=== PATIENT | female | born 1940 | race Caucasian/White ===

== ENCOUNTER 2019-06-06 09:33 | Outpatient (RCR) | payer MEDICARE, OTHER, SELFPAY | END 2019-06-24 23:59 | disposition home or self-care (01) | LOC: SPT 09:33 | PROVIDERS: Family Provider Electrodiagnostic Medicine; PCP Electrodiagnostic Medicine; Referring Provider Electrodiagnostic Medicine; Visit Provider Electrodiagnostic Medicine | DX: M62.830 Muscle spasm of back (principal); G89.29 Other chronic pain; M54.2 Cervicalgia; M43.6 Torticollis | CPT/HCPCS: 97161 ==

== ENCOUNTER 2019-06-13 10:14 | Emergency (ER) | payer MEDICARE, OTHER, SELFPAY ==
[2019-06-13 10:20] VITALS: BP 174/72; PULSE 60; RESP 17; TEMP 36.4; O2SAT 93; BMI 28.6
--- NOTE | 2019-06-13 10:20 | PC.NURSE ---
Swelling along the lateral malleolus. Pain with ROM
--- NOTE | 2019-06-13 10:24 | ED_ITS ---
Documented by User: [email or web address] Frederick 06/15/19 01:11 HPI - Extremity Problem General: Chief complaint: Extremity Injury, Lower Stated complaint: fall/right ankle pain Time Seen by Provider: 06/13/19 10:19 History of Present Illness: HPI Narrative: Patient is a 70-year-old female comes to the ED with right ankle pain. Patient was using a step ladder at home and when she was climbing down and stepped back the ladder slid a little caused her to twist her right foot and ankle. She denies any head trauma or loss of consciousness. Her only complaint was right ankle pain. She is able to bear weight, but it does cause her some right ankle pain. Pain with range of motion of ankle. She has not taken anything medication for pain. Denies fever, chills, chest pain, shortness of breath, bowel pain, nausea, vomiting, bowel symptoms, urine symptoms. Denies any numbness or tingling, loss of sensation or weakness to the extremities. Review of Systems General: Reports: 10 or more systems reviewed and unremarkable except in HPI and below PFSH ED PFSH: Statuses (acute, chronic, etc) shown below reflect problem list status as previously entered and may not be historically accurate Social History Smoking and tobacco status: former smoker Physical Exam Const: COMMON NORMALS: oriented x3 HENMT: COMMON NORMALS: normocephalic HEAD & SCALP: normocephalic MOUTH: oral and palatal mucosa normal THROAT: posterior oropharynx normal and uvula midline Neck/C-Spine: COMMON NORMALS: supple GENERAL: Yes normal visual inspection Resp: COMMON NORMALS: normal respiratory effort, no retractions, no use of accessory muscles and clear to auscultation bilaterally AUSCULTATION: clear to auscultation bilaterally Cardio: COMMON NORMALS: regular rate, regular rhythm, S1 normal heart sound, S2 normal heart sound, no gallops, no clicks, no murmurs and peripheral pulses 2+ throughout RATE: regular rate RHYTHM: regular rhythm HEART SOUNDS: S1 normal and S2 normal PERIPHERAL PULSES: pulses 2+ throughout GI: COMMON NORMALS: normal to inspection, nondistended, normoactive bowel sounds, soft to palpation, non-tender and no masses PALPATION: Yes soft : COMMON NORMALS: Yes no CVA tenderness BLADDER/KIDNEY EXAM: Yes no CVA tenderness Back/Pelvis: COMMON NORMALS: no CVA tenderness Extremity: COMMON NORMALS: normal to inspection RIGHT LOWER EXTREMITY: Yes lower leg (Mild tenderness on distal lateral side of lower leg) Right lower leg: Yes palpation and Yes neurovascular exam (intact) and Yes ankle joint (no swelling or ecchymosis seen on exam) Right ankle: Yes inspection, Yes palpation (pain on lateral malleolus- ant talofib lig and ant tibfib lig), Yes ROM (normal but with pain) and Yes neurovascular exam (intact) Neuro: COMMON NORMALS: oriented x3 and moves all extremities Course ED course: I talked with patient about pain management options and she did not want any hydrocodone. She said her pain is manageable and would prefer to take [id number] ibuprofen or Tylenol. Vital Signs: Vital signs: Vital Signs Temperature 97.5 F L 06/13/19 10:20 Pulse Rate 70 06/13/19 14:37 Respiratory Rate 15 06/13/19 14:37 Blood Pressure 137/75 06/13/19 14:37 Pulse Oximetry 97 06/13/19 14:37 MDM - Extremity (Nontraumatic) Imaging Data^: Xray Ortho: Radiologist's impression: [place] [address] XRay Report Signed Patient: Silvia Garcia Unit #: [id number] : [id number] Age/Sex: 78 / F ADM Date: 06/13/19 Loc: ER Room/Bed: Attending Dr: Ordering Provider/Ordering MD: Titi Rincon Date of Service: 06/13/19 Procedure(s): XR ankle RT 2V 62516 Accession Number(s): [id number] Report Number: [id number] WS: [id number] RIGHT ANKLE: 2 VIEW(S) TECHNIQUE: AP and lateral. HISTORY: Right ankle pain and injury COMPARISON: None available. Normal alignment at the ankle. Lucency through the distal fibula indeterminate for fracture. No displacement. No joint effusion or widening of the ankle mortise. Mild narrowing of the joint space. Small calcaneal spur. XR/XR ankle RT 2V 26319 IMPRESSION: 1. Suspicious for nondisplaced distal fibular fracture with adjacent soft tissue edema. 2. Recommend three-view imaging of the RIGHT ankle. Dictated By: Christy Flowers DO Signed By: Christy Flowers DO Signed Date/Time: 06/13/19 1205 DD/ 1154 Discharge Plan Discharge Patient Disposition: Home, Self-Care Clinical Impression: Fracture of fibula, distal, closed Qualifiers: Encounter type: initial encounter Fracture morphology: unspecified fracture morphology Laterality: right Qualified Code(s): S82.831A - Other fracture of upper and lower end of right fibula, initial encounter for closed fracture Condition: Stable Prescriptions: No Action metoprolol succinate 100 mg tablet extended release 24 hr 100 mg PO DAILY RF: 0 potassium chloride 10 mEq tablet extended release 10 meq PO DAILY RF: 0 omeprazole 40 mg capsule,delayed release(DR/EC) 40 mg PO DAILY RF: 0 simvastatin 20 mg tablet 20 mg PO DAILY RF: 0 valsartan 160 mg tablet 160 mg PO QAM RF: 0 Discharge Orders: Discharge Order (Routine); Ordered 06/13/19 Ordered By: Titi Rincon Referrals: [facility] [Provider Group] Roc Sage DO [Primary Care Provider] - Discharge Diet: Regular Discharge Activity: Limit activity as instructed Activity Restrictions/Additional Instructions: See orthopedics will be calling you in the next couple days to set up an appointment. Continue nonweightbearing until you see orthopedic doctor for evaluation. Take ibuprofen or Tylenol for pain. Drink plenty of fluids. Use crutches or walker to help with ambulating. Discharge Date/Time: 06/13/19 14:40 Coding Level of Care Code ED Lactation Nurse for Chg Fwd Documented by User: Pa Ball DO 06/15/19 06:44 HPI - Extremity Problem General: Chief complaint: Extremity Injury, Lower Stated complaint: fall/right ankle pain Time Seen by Provider: 06/13/19 10:19 PFSH ED PFSH: Statuses (acute, chronic, etc) shown below reflect problem list status as previously entered and may not be historically accurate Social History Smoking and tobacco status: former smoker Course Vital Signs: Vital signs: Vital Signs Temperature 97.5 F L 06/13/19 10:20 Pulse Rate 70 06/13/19 14:37 Respiratory Rate 15 06/13/19 14:37 Blood Pressure 137/75 06/13/19 14:37 Pulse Oximetry 97 06/13/19 14:37 Discharge Plan Discharge Patient Disposition: Home, Self-Care Clinical Impression: Fracture of fibula, distal, closed Qualifiers: Encounter type: initial encounter Fracture morphology: unspecified fracture morphology Laterality: right Qualified Code(s): S82.831A - Other fracture of upper and lower end of right fibula, initial encounter for closed fracture Condition: Stable Prescriptions: No Action metoprolol succinate 100 mg tablet extended release 24 hr 100 mg PO DAILY RF: 0 potassium chloride 10 mEq tablet extended release 10 meq PO DAILY RF: 0 omeprazole 40 mg capsule,delayed release(DR/EC) 40 mg PO DAILY RF: 0 simvastatin 20 mg tablet 20 mg PO DAILY RF: 0 valsartan 160 mg tablet 160 mg PO QAM RF: 0 Discharge Orders: Discharge Order (Routine); Ordered 06/13/19 Ordered By: Titi Rincon Referrals: [facility] [Provider Group] Roc Sage DO [Primary Care Provider] - Discharge Diet: Regular Discharge Activity: Limit activity as instructed Activity Restrictions/Additional Instructions: See orthopedics will be calling you in the next couple days to set up an appointment. Continue nonweightbearing until you see orthopedic doctor for evaluation. Take ibuprofen or Tylenol for pain. Drink plenty of fluids. Use crutches or walker to help with ambulating. Discharge Date/Time: 06/13/19 14:40 Coding Level of Care Code ED Lactation Nurse for Beka Brown
--- NOTE | 2019-06-13 10:30 | XR_ITS ---
WS: [id number] RIGHT ANKLE: 2 VIEW(S) TECHNIQUE: AP and lateral. HISTORY: Right ankle pain and injury COMPARISON: None available. Normal alignment at the ankle. Lucency through the distal fibula indeterminate for fracture. No displ acement. No joint effusion or widening of the ankle mortise. Mild narrowing of the joint space. Small calcaneal spur. XR/XR ankle RT 2V [id number] IMPRESSION: 1. Suspicious for nondisplaced distal fibular fracture with adjacent soft tiss ue edema. 2. Recommend three-view imaging of the RIGHT ankle.
[2019-06-13] MEDS: ibuprofen 600 mg Tablet PO (10:34)
--- NOTE | 2019-06-13 10:35 | PC.NURSE ---
X-ray at bedside
--- NOTE | 2019-06-13 12:18 | XRR_ITS ---
PROCEDURE INFORMATION: Exam: XR Right Ankle Exam date and time: 06/13/2019 12:35 PM Age: 78 years old Clinical indication: Pain; Ankle; Right; Additional info: Ankle pain and injury TECHNIQUE: Imaging protocol: XR Right ankle. Views: 1 or 2 views. COMPARISON: CR XR ankle RT 2V [id number] 06/13/2019 10:31 AM FINDINGS: Bones/joints: Mild periosteal reaction over the distal fibular shaft with heterogeneous densities involving the cortex and medullary bone suggesting possible healing hairline fracture versus stress/insufficiency fracture. Soft tissues: Normal. XR/XR ankle RT 1V [id number] IMPRESSION: Mild periosteal reaction over the distal fibular shaft with heterogeneous densities involving the cortex and medullary bone suggesting possible healing hairline fracture versus stress/insufficiency fracture. Osteomyelitis would be less likely.
--- NOTE | 2019-06-13 14:27 | PC.NURSE ---
Crutches ordered. Patient refused.
[2019-06-13 14:37] VITALS: BP 137/75; PULSE 70; RESP 15; O2SAT 97
--- NOTE | 2019-06-13 15:31 | DCPLANNER ---
body care manager was asked to schedule a follow up appointment for patient with ortho. body care manager called the ortho clinic, spoke with Yessenia, gave clinic patients information. body care manager was told that patients information would be printed and reviewed. Clinic will call case management social worker and patient with appointment information.
--- NOTE | 2019-06-14 11:57 | DCPLANNER ---
Patient had a follow up appointment scheduled for 06.14.[address] Beckman with ortho. Patient attended the appointment.
== END 2019-06-13 14:40 | disposition home or self-care (01) ==
PROVIDERS: Emergency Provider Physician Assistant; Family Provider Electrodiagnostic Medicine; PCP Electrodiagnostic Medicine
DX: S82.831A Other fracture of upper and lower end of right fibula, initial encounter for closed fracture (principal); X50.1XXA Overexertion from prolonged static or awkward postures, initial encounter; Z87.891 Personal history of nicotine dependence
CPT/HCPCS: 73600; 99281

== ENCOUNTER 2019-07-14 11:46 | Outpatient (CLI) | payer MEDICARE, OTHER, SELFPAY ==
--- NOTE | 2019-07-14 11:53 | XR_ITS ---
WS: [id number] RIGHT ANKLE: 3 VIEW(S) TECHNIQUE: AP, oblique(s) and lateral. HISTORY: ANKLE SPRAIN, RIGHT, PAIN IN JOINT INVOLVING ANKLE AND FOOT COMPARISON: 06/13/2019 Oblique fracture in the distal fibula is again identified. There is mild callus formation and healing . Slight separation as compared to the prior study but not significant. Fracture line is by 2 mm. Mild narrowing of the tibiotalar joint. Moderate amount of soft tissue edema surrounding the ankle, greatest laterally. Small calcaneal spur. XR/XR ankle RT min 3V* [id number] IMPRESSION: Oblique, nondisplaced healing fracture distal fibula. Soft tissue edema.
== END 2019-07-14 11:47 | disposition home or self-care (01) ==
LOC: RADWPI 11:50
PROVIDERS: Family Provider Electrodiagnostic Medicine; PCP Electrodiagnostic Medicine; Visit Provider Electrodiagnostic Medicine
DX: S93.401A Sprain of unspecified ligament of right ankle, initial encounter (principal); M25.571 Pain in right ankle and joints of right foot; S82.831A Other fracture of upper and lower end of right fibula, initial encounter for closed fracture; X58.XXXA Exposure to other specified factors, initial encounter; R60.9 Edema, unspecified
CPT/HCPCS: 73610

== ENCOUNTER → 2019-07-28 14:39 | Outpatient (BNVA) | payer MEDICARE, OTHER, SELFPAY | PROVIDERS: Family Provider Electrodiagnostic Medicine; PCP Electrodiagnostic Medicine; Visit Provider Podiatrist Foot & Ankle Surgery | DX: S82.841A Displaced bimalleolar fracture of right lower leg, initial encounter for closed fracture (principal); X58.XXXA Exposure to other specified factors, initial encounter | CPT/HCPCS: 73610 ==

== ENCOUNTER 2019-07-28 16:36 | Outpatient (CLI) | payer MEDICARE, OTHER, SELFPAY | END 2019-07-28 16:37 | disposition home or self-care (01) | LOC: SPT 16:36 | PROVIDERS: Family Provider Electrodiagnostic Medicine; PCP Electrodiagnostic Medicine; Visit Provider Podiatrist Foot & Ankle Surgery | DX: M62.830 Muscle spasm of back (principal); M54.2 Cervicalgia; M43.6 Torticollis | CPT/HCPCS: L4361 ==

== ENCOUNTER → 2019-08-22 08:30 | Outpatient (BNVA) | payer MEDICARE, OTHER, SELFPAY | PROVIDERS: Family Provider Electrodiagnostic Medicine; PCP Electrodiagnostic Medicine; Visit Provider Podiatrist Foot & Ankle Surgery | DX: S82.831A Other fracture of upper and lower end of right fibula, initial encounter for closed fracture (principal); X58.XXXA Exposure to other specified factors, initial encounter; Z46.89 Encounter for fitting and adjustment of other specified devices; S82.391D Other fracture of lower end of right tibia, subsequent encounter for closed fracture with routine healing; X58.XXXD Exposure to other specified factors, subsequent encounter | CPT/HCPCS: 73610; L1902 ==

== ENCOUNTER 2019-08-22 10:20 | Outpatient (CLI) | payer MEDICARE, OTHER, SELFPAY | END 2019-08-22 10:21 | disposition home or self-care (01) | LOC: SPT 10:21 | PROVIDERS: Family Provider Electrodiagnostic Medicine; PCP Electrodiagnostic Medicine; Visit Provider Podiatrist Foot & Ankle Surgery | DX: Z46.89 Encounter for fitting and adjustment of other specified devices (principal); S82.391D Other fracture of lower end of right tibia, subsequent encounter for closed fracture with routine healing; X58.XXXD Exposure to other specified factors, subsequent encounter | CPT/HCPCS: L1902 ==

== ENCOUNTER → 2019-10-19 09:03 | Outpatient (BNVA) | payer MEDICARE, OTHER, SELFPAY | PROVIDERS: Family Provider Electrodiagnostic Medicine; PCP Electrodiagnostic Medicine; Visit Provider Nurse Practitioner Family | DX: N30.00 Acute cystitis without hematuria (principal); R39.11 Hesitancy of micturition | CPT/HCPCS: 81001 ==

== ENCOUNTER 2019-12-02 08:59 | Outpatient (CLI) | payer MEDICARE, OTHER, SELFPAY ==
--- NOTE | 2019-12-02 09:10 | MM_ITS ---
WS: [id number] BILATERAL DIGITAL SCREENING MAMMOGRAPHY WITH CAD CLINICAL INFORMATION: SCREENING HISTORY: Screening mammogram. No current complaints. COMPARISON: TECHNIQUE: Bilateral CC and MLO views. FINDINGS: Scattered fibroglandular densities bilaterally. Stable asymmetric dense breast parenchyma subareolar left breast with nipple retraction is unchanged. No suspicious focal mass, asymmetry, calcifications, or architectural distortion. No evidence of malignancy. Punctate calcifications. Vascular calcificat ions. MM/[place] [id number] IMPRESSION: BI-RADS: 2-Benign FOLLOW UP: 1 Year Follow-up Recommend return to annual screening mammography.
== END 2019-12-02 09:00 | disposition home or self-care (01) ==
LOC: RADSHAW 09:04
PROVIDERS: PCP Electrodiagnostic Medicine; Visit Provider Electrodiagnostic Medicine
DX: Z12.31 Encounter for screening mammogram for malignant neoplasm of breast (principal)
CPT/HCPCS: 77067

== ENCOUNTER 2020-01-18 10:20 | Outpatient (CLI) | payer MEDICARE, OTHER, SELFPAY ==
--- NOTE | 2020-01-18 10:28 | XRR_ITS ---
PROCEDURE INFORMATION: Exam: XR Left Shoulder Exam date and time: 01/18/2020 10:47 AM Age: 79 years old Clinical indication: Pain and injury or trauma; Fall; Initial encounter; Blunt trauma (contusions or hematomas; Shoulder; Left; Injury details: Fell a couple of weeks ago, pain started last night; Additional info: L shoulder pain/l rotator cuff syndrome TECHNIQUE: Imaging protocol: XR Left shoulder. Views: AP internal, neutral and external rotation images of the left shoulder. COMPARISON: No relevant prior studies available. FINDINGS: Bones/joints: Normal. Soft tissues: Normal. XR/XR shoulder LT min 2V* [id number] IMPRESSION: No acute findings.
== END 2020-01-18 10:21 | disposition home or self-care (01) ==
LOC: RAD 10:24
PROVIDERS: PCP Electrodiagnostic Medicine; Visit Provider Electrodiagnostic Medicine
DX: M25.512 Pain in left shoulder (principal)
CPT/HCPCS: 73030

== ENCOUNTER → 2020-01-20 09:50 | Outpatient (BNVA) | payer MEDICARE, OTHER, SELFPAY | PROVIDERS: PCP Electrodiagnostic Medicine; Visit Provider Urology | DX: N39.0 Urinary tract infection, site not specified (principal); R33.9 Retention of urine, unspecified | CPT/HCPCS: 81001 ==

== ENCOUNTER 2020-04-23 10:41 | Outpatient (CLI) | payer MEDICARE, SELFPAY ==
--- NOTE | 2020-04-23 11:11 | CT_ITS ---
WS: [id number] CT CHEST WITH INTRAVENOUS CONTRAST HISTORY: LUNG NODULE, NECK MASS, COPD TECHNIQUE: Contiguous 5 mm axial imaging performed on the thorax. Coronal and sagittal reformats are submitted. All CT scans at [facility] use at least one of these dose optimization techniq ues: automated exposure control; mA and/or kV adjustment per patient size (includes targeted exams wh ere dose is matched to clinical indication); or iterative reconstruction. CONTRAST: Omnipaque 300; 95 mL IV. DLP: 563.13 mGycm COMPARISON: 06/22/2018 Lungs and central airway: Mild pulmonary hyperexpansion from emphysema. There is very mild diffuse in terstitial thickening bilaterally. There are several subcentimeter nodules in the RIGHT middle and RI GHT lower lobe. These nodules were present on 06/22/2018 but very minimally increased in size. Some th fidencio nodules have increased by 1 to 2 mm and are slightly more consolidated. Pleura: Normal. No pleural effusion. Heart and pericardium: Moderately enlarged heart. Heavy calcification along the mitral annular valve plane. Diffuse small pericardial effusion similar to the prior study. Mediastinum and tonny: No mediastinum or hilar adenopathy. Vessels: Mild atherosclerosis aorta. Pulmonary artery size is slightly enlarged. Chest wall and lower neck: No soft tissue masses. Upper abdomen: Scattered nonspecific hypodensities in the liver are too small to characterize. No adr enal mass. Osseous structures: Mild thoracic spondylosis. No osteoblastic or osteolytic bone disease. CT/CT chest w con* [id number] IMPRESSION: 1. Several small, subcentimeter nodules which are noncalcified in the RIGHT mi ddle and RIGHT lower lobes. Very minimal increase in size since 06/22/2018. Low- grade neoplasm versus benign etiology. As there has been very minimal interval change recommend follow-up chest CT in 6 months. 2. Chronic emphysema. 3. Moderately enlarged heart with a small pericardial effusion.
--- NOTE | 2020-04-23 11:43 | CT_ITS ---
WS: [id number] CT NECK WITH CONTRAST HISTORY: NECK MASS TECHNIQUE: Contiguous 5 mm axial images are performed through the neck with intravenous contrast. Sag ittal and coronal reformats are also submitted. All CT scans at [facility] use at least o ne of these dose optimization techniques: automated exposure control; mA and/or kV adjustment per pat ient size (includes targeted exams where dose is matched to clinical indication); or iterative recons truction. CONTRAST: CONTRAST: Omnipaque 300; 95 mL IV. DLP: 2511.43 mGy-cm. COMPARISON: None available. Marker is placed over the LEFT neck at the palpable site. The sternocleidomastoid muscle and a promin ent superficial vein either present or dislocation. There is no suspicious mass. Nasopharynx, oropharynx, hypopharynx and larynx are unremarkable. No soft tissue masses or abnormal e nhancement. Torus tubarius and fossa of Rosenmuller and parapharyngeal fat are normal. No significant lymphadenopathy is identified. Small caliber thyroid. No nodules. Degenerative disc disease at C5-6 and C6-7. No fractures. Moderate foraminal stenosis at C5-6 and C6- 7. Moderate amount of calcification at the carotid bifurcations. Stenosis less than 50%. Visualized portions of the skull base demonstrate no abnormalities. Orbits and globes are within norm al limits. No soft tissue masses. Visualized paranasal sinuses and mastoid air cells are normal. Lung apices are clear. CT/CT neck w con* [id number] IMPRESSION: 1. No neck mass identified. Palpable area corresponds to a normal sternocleido mastoid muscle and superficial vein. 2. No neck mass.
[2020-04-23] MEDS: iohexol 300 mg/mL 100 mL Btl IV ×2 (11:56→12:06)
== END 2020-04-23 10:42 | disposition home or self-care (01) ==
LOC: RADWPI 10:48
PROVIDERS: PCP Electrodiagnostic Medicine; Visit Provider Electrodiagnostic Medicine
DX: R22.1 Localized swelling, mass and lump, neck (principal); J44.9 Chronic obstructive pulmonary disease, unspecified; I51.7 Cardiomegaly; I31.3 Pericardial effusion (noninflammatory)
CPT/HCPCS: 70491; 71260; Q9967

== ENCOUNTER 2020-06-21 12:33 | Emergency (ER) | payer MEDICARE, SELFPAY ==
[2020-06-21 12:41] VITALS: BP 184/80; PULSE 60; RESP 16; TEMP 36.6; O2SAT 93; BMI 29.2
--- NOTE | 2020-06-21 12:57 | ED_ITS ---
HPI - Dizziness General: Chief Complaint: Dizziness Stated Complaint: Dizzy/N Time Seen by Provider: 06/21/20 12:46 History of Present Illness: HPI Narrative: The patient is a 79-year-old female who comes to the ER complaining of nausea and dizziness when she stands up. She says occasionally she gets diarrhea which really empties her out. She denies vomiting and diarrhea today. MD elicited complaint: dizziness Onset (ago): hour(s) (1) Timing: sudden onset Severity: mild Description: lightheadedness Exacerbating factors: nothing Associated symptoms: Reports nausea; Denies chest pain, headache(s), nasal congestion, palpitations or vomiting Associated neuro symptoms: Deny confusion or numbness in extremities Review of Systems General: Reports: 10 or more systems reviewed and unremarkable except in HPI and below Const: Denies: fatigue Eyes: Denies: change in vision, blurry vision or eye redness ENMT: Denies: throat pain, swelling of lips/tongue, ear or mastoid pain or nasal congestion Card: Denies: chest pain, palpitations, irregular heart rhythm, edema, dyspnea on exertion or orthopnea Resp: Denies: dyspnea, productive cough or non-productive cough GI: Reports: nausea and GI cramping; Denies: abdominal pain, vomiting or diarrhea : Denies: flank pain, difficulty voiding, urinary frequency or urinary urgency Musc: Denies: neck pain, back pain, extremity pain, joint pain, joint redness, limited range of motion or muscle weakness Skin/Breast: Denies: rash, pruritus, erythema, skin pain or skin tenderness Neuro: Denies: headache(s), numbness in extremities, weakness in extremities, sensory changes, difficulty walking, dizziness, confusion or Slurred speech present Psych: Denies: anxiety or depression Endo: Denies: polyuria All/Imm: Denies: urticaria, throat swelling or tongue swelling PFSH ED PFSH: Medical History (Updated 06/21/20 @ 13:59 by Jordan Almaraz MD) Recurrent UTI Urinary hesitancy Surgical History H/O tubal ligation H/O: hysterectomy Family History Mother , IN HER 80'S Diabetes Father , IN HIS 80'S Hypertension Social History Smoking and tobacco status: former smoker Alcohol intake: never Marital status: / Current occupational status: retired Current occupation: Retired History of recent travel: No Physical Exam Const: COMMON NORMALS: no acute distress, average body habitus, patient oriented x3, no limitations, healthy appearing, alert and well nourished GENERAL APPEARANCE: cooperative, comfortable, well kempt and well developed ORIENTATION/CONSCIOUSNESS: Yes awake, Yes oriented to person, Yes oriented to place and Yes oriented to time HENMT: COMMON NORMALS: normocephalic, external ears normal and Normal external nose present HEAD & SCALP: normal to inspection and normocephalic NOSE: Normal external nose present EXTERNAL EAR: Yes external ears normal MOUTH: Normal oral and palatal mucosa present THROAT: posterior oropharynx normal Eye: COMMON NORMALS: Equal, round and reactive pupils present and EOMs intact bilaterally GENERAL EYE: appearance normal, both eyes and all related structures PUPIL: Yes Equal, round and reactive pupils present Neck/C-Spine: COMMON NORMALS: full ROM, no lymphadenopathy, no meningeal signs and no JVD GENERAL: Yes normal visual inspection Lymph: LYMPHATIC: no lymphadenopathy noted Chest: COMMONS NORMALS: normal inspection of the chest and normal palpation of entire chest wall Resp: COMMON NORMALS: normal respiratory effort, No retractions, No use of accessory muscles, clear to auscultation bilaterally and percussion normal EFFORT & INSPECTION: Yes able to speak in complete sentences AUSCULTATION: clear to auscultation bilaterally PERCUSSION: percussion normal Cardio: COMMON NORMALS: no JVD, regular rate, regular rhythm, S1 normal heart sound present, S2 normal heart sound present and Peripheral pulses 2+ throughout RATE: regular rate RHYTHM: regular rhythm HEART SOUNDS: S1 normal heart sound present and S2 normal heart sound present PERIPHERAL PULSES: Peripheral pulses 2+ throughout GI: COMMON NORMALS: Normal to inspection, nondistended, normoactive bowel sounds present, Soft to palpation, non-tender and no masses INSPECTION: Yes normal to inspection AUSCULTATION: Yes Hyperactive bowel sounds present PALPATION: Yes Soft to palpation : COMMON NORMALS: Yes no CVA tenderness BLADDER/KIDNEY EXAM: Yes no CVA tenderness Back/Pelvis: COMMON NORMALS: no CVA tenderness, thoracic and lumbar spine normal to inspection, no thoracic nor lumbar tenderness and thoraco-lumbar ROM normal Extremity: COMMON NORMALS: normal to inspection, full ROM, capillary refill normal, no joint enlargement and no pedal edema GENERAL: Yes normal exam except as noted Neuro: COMMON NORMALS: patient oriented x3, CN's II-XII intact bilaterally, moves all extremities, no focal motor deficits, no sensory deficits noted and gait normal SENSORIUM/ORIENTATION: Yes alert, Yes oriented to person, Yes oriented to place and Yes oriented to time MENINGEAL SIGNS: Yes no meningeal signs Psych: COMMON NORMALS: mental status grossly normal, Normal thought process present, cooperative, normal affect and speech normal APPEARANCE: Yes well kempt ATTITUDE: Yes calm SPEECH: Yes normal speech THOUGHT PROCESS: Normal thought process present Skin: COMMON NORMALS: no rashes or lesions noted GENERAL SKIN EXAM: no rashes or lesions noted Course Vital Signs: Vital signs: Vital Signs Temperature 97.8 F 06/21/20 12:41 Pulse Rate 53 L 06/21/20 14:11 Respiratory Rate 16 06/21/20 14:11 Blood Pressure 164/63 06/21/20 14:11 Pulse Oximetry 92 06/21/20 14:11 MDM - Dizziness MDM Narrative: Medical decision making narrative: The patient came in complaining of nausea and dizziness. She was given IV fluids, Zofran, and Toradol and her symptoms resolved quickly. She was discharged in stable condition. Follow-up with primary in a few days to monitor improvement of symptoms. Take the Zofran to help with nausea. Lab Data: Labs: Lab Results 06/21/20 06/21/20 Range/Units 13:14 13:14 WBC 8.1 (4.0-10.0) 10^3/ uL RBC 5.01 (4.1-5.3) 10^6/u L Hgb 12.8 (11.5-15.3) g/dL Hct 41.8 (37.0-47.0) % MCV 83.4 (81-99) fL MCH 25.5 L (28.0-34.0) pg MCHC 30.6 (30.0-36.0) g/dL RDW 14.5 (12.1-15.1) % Plt Count 214 (130-400) 10^3/c mm MPV 12.6 H (7.4-10.4) fL Neut % (Auto) 71.3 % Lymph % (Auto) 17.4 % [place] % (Auto) 8.0 % Eos % (Auto) 2.5 % Baso % (Auto) 0.6 % Neut # (Auto) 5.76 (1.8-7.7) 10^3/u L Lymph # (Auto) 1.4 (0.8-4.8) 10^3/u L [place] # (Auto) 0.7 (0.2-0.9) 10^3/u L Eos # (Auto) 0.2 (0.0-0.8) 10^3/u L Baso # (Auto) 0.1 (0.0-0.1) 10^3/u L Nucleated RBC % (a uto) 0 % Nucleated RBCs # 0.0 /100WBC Sodium 141 (136-145) mmol/L Potassium 3.6 (3.5-5.1) mmol/L Chloride 104 (98-107) mmol/L Carbon Dioxide 27 (22-29) mmol/L Anion Gap 13.6 (5-19) BUN 12 (8-23) mg/dL Creatinine 0.8 (0.5-0.9) mg/dL GFR Calculation Not Reportable Glucose 147 H (65-115) mg/dL Calculated Osmolal ity 294 (285-295) mOsm/k g Calcium 9.7 (8.5-10.5) mg/dL Total Bilirubin 0.2 (0.15-1.2) mg/dL AST 17 (0-32) U/L ALT 12 (0-33) U/L Alkaline Phosphata se 79 (35-105) IU/L Total Protein 6.7 (6.6-8.7) g/dL Albumin 4.1 (3.5-5.2) g/dL Globulin 2.6 (1.3-4.6) g/dL Lipase 52 (13-60) U/L Discharge Plan Discharge Patient Disposition: Home Clinical Impression: Nausea Condition: Stable Prescriptions: New ondansetron 4 mg tablet,disintegrating 4 mg PO Q8H 4 Days Qty: 12 RF: 0 No Action amlodipine 5 mg tablet 5 mg PO DAILY@0500 RF: 0 metoprolol succinate 100 mg tablet extended release 24 hr 100 mg PO DAILY@0500 RF: 0 potassium chloride 10 mEq tablet extended release 10 meq PO DAILY@0500 RF: 0 simvastatin 20 mg tablet 20 mg PO DAILY@0500 RF: 0 valsartan 160 mg tablet 160 mg PO DAILY@0500 RF: 0 Aspir-81 81 mg Tablet,Delayed Release (Dr/Ec) 81 mg PO DAILY@0500 RF: 0 Euthyrox 88 mcg tablet 88 mcg PO DAILY@0500 RF: 0 pantoprazole 40 mg tablet,delayed release (DR/EC) 40 mg PO DAILY@0500 RF: 0 cefuroxime axetil 500 mg tablet 500 mg PO DAILY PRN (Reason: uti) RF: 0 Pyridium 1 tab PO PRN PRN (Reason: uti) RF: 0 cyanocobalamin (vitamin B-12) 1,000 mcg/mL solution See Rx Instructions .ROUTE .COMPLEX RF: 0 Discharge Orders: Discharge ED (Routine); Ordered 06/21/20 Ordered By: Jordan Almaraz Referrals: Roc Sage, [Primary Care Provider] - Discharge Diet: Advance as tolerated Discharge Activity: Resume usual activity Patient Instructions: Acute Nausea and Vomiting (ED) Activity Restrictions/Additional Instructions: Please follow-up with your primary care physician in a few days to monitor impro vement of your symptoms and return to the ER with worsening symptoms. You may use Zofran tablets which dissolve in your mouth to help with nausea. Coding Level of Care Code ED Salon Assistant for Beka Fwpily Exam Comprehensive
[2020-06-21] MEDS: sodium chloride 0.9% 1,000 ML 999 ML IV (13:15)
[2020-06-21] MEDS: ondansetron 2 mg/ML SDV 2 mL 4 MG IVP (13:15)
[2020-06-21] MEDS: ketorolac 30 mg/mL INJ 15 MG IVP (13:15)
[2020-06-21 13:29] LABS: Basophils # 0.1 10^3/uL (0.0-0.1); Basophils % 0.6 %; Eosinophils # 0.2 10^3/uL (0.0-0.8); Eosinophils % 2.5 %; Hematocrit 41.8 % (37.0-47.0); Hemoglobin 12.8 g/dL (11.5-15.3); Lymphocytes # 1.4 10^3/uL (0.8-4.8); Lymphocytes % 17.4 %; Mean Corpuscular HGB Conc 30.6 g/dL (30.0-36.0); Mean Corpuscular Hemoglobin 25.5 pg (28.0-34.0); Mean Corpuscular Volume 83.4 fL (81-99); Mean Platelet Volume 12.6 fL (7.4-10.4); Monocytes # 0.7 10^3/uL (0.2-0.9); Neutrophils # 5.76 10^3/uL (1.8-7.7); Neutrophils % 71.3 %; Nucleated Red Blood Cells % 0 %; Platelet Count 214 10^3/cmm (130-400); Red Blood Count 5.01 10^6/uL (4.1-5.3); Red Cell Distribution Width 14.5 % (12.1-15.1); White Blood Count 8.1 10^3/uL (4.0-10.0)
[2020-06-21 14:11] VITALS: BP 164/63; PULSE 53; RESP 16; O2SAT 92
[2020-06-21 14:46] LABS: Alanine Aminotransferase 12 U/L (0-33); Albumin Level 4.1 g/dL (3.5-5.2); Alkaline Phosphatase 79 IU/L (35-105); Anion Gap 13.6 (5-19); Aspartate Amino Transferase 17 U/L (0-32); Blood Urea Nitrogen 12 mg/dL (8-23); Calcium 9.7 mg/dL (8.5-10.5); Carbon Dioxide 27 mmol/L (22-29); Chloride 104 mmol/L (98-107); Globulin 2.6 g/dL (1.3-4.6); Glucose 147 mg/dL (65-115); Lipase 52 U/L (13-60); Osmolality Calculated 294 mOsm/kg (285-295); Potassium 3.6 mmol/L (3.5-5.1); Sodium 141 mmol/L (136-145); Total Bilirubin 0.2 mg/dL (0.15-1.2); Total Protein 6.7 g/dL (6.6-8.7)
== END 2020-06-21 14:11 | disposition home or self-care (01) ==
PROVIDERS: Emergency Provider Family Medicine; PCP Electrodiagnostic Medicine
DX: R11.0 Nausea (principal); Z79.82 Long term (current) use of aspirin; Z87.891 Personal history of nicotine dependence
CPT/HCPCS: 12345; 80053; 83690; 85025; 96361; 96374; 96375; 99282; 99283; J1885; J2405; J7030

== ENCOUNTER 2020-06-27 09:23 | Outpatient (CLI) | payer MEDICARE, SELFPAY ==
--- NOTE | 2020-06-27 09:38 | XR_ITS ---
WS: [id number] KUB, AP view, 06/27/2020 Clinical Data: ABDOMINAL BLOATING ABD PAIN/EARLY SATIETY Comparison: KUB, 02/02/2015. Findings: No abnormal intraabdominal masses or calcifications are seen. There is no dilatated small bowel or ev idence of obstruction. There is gas and fecal material throughout the colon. XR/XR KUB [id number] Impression: Negative KUB.
--- NOTE | 2020-06-27 09:38 | XR_ITS ---
WS: [id number] PA and lateral chest, 06/27/2020 Clinical Data: EARLY SATIETY/LUNG NODULE/ABD BLOATING PAIN Comparison: Portable chest, 06/22/2018. Findings: No nodules, masses or effusions are seen. The heart is enlarged. The pulmonary vascularity is not increased. No pneumonia or pneumothorax is seen. The aortic arch and descending aorta are tort uous. XR/XR chest 2V* [id number] Impression: Atherosclerosis and cardiomegaly.
== END 2020-06-27 09:24 | disposition home or self-care (01) ==
LOC: RAD 09:33
PROVIDERS: PCP Electrodiagnostic Medicine; Visit Provider Electrodiagnostic Medicine
DX: R14.0 Abdominal distension (gaseous) (principal); R10.9 Unspecified abdominal pain; R68.81 Early satiety; I70.90 Unspecified atherosclerosis; I51.7 Cardiomegaly
CPT/HCPCS: 71046; 74018

== ENCOUNTER 2020-07-04 08:23 | Outpatient (CLI) | payer MEDICARE, SELFPAY ==
--- NOTE | 2020-07-04 08:27 | CT_ITS ---
WS: [id number] CT ABDOMEN AND PELVIS WITH CONTRAST HISTORY: ABDOMINAL BLOATING AND PAIN, EARLY SATIETY TECHNIQUE: Imaging performed of the abdomen and pelvis with IV contrast. Single phase imaging of the abdomen. Coronal and sagittal reformats are submitted. All CT scans at [facility] use at least one of these dose optimization techniques: automated exposure control; mA and/or kV adjustment per patient size (includes targeted exams where dose is matched to clinical indication); or iterativ e reconstruction. IV CONTRAST: Omnipaque 300; 95 mL IV. Oral contrast: Yes. DLP: 1146.67 mGycm COMPARISON: 08/11/2014 Lower thorax: 8mm nodule in the medial RIGHT middle lobe unchanged since 04/23/2020. Mildly enlarged heart. There is a small pericardial effusion which was also present on the prior study. Small hiatal hernia. Liver/biliary system: Normal size liver. There are a few scattered hypodensities which are too small to characterize. No bile duct dilatation. Gallbladder: Normal. No gallstones or wall thickening. No pericholecystic fluid. Pancreas: Normal. Spleen: Normal. Adrenal glands: Normal. Right kidney: Normal. Left kidney: Normal. Aorta: Mild atherosclerosis of the aorta. No aneurysm. Lymphadenopathy: None. Free fluid: None. GI tract: Normal appendix. Mild diffuse constipation and a few diverticula in the descending and sigm oid colon. No acute inflammation. Abdominal wall: Unremarkable abdominal wall. No hernia. Pelvis: Well-distended urinary bladder. There is a tiny focus of air in the urinary bladder. No free fluid in the pelvis. Bones: Degenerative disc disease and facet arthritis. No osteoblastic or osteolytic disease. CT/CT abdomen pelvis w con* [id number] IMPRESSION: 1. Tiny focus of air in the urinary bladder. Nonspecific amount of air. Correl ate for possible urinary tract infection. Enterovesical fistula is a possibilit y although there is no evidence for a fistula on this examination otherwise. 2. Mild cardiomegaly and stable small pericardial effusion. 3. Diverticulosis without acute diverticulitis.
[2020-07-04] MEDS: iohexol 300 mg/mL 50 mL Btl PO (09:02)
[2020-07-04] MEDS: iohexol 300 mg/mL 100 mL Btl IV (10:09)
== END 2020-07-04 08:24 | disposition home or self-care (01) ==
LOC: RADWPI 08:26
PROVIDERS: PCP Electrodiagnostic Medicine; Visit Provider Electrodiagnostic Medicine
DX: R10.9 Unspecified abdominal pain (principal); R14.0 Abdominal distension (gaseous); R68.81 Early satiety; K57.90 Diverticulosis of intestine, part unspecified, without perforation or abscess without bleeding; I51.7 Cardiomegaly; I31.3 Pericardial effusion (noninflammatory)
CPT/HCPCS: 74177; Q9967

== ENCOUNTER → 2020-08-15 09:00 | Outpatient (BNVA) | payer MEDICARE, SELFPAY | PROVIDERS: PCP Electrodiagnostic Medicine; Visit Provider Surgery | DX: R10.9 Unspecified abdominal pain (principal); Z86.010 Personal history of colon polyps; Z01.812 Encounter for preprocedural laboratory examination | CPT/HCPCS: 87635 ==

== ENCOUNTER 2020-08-20 05:52 | Day surgery (SDC) | payer MEDICARE, SELFPAY ==
[2020-08-16 10:44] VITALS: BMI 29.5
[2020-08-20 06:14] VITALS: BP 154/61; PULSE 60; RESP 18; TEMP 36.8; O2SAT 95
[2020-08-20] MEDS: sodium chloride 0.9% 1,000 ML 30 ML IV (06:34)
--- NOTE | 2020-08-20 06:37 | ANES.PREANE2 ---
Documented by User: Monisha Case CRNA 08/20/20 06:51 Pre-Anesthetic Assessment Pre-Anesthetic Assessment: Height/Weight: Height 1.63 m Weight 78.018 kg Temp Pulse Resp BP Pulse Ox 98.3 F 60 18 154/61 95 08/20/20 06:14 08/20/20 06:14 08/20/20 06:14 08/20/20 06:14 08/20/20 06:14 Preop Diagnosis: panendoscopy Proposed Procedure: Operation Date: 08/20/20 07:00 Proposed Procedures p EGD/colon 16112 79706 R10.9 Z86.010(Not Applicable) - Ponce Vega MD s Colonoscopy(Not Applicable) - Ponce Vega MD Was Beta Mayda taken within 24 hours: Yes Was Clonidine taken within 24 hours: N/A Last intake: Intake Last Liquid Date 08/19/20 Last Liquid Time 18:00 Last Solid Date 08/18/20 Last Solid Time 17:00 Social: Social History: No alcohol and No tobacco Exam: Pre-Anes Outpt Exam: alert, oriented x 3, clear to auscultation bilaterally and regular rate & rhythm Airway: Submandibular: WNL Cervical ROM: WNL MP: 2 Dentition: False History/ROS: No significant history except as noted Pulmonary: Pulmonary: Cough and SOB (with activity.) Comments: Frequent cough. (3 years) CV/HEM: CV/HEM: Angina (Unstable), HTN and Palp (intermittently) Comments: stress test 2013, patient states chest pain x1 per month no aggravating or precipitating factors. No actions alleviate the chest pain it just goes away on its own . Patient also reports intermittent palpitations. : : UTI Hepatic: Hepatic: None reported GI: GI: GERD Metabolic: Metabolic: Thyroid Musc/skel: Musc/skel: None reported Neuropsych: Neuropsych: None reported Anesthetic Plan: ASA status: 3 Anesthesia: MAC Risk of > 500 ml blood loss (7ml/kg in children): No Other Pertinent Information: Dr. Jarvis notified of angina and palpatations reported, will assess patient. Meds/Allergies Current Medications: Current Medications Generic Name Dose Route Start Last Admin Trade Name Freq PRN Reason Stop Dose Admin Sodium Chloride 1,000 mls @ 30 ml s/hr 08/20/20 06:15 08/20/20 06:34 Sodium Chloride 0.9% IV 08/21/20 06:14 30 mls/hr .Q24H MARIAA Administration PFSH Anesthesia PFSH: Medical History (Updated 07/17/20 @ 15:05 by Ponce Vega MD) Recurrent UTI Urinary hesitancy Uterine cancer Surgical History (Updated 07/17/20 @ 15:05 by Ponce Vega MD) H/O tubal ligation H/O: hysterectomy History of colonoscopy with polypectomy (~2012) Family History Mother , IN HER 80'S Diabetes Father , IN HIS 80'S Hypertension Social History Smoking and tobacco status: former smoker Alcohol intake: never Marital status: / Current occupational status: retired Current occupation: Retired History of recent travel: No Data Anesthesia Cardiac Studies: No Data to Display Documented by User: Kandy Jarvis 08/20/20 07:38 Pre-Anesthetic Assessment Pre-Anesthetic Assessment: Proposed Procedure: EGD/Colonoscopy Familial anesthetic complications: None Was Beta Mayda taken within 24 hours: Yes Was Clonidine taken within 24 hours: N/A Last intake: NPO > 8 hrs Social: Social History: No alcohol and No tobacco Exam: Pre-Anes Outpt Exam: alert, oriented x 3, clear to auscultation bilaterally and regular rate & rhythm CV/HEM: Comments: CONCLUSIONS 2019 echo Normal left ventricular size, systolic function and wall thickness, with no regional wall motion abnormalities. Grade I/IV diastolic dysfunction (abnormal relaxation filling pattern), normal to mildly elevated filling pressures. Left ventricular ejection fraction is estimated at 60 %. Mildly increased left atrial size. Structurally normal mitral valve. Mild mitral annular calcification. Trace mitral valve regurgitation. Tiny circumferential pericardial effusion without hemodynamic compromise. GI: GI: GERD Metabolic: Metabolic: Hyperlipidemia and Thyroid Anesthetic Plan: ASA status: 2 Anesthesia: MAC Risk of > 500 ml blood loss (7ml/kg in children): No Other Pertinent Information: Patient states she's been getting intermittent chest pains for several months now associated with activity (while gardening/lifting). It is substernal and she describes it as pressure that Just hits me. the pain is relieved by rest. Seems to last only briefly (seconds). SHe does have SOB with 2 flights of stairs. She has had several visits to ER for HTN, chest pain, and palpitations, each time sent home in stable condition, with no abnormalities found, but has not been worked up by cardiology. She follows up with her PCP. She used to see Dr. Galarza. EKG in GI shows sinus bradycardia. Offered patient opportunity to reschedule and follow up with cardiology. States she would like to proceed. Procedure is low risk procedure. PFSH Anesthesia PFSH: Medical History (Updated 07/17/20 @ 15:05 by Ponce Vega MD) Recurrent UTI Urinary hesitancy Uterine cancer Surgical History (Updated 07/17/20 @ 15:05 by Ponce Vega MD) H/O tubal ligation H/O: hysterectomy History of colonoscopy with polypectomy (~2012) Family History Mother , IN HER 80'S Diabetes Father , IN HIS 80'S Hypertension Social History Smoking and tobacco status: former smoker Alcohol intake: never Marital status: / Current occupational status: retired Current occupation: Retired History of recent travel: No Data Anesthesia Cardiac Studies: No Data to Display
--- NOTE | 2020-08-20 07:09 | ECG_ITS ---
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 Measurements Intervals [place] Rate: 57 P: 51 GA: 184 QRS: 4 QRSD: 101 T: 57 QT: 429 QTc: 418 Interpretive Statements SINUS BRADYCARDIA Compared to ECG 03/19/2019 20:05:53 No significant changes Electronically Signed On 08-20-2020 19:15:24 CDT by Ron Davila M.D. [email or web address]ewalth[facility] hospitalSolstice Biologicsmer[id number]
--- NOTE | 2020-08-20 07:37 | P.HP_ITS ---
Same Day Surgery H&P Indication for Procedure/HPI DATE OF PROCEDURE: August 20, 2020 CHIEF COMPLAINT/INDICATIONFOR SURGICAL PROCEDURE: egd and colon PREOP DIAGNOSIS: panendoscopy PLANNED PROCEDRUE: Operation Date: 08/20/20 07:00 Proposed Procedures p EGD/colon 06865 49214 R10.9 Z86.010(Not Applicable) - Ponce Vega MD s Colonoscopy(Not Applicable) - Ponce Vega MD Medications/Allergies* Home Medications Medication Instructions Recorded Confirmed Type metoprolol succinate 100 mg PO DAILY@1800 06/13/19 08/20/20 History potassium chloride 10 meq PO DAILY@0500 06/13/19 08/16/20 History simvastatin 20 mg PO DAILY@1800 06/13/19 08/20/20 History valsartan 160 mg PO DAILY@0500 06/13/19 08/16/20 History amlodipine 5 mg tablet 5 mg PO DAILY@0500 07/15/19 08/16/20 History Pyridium 1 tab PO PRN PRN 06/21/20 08/16/20 History aspirin [Aspir-81] 81 mg PO DAILY@0500 06/21/20 08/16/20 History cyanocobalamin (vitamin B-12) See Rx Instructions .ROUTE .COMPLEX 06/21/20 08/16/20 History levothyroxine [Euthyrox] 88 mcg PO DAILY@0500 06/21/20 08/16/20 History pantoprazole 40 mg PO DAILY@0500 06/21/20 08/16/20 History Allergies/Adverse Reactions Allergy/AdvReac Type Severity Reaction Status Date / Time No Known Allergies Allergy Verified 08/20/20 06:22 Current Medications: Generic Name Dose Route Start Last Admin Trade Name Freq PRN Reason Stop Dose Admin Sodium Chloride 1,000 mls @ 30 mls/hr 08/20/20 06:15 08/20/20 06:34 Sodium Chloride 0.9% IV 08/21/20 06:14 30 mls/hr .Q24H MARIAA Administration Pertinent History/Comorbid Conditions* Medical History (Updated 07/17/20 @ 15:05 by Ponce Vega MD) Recurrent UTI Urinary hesitancy Uterine cancer Surgical History (Updated 07/17/20 @ 15:05 by Ponce Vega MD) H/O tubal ligation H/O: hysterectomy History of colonoscopy with polypectomy (~2012) Family History (Updated 10/19/19 @ 09:01 by Ragean Armas LPN) Father, IN HIS 80'S Mother, IN HER 80'S Diabetes Mother Hypertension Father Social History Smoking and tobacco status: former smoker Alcohol intake: never Marital status: / Current occupational status: retired Current occupation: Retired History of recent travel: No Pertinent Exam Findings alert, oriented x 3 and regular rate & rhythm Recommendations Surgery/Procedure today Coding Level of Care Code Acute Gyroscopic Engineering Technician for Beka Brown
[2020-08-20 08:14] VITALS: BP 127/64; PULSE 67; RESP 24; TEMP 36.8; O2SAT 92
[2020-08-20 08:29] VITALS: BP 125/73; PULSE 69; RESP 18; TEMP 36.7; O2SAT 95
--- NOTE | 2020-08-20 08:56 | ANE.PACU2 ---
Inpatient post-anesthesia follow up: Airway intact: Yes Vital signs: Temperature 98.1 F Pulse Rate 69 Respiratory Rate 18 Blood Pressure 125/73 Pulse Oximetry 95 Oxygen Delivery Me thod Room Air Oxygen Flow Rate 3 Fraction of Inspir ed Oxygen Hydration adequate: Yes Nausea and vomiting: No Mental status: Baseline
== END 2020-08-20 08:50 | disposition home or self-care (01) ==
PROVIDERS: PCP Electrodiagnostic Medicine; Visit Provider Surgery
PROC: 0DJ08ZZ Inspection of Upper Intestinal Tract, Via Natural or Artificial Opening Endoscopic (ICD-10-PCS; CPT 43235; principal; 2020-08-20 07:00)
PROC: 0DJD8ZZ Inspection of Lower Intestinal Tract, Via Natural or Artificial Opening Endoscopic (ICD-10-PCS; CPT 45378; 2020-08-20 07:00)
DX: Z86.010 Personal history of colon polyps (principal); K22.2 Esophageal obstruction; K29.70 Gastritis, unspecified, without bleeding; K44.9 Diaphragmatic hernia without obstruction or gangrene; K57.30 Diverticulosis of large intestine without perforation or abscess without bleeding; Z85.42 Personal history of malignant neoplasm of other parts of uterus; Z87.891 Personal history of nicotine dependence; I10 Essential (primary) hypertension
CPT/HCPCS: 43239; 45378; 88305; 93005; 96360; 96361; J2704; J3490; J7030

== ENCOUNTER 2020-10-13 07:12 | Emergency (ER) | payer MEDICARE, SELFPAY ==
[2020-10-13 07:22] VITALS: BP 199/79; PULSE 69; RESP 18; TEMP 36.9; O2SAT 95; BMI 29.2
--- NOTE | 2020-10-13 07:32 | W.ED.GENADLT ---
HPI - General Adult General: Chief complaint: General Medical Stated complaint: vision issues Time Seen by Provider: 10/13/20 07:14 Source: patient, family and RN notes reviewed Limitations: no limitations History of Present Illness: HPI narrative: This patient is an 80-year-old female who presents to the emergency department for intermittent feeling of warmness to her forehead and then will get chills mild headache states this been happening every evening. But then will resolve. Patient denies any cough or congestion and states she has had the mcgee virus vaccine patient denies any fatigue. Patient states just at times she feels hot like a hot flash and then she will get a chill. Patient does have high blood pressure and just took her blood pressure medicine prior to arrival. Patient denies chest pain or shortness of breath. Will do medical evaluation treat as needed. Patient denies any recent tick exposure. Onset (ago): day(s) (5) Pain Consistency: intermittent Associated symptoms: Deny chest pain, dyspnea, headache(s), nausea, rash, palpitations or vomiting Review of Systems General: Reports: 10 or more systems reviewed and unremarkable except in HPI and below Const: Reports: chills; Denies: fever(s), body aches or fatigue Eyes: Denies: change in vision or blurry vision ENMT: Denies: throat pain, hoarseness or mouth pain Card: Denies: chest pain or palpitations Resp: Denies: dyspnea GI: Denies: nausea or vomiting : Denies: flank pain, difficulty voiding, dysuria, urinary frequency, urinary urgency or urinary hesitancy Musc: Denies: neck pain, back pain, extremity pain, extremity swelling, joint pain, joint swelling, joint redness, joint warmth or limited range of motion Skin/Breast: Denies: rash Neuro: Denies: headache(s) Psych: Denies: anxiety or depression PFSH ED PFSH: Medical History Recurrent UTI Urinary hesitancy Uterine cancer Surgical History H/O esophagogastroduodenoscopy (08/20/20) Gastritis H/O tubal ligation H/O: hysterectomy History of colonoscopy with polypectomy (08/20/20) Diverticulosis Family History Mother , IN HER 80'S Diabetes Father , IN HIS 80'S Hypertension Social History Smoking and tobacco status: former smoker Alcohol intake: never Marital status: / Current occupational status: retired Current occupation: Retired History of recent travel: No Physical Exam Const: COMMON NORMALS: no acute distress, average body habitus, patient oriented x3, no limitations, healthy appearing, alert and well nourished HENMT: COMMON NORMALS: normocephalic, atraumatic, external ears normal, EAC's normal, TM's normal bilaterally, Normal external nose present and Normal nasal mucous membranes and turbinates present HEAD & SCALP: normocephalic and atraumatic NOSE: Normal external nose present and Normal nasal mucous membranes and turbinates present EXTERNAL EAR: Yes external ears normal EXTERNAL AUDITORY CANAL: EAC's normal TYMPANIC MEMBRANE: TM's normal bilaterally Neck/C-Spine: COMMON NORMALS: full ROM, no lymphadenopathy, supple, no meningeal signs, no JVD, Thyroid normal and No carotid bruits THYROID: Thyroid normal Chest: COMMONS NORMALS: normal inspection of the chest, normal palpation of entire chest wall, normal inspection of the breasts and normal palpation of the breasts Breast/axilla inspection: Yes normal inspection of the breasts BREAST/AXILLA PALPATION: Yes normal palpation of the breasts Resp: COMMON NORMALS: normal respiratory effort, No retractions, No use of accessory muscles, clear to auscultation bilaterally and percussion normal AUSCULTATION: clear to auscultation bilaterally PERCUSSION: percussion normal Cardio: COMMON NORMALS: no JVD, regular rate, regular rhythm, S1 normal heart sound present, S2 normal heart sound present, No gallops present (Cardio), No clicks present (Cardio), No murmurs present (Cardio), No rub (Cardio) and Peripheral pulses 2+ throughout RATE: regular rate RHYTHM: regular rhythm HEART SOUNDS: S1 normal heart sound present and S2 normal heart sound present PERIPHERAL PULSES: Peripheral pulses 2+ throughout GI: COMMON NORMALS: Normal to inspection, nondistended, normoactive bowel sounds present, Soft to palpation, non-tender, No hepatosplenomegaly present, no masses and no bruits PALPATION: Yes Soft to palpation and Yes No hepatosplenomegaly present : COMMON NORMALS: Yes no CVA tenderness, Yes normal external appearance, Yes normal appearance of the vagina, Yes normal appearance of the cervix, Yes normal bimanual exam, Yes No adnexal tenderness and Yes no masses BLADDER/KIDNEY EXAM: Yes no CVA tenderness BIMANUAL EXAM - VAGINA & UTERUS: Yes normal bimanual exam Back/Pelvis: COMMON NORMALS: no CVA tenderness, thoracic and lumbar spine normal to inspection, no thoracic nor lumbar tenderness, thoraco-lumbar ROM normal and straight leg raise negative bilaterally Extremity: COMMON NORMALS: normal to inspection, full ROM, capillary refill normal, no joint enlargement, no clubbing, cyanosis or edema, no calf tenderness and no pedal edema Neuro: COMMON NORMALS: patient oriented x3 SENSORIUM/ORIENTATION: Yes alert MENINGEAL SIGNS: Yes no meningeal signs Course Reevaluation(s): Reevaluation #1: This patient is an 80-year-old female who presents to the emergency department for intermittent feeling of warmness to her forehead and then will get chills mild headache states this been happening every evening. But then will resolve. Patient denies any cough or congestion and states she has had the mcgee virus vaccine patient denies any fatigue. Patient states just at times she feels hot like a hot flash and then she will get a chill. Patient does have high blood pressure and just took her blood pressure medicine prior to arrival. Patient denies chest pain or shortness of breath. Patient again has no complaints at discharge. States she feels completely fine. Patient does have a scheduled appointment with her PCP in 2 days. Patient will be discharged home. Continue all home medications. Normally healthy diet. Blood pressure log as instructed. Time: 08:24 Vital Signs: Vital signs: Vital Signs Temperature 98.5 F 10/13/20 07:22 Pulse Rate 69 10/13/20 07:22 Respiratory Rate 18 10/13/20 07:22 Blood Pressure 168/88 10/13/20 07:48 Pulse Oximetry 95 10/13/20 07:22 MDM - General Adult MDM Narrative: Medical decision making narrative: This patient is an 80-year-old female who presents to the emergency department for intermittent feeling of warmness to her forehead and then will get chills mild headache states this been happening every evening. But then will resolve. Patient denies any cough or congestion and states she has had the mcgee virus vaccine patient denies any fatigue. Patient states just at times she feels hot like a hot flash and then she will get a chill. Patient does have high blood pressure and just took her blood pressure medicine prior to arrival. Patient denies chest pain or shortness of breath. Patient again has no complaints at discharge. States she feels completely fine. Patient does have a scheduled appointment with her PCP in 2 days. Patient will be discharged home. Continue all home medications. Normally healthy diet. Blood pressure log as instructed. Medical Records: Attestation: I reviewed the patient's medical records. Lab Data: Attestation: I reviewed the patient's lab results. Labs: Lab Results 10/13/20 10/13/20 10/13/20 Range/Units 07:35 07:35 07:35 WBC 8.0 (4.0-10.0) 10^3/ uL RBC 4.92 (4.1-5.3) 10^6/u L Hgb 12.7 (11.5-15.3) g/dL Hct 41.6 (37.0-47.0) % MCV 84.6 (81-99) fL MCH 25.8 L (28.0-34.0) pg MCHC 30.5 (30.0-36.0) g/dL RDW 14.1 (12.1-15.1) % Plt Count 246 (130-400) 10^3/c mm MPV 12.7 H (7.4-10.4) fL Neut % (Auto) 68.7 % Lymph % (Auto) 15.3 % Pershing % (Auto) 12.8 % Eos % (Auto) 2.3 % Baso % (Auto) 0.6 % Neut # (Auto) 5.46 (1.8-7.7) 10^3/u L Lymph # (Auto) 1.2 (0.8-4.8) 10^3/u L Pershing # (Auto) 1.0 H (0.2-0.9) 10^3/u L Eos # (Auto) 0.2 (0.0-0.8) 10^3/u L Baso # (Auto) 0.1 (0.0-0.1) 10^3/u L Nucleated RBC % (a uto) 0 % Nucleated RBCs # 0.0 /100WBC Sodium 140 (136-145) mmol/L Potassium 3.8 (3.5-5.1) mmol/L Chloride 102 (98-107) mmol/L Carbon Dioxide 28 (22-29) mmol/L Anion Gap 13.8 (5-19) BUN 10 (8-23) mg/dL Creatinine 0.9 (0.5-0.9) mg/dL GFR Calculation Not Reportable Glucose 101 (65-115) mg/dL Calculated Osmolal ity 289 (285-295) mOsm/k g Calcium 9.0 (8.5-10.5) mg/dL Total Bilirubin 0.5 (0.15-1.2) mg/dL AST 17 (0-32) U/L ALT 10 (0-33) U/L Alkaline Phosphata se 81 (35-105) IU/L Total Protein 7.7 (6.6-8.7) g/dL Albumin 4.0 (3.5-5.2) g/dL Globulin 3.7 (1.3-4.6) g/dL Urine Color Yellow (Yellow) Urine Appearance Clear (CLEAR) Urine pH 5 (5-7) Ur Specific Gravit y 1.015 (1.005-1.030) Urine Protein 1+ H (Negative) Urine Glucose (UA) Norm (Normal) Urine Ketones Negative (Negative) Urine Blood 3+ H (Negative) Urine Nitrate Negative (Negative) Urine Bilirubin Neg (Negative) Urine Urobilinogen Norm (Negative) mg/dL Ur Leukocyte Darleen ase Negative (Negative) Urine RBC 10-15 H (0-2) /hpf Urine WBC None (0-5) /hpf Ur Squamous Epith Cells 5-10 H (0-5) /hpf Ur Transition Epit h Cell 0-4 /hpf Amorphous Sediment Not Reportable Urine Bacteria Trace (NONE) /hpf Hyaline Casts 5-10 H /lpf Discharge Plan Discharge Patient Disposition: Home Clinical Impression: Encounter for medical screening examination, Hypertension Condition: Stable Prescriptions: No Action amlodipine 5 mg tablet 5 mg PO DAILY@0500 RF: 0 metoprolol succinate 100 mg tablet extended release 24 hr 100 mg PO DAILY@1800 RF: 0 potassium chloride 10 mEq tablet extended release 10 meq PO DAILY@0500 RF: 0 simvastatin 20 mg tablet 20 mg PO DAILY@1800 RF: 0 valsartan 160 mg tablet 160 mg PO DAILY@0500 RF: 0 aspirin 81 mg Tablet,Delayed Release (Dr/Ec) 81 mg PO DAILY@0500 RF: 0 levothyroxine [Euthyrox] 88 mcg tablet 88 mcg PO DAILY@0500 RF: 0 pantoprazole 40 mg tablet,delayed release (DR/EC) 40 mg PO DAILY@0500 RF: 0 Pyridium 1 tab PO PRN PRN (Reason: uti) RF: 0 cyanocobalamin (vitamin B-12) 1,000 mcg/mL solution See Rx Instructions .ROUTE .COMPLEX RF: 0 Discharge Orders: Discharge ED (Routine); Ordered 10/13/20 Ordered By: Po Rooney Referrals: Roc Sage DO [Primary Care Provider] - Discharge Diet: Usual diet Discharge Activity: Resume usual activity Patient Instructions: Opioid Safety Activity Restrictions/Additional Instructions: Continue home blood pressure medications. Follow-up with PCP as scheduled in 2 days. Keep and maintain blood pressure log as instructed. Return to the emergency department symptoms fail to improve or worsen. Coding Level of Care Code ED Early Childhood Director for Beka Fwd Exam Comprehensive
[2020-10-13 07:48] VITALS: BP 168/88
[2020-10-13 08:02] LABS: Basophils # 0.1 10^3/uL (0.0-0.1); Basophils % 0.6 %; Eosinophils # 0.2 10^3/uL (0.0-0.8); Eosinophils % 2.3 %; Hematocrit 41.6 % (37.0-47.0); Hemoglobin 12.7 g/dL (11.5-15.3); Lymphocytes # 1.2 10^3/uL (0.8-4.8); Lymphocytes % 15.3 %; Mean Corpuscular HGB Conc 30.5 g/dL (30.0-36.0); Mean Corpuscular Hemoglobin 25.8 pg (28.0-34.0); Mean Corpuscular Volume 84.6 fL (81-99); Mean Platelet Volume 12.7 fL (7.4-10.4); Monocytes % 12.8 %; Neutrophils # 5.46 10^3/uL (1.8-7.7); Neutrophils % 68.7 %; Nucleated Red Blood Cells % 0 %; Platelet Count 246 10^3/cmm (130-400); Red Blood Count 4.92 10^6/uL (4.1-5.3); Red Cell Distribution Width 14.1 % (12.1-15.1)
[2020-10-13 08:11] LABS: Bilirubin Urine Neg (Negative); Glucose Urine UA Norm (Normal); Ketones Urine Negative (Negative); Nitrate Urine Negative (Negative); Protein Urine 1+ (Negative); Specific Gravity, Urine 1.015 (1.005-1.030); Urine Appearance Clear (CLEAR); Urine Color Yellow (Yellow); pH Urine 5 (5-7)
[2020-10-13 08:12] LABS: Add Urine Microscopic? YES; Blood Urine 3+ (Negative); Leukocyte Esterase Urine Negative (Negative); Urobilinogen Urine Norm (Negative)
[2020-10-13 08:21] LABS: Alanine Aminotransferase 10 U/L (0-33); Alkaline Phosphatase 81 IU/L (35-105); Anion Gap 13.8 (5-19); Aspartate Amino Transferase 17 U/L (0-32); Blood Urea Nitrogen 10 mg/dL (8-23); Carbon Dioxide 28 mmol/L (22-29); Chloride 102 mmol/L (98-107); Globulin 3.7 g/dL (1.3-4.6); Glucose 101 mg/dL (65-115); Osmolality Calculated 289 mOsm/kg (285-295); Potassium 3.8 mmol/L (3.5-5.1); Sodium 140 mmol/L (136-145); Total Bilirubin 0.5 mg/dL (0.15-1.2); Total Protein 7.7 g/dL (6.6-8.7)
[2020-10-13 08:22] LABS: Add Urine Culture? No; Bacteria Urine TRACE /hpf; Transitional Epi Cells Urine 0-4 /hpf
[2020-10-13 08:37] VITALS: BP 168/88
== END 2020-10-13 08:38 | disposition home or self-care (01) ==
PROVIDERS: Emergency Provider Emergency Medicine; PCP Electrodiagnostic Medicine
DX: I10 Essential (primary) hypertension (principal); Z79.82 Long term (current) use of aspirin; Z85.42 Personal history of malignant neoplasm of other parts of uterus; Z87.891 Personal history of nicotine dependence
CPT/HCPCS: 80053; 81001; 85025; 99283

== ENCOUNTER 2020-10-18 07:57 | Outpatient (CLI) | payer MEDICARE, SELFPAY ==
--- NOTE | 2020-10-18 08:04 | CT_ITS ---
WS: [id number] CT CHEST TECHNIQUE: Contrast enhanced CT of the chest with coronal and sagittal reformatted images. CLINICAL INFORMATION: LUNG NODULE, COPD COMPARISON: None. DLP: 768.[address] scans at [facility] use at least one of these dose optimization techniques: automat ed exposure control; mA and/or kV adjustment per patient size (includes targeted exams where dose is matched to clinical indication); or iterative reconstruction. FINDINGS: Moderate chronic emphysematous changes. Small pericardial effusion. Subsegmental atelectasis in the r ight middle lobe and left lower lobe. No acute pulmonary infiltrates. Normal caliber thoracic aorta. Proximal main pulmonary arteries are normal. Multiple noncalcified pulmonary nodules in the right upper lobe, right middle lobe, and right lower l obe. Largest measures 8 mm unchanged from previous. No mediastinal or hilar lymphadenopathy. No axillary lymphadenopathy. Adrenal glands are normal. Norm al GE junction. Normal thoracic spine. CT/CT chest w con* [id number] IMPRESSION: 1. Multiple subcentimeter noncalcified nodules more prominent in the right mid dle and right lower lobes are unchanged since April 23, 2020. Recommend 12 m [facility] follow-up. 2. Moderate chronic emphysematous changes. 3. Small pericardial effusion. 4. No mediastinal or hilar lymphadenopathy.
[2020-10-18] MEDS: iodixanol 320 mg/mL 100mL Btl IV (08:55)
== END 2020-10-18 07:58 | disposition home or self-care (01) ==
PROVIDERS: PCP Electrodiagnostic Medicine; Visit Provider Electrodiagnostic Medicine
DX: R91.1 Solitary pulmonary nodule (principal); J44.9 Chronic obstructive pulmonary disease, unspecified; I31.3 Pericardial effusion (noninflammatory); R91.8 Other nonspecific abnormal finding of lung field
CPT/HCPCS: 71260; Q9967

== ENCOUNTER 2021-01-02 08:40 | Outpatient (CLI) | payer MEDICARE, SELFPAY ==
--- NOTE | 2021-01-02 08:53 | MM_ITS ---
WS: [id number] BILATERAL SCREENING DIGITAL MAMMOGRAM WITH CAD HISTORY: SCREENING COMPARISON: 12/02/2019 and 10/26/2018 Bilateral CC and MLO views submitted. Computer aided detection analyzed. Breast composition: There are scattered areas of fibroglandular density. No suspicious masses, microc alcifications or architectural distortion. Benign calcifications within each breast. Chronic retracti on of the nipples. MM/[place] [id number] IMPRESSION: BI-RADS: 2-Benign FOLLOW UP: 1 Year Follow-up
== END 2021-01-02 08:41 | disposition home or self-care (01) ==
LOC: RADSHAW 08:46
PROVIDERS: PCP Electrodiagnostic Medicine; Visit Provider Electrodiagnostic Medicine
DX: Z12.31 Encounter for screening mammogram for malignant neoplasm of breast (principal)
CPT/HCPCS: 77067

== ENCOUNTER → 2021-01-12 14:47 | Outpatient (BNVA) | payer MEDICARE, SELFPAY | PROVIDERS: PCP Electrodiagnostic Medicine; Visit Provider Registered Nurse Neonatal Intensive Care | DX: Z20.822 Contact with and (suspected) exposure to COVID-19 (principal) | CPT/HCPCS: 87635 ==

== ENCOUNTER 2021-02-01 13:18 | Outpatient (CLI) | payer MEDICARE, SELFPAY ==
--- NOTE | 2021-02-01 13:37 | MR_ITS ---
WS: [id number] MRI CERVICAL SPINE NONCONTRAST HISTORY: NECK PAIN/TINGLING COMPARISON: 09/03/2010 Technique: Multiplanar, multisequence noncontrast imaging of the cervical spine. Mild increase in the cervical lordosis. C5 retrolisthesis by 2 mm is similar to the prior study. Mild degenerative disc disease throughout the cervical spine, moderate at C5-6. There is a small amount o f marrow edema involving the facets on the LEFT at C4 and C5. Signal within the cervical cord is normal. Visualized posterior fossa is unremarkable. Craniocervical junction, C1 and C2 relationship, odontoid process and soft tissues are normal. C2-C3: Normal. C3-C4: Mild osteophytic ridging with a central disc protrusion. No stenosis. C4-C5: Mild osteophytic ridging with a central disc protrusion and mild facet arthritis. Greater infl ammatory changes involving the LEFT facet joint. Increased T2 signal in the soft tissues and facet. M oderate to severe bilateral foraminal stenosis. Mild central stenosis. C5-C6: Diffuse annular disc bulging disc and osteophyte formation contributing to moderate central an d moderate to severe bilateral foraminal stenosis. Mild facet joint synovitis on the LEFT. C6-C7: Diffuse osteophytic ridging and disc bulging. Mild central with moderate bilateral foraminal s tenosis. C7-T1: Normal. Paraspinal soft tissue are normal. MR/MR cervical spin wo con* [id number] IMPRESSION: 1. Moderate central with moderate to severe bilateral foraminal stenosis at C5 -6 due to osteophyte and disc disease. 2. Mild central with moderate to severe bilateral foraminal stenosis at C4-5. 3. Mild central with moderate bilateral foraminal stenosis at C6-7 4. Synovitis at the facet joint on the LEFT at C4-5. 5. As compared to the prior examination there has been a very mild progression of osteophytosis and disc disease from C4 to C7.
== END 2021-02-01 13:19 | disposition home or self-care (01) ==
LOC: RADWPI 13:26
PROVIDERS: PCP Electrodiagnostic Medicine; Visit Provider Electrodiagnostic Medicine
DX: R20.2 Paresthesia of skin (principal); M48.02 Spinal stenosis, cervical region; M25.78 Osteophyte, vertebrae; M50.322 Other cervical disc degeneration at C5-C6 level; M65.88 Other synovitis and tenosynovitis, other site
CPT/HCPCS: 72141

== ENCOUNTER 2021-08-23 08:05 | Emergency (ER) | payer MEDICARE, SELFPAY ==
[2021-08-23 08:12] VITALS: BP 177/82; PULSE 94; TEMP 36.8; O2SAT 94; BMI 29.5
--- NOTE | 2021-08-23 08:29 | XR_ITS ---
WS: [id number] Exam: XR chest 1V portable [id number] Date/Time of Exam: 08/23/2021 8:41 AM Reason For Exam: tachycardia Comparison 06/27/2020. The lungs are fully expanded and clear. Heart size is top limits normal. The mediastinum and osseous thorax are unremarkable. No pleural effusions. XR/XR chest 1V portable [id number] IMPRESSION: 1. No acute cardiopulmonary finding.
--- NOTE | 2021-08-23 08:29 | ECG_ITS ---
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 Measurements Intervals [place] Rate: 91 P: 62 IL: 160 QRS: 33 QRSD: 93 T: 44 QT: 360 QTc: 445 Interpretive Statements SINUS RHYTHM Compared to ECG 08/20/2020 07:17:55 Sinus bradycardia no longer present Electronically Signed On 08-23-2021 13:39:10 CDT by Luis Hinojosa M.D. [id number]
--- NOTE | 2021-08-23 08:30 | W.ED.ARRPALP ---
Documented by User: JACOB Pradhan 08/23/21 12:10 HPI - Arrhythmia/Palpitations General: Chief Complaint: Arrhythmia/Palpitations Stated Complaint: pt states she has Irregular heart beat Time Seen by Provider: 08/23/21 08:22 Source: patient and EMS Mode of arrival: EMS Limitations: no limitations History of Present Illness: Patient is an 80-year-old female who presents to ED today via EMS for concerns of an episode of racing heart rate . Patient states she is an early riser and awoke around 2 AM this morning. She states she ate coffee and breakfast as normal and laid down in her recliner around 3 AM to watch television. She states she fell back asleep and woke up to the sensation like her heart was racing. She states she checked her blood pressure and pulse and states her BP was 170s systolic and pulse was 115ish. Patient did not have any chest pain. She did feel a little short of breath and nervous. Patient has chronic hypertension. She states she did take her morning medications as directed. Patient states she called an ambulance. Reports states by the time they arrived heart rate was down to 104. Upon arrival to the ED and during my examination heart rate is anywhere in the 70s-90s. She no longer has the sensation that her heart is racing. She does not feel short of breath or nervous currently. Again she never had chest pain. She never described palpitation-like sensations. Patient states she has no history of this however looking at very old ED records 2017/2018 looks like she was here multiple times for similar episodes. Patient states she used to see Dr. Galarza for cardiology but states they kept doing the same ole' thing so she discontinued follow-up. complaint: rapid heart beat and heart racing Onset (ago): hour(s) Duration: now resolved Context: occurred during rest Associated symptoms: Deny nausea, pre-syncope, syncope or vomiting Review of Systems Const: Denies: fever(s), chills, body aches, fatigue or malaise Card: Reports: irregular heart rhythm ( racing ); Denies: chest pain, palpitations, edema, swelling of feet/ankles, lightheadedness, syncope, pre-syncope, dyspnea on exertion, orthopnea, leg pain with exertion or acrocyanosis Resp: Reports: dyspnea (resolved now); Denies: wheezing, pain on inspiration or chest congestion GI: Denies: abdominal pain, nausea, vomiting or diarrhea : Denies: flank pain, dysuria or hematuria Musc: Denies: neck pain, back pain, extremity pain or joint pain Skin/Breast: Denies: rash Neuro: Denies: headache(s) or dizziness PFSH ED PFSH: Medical History Recurrent UTI Urinary hesitancy Uterine cancer Surgical History H/O esophagogastroduodenoscopy (08/20/20) Gastritis H/O tubal ligation H/O: hysterectomy History of colonoscopy with polypectomy (08/20/20) Diverticulosis Family History Mother , IN HER 80'S Diabetes Father , IN HIS 80'S Hypertension Social History Alcohol intake: never Marital status: / Current occupational status: retired Current occupation: Retired History of recent travel: No Physical Exam Const: COMMON NORMALS: no acute distress, patient oriented x3, no limitations, alert and well nourished ORIENTATION/CONSCIOUSNESS: Yes awake, Yes oriented to person, Yes oriented to place and Yes oriented to time HENMT: COMMON NORMALS: normocephalic and atraumatic HEAD & SCALP: normal to inspection, normocephalic and atraumatic Eye: GENERAL EYE: appearance normal, both eyes and all related structures Neck/C-Spine: COMMON NORMALS: full ROM, no lymphadenopathy, supple, no meningeal signs and Thyroid normal THYROID: Thyroid normal Chest: COMMONS NORMALS: normal inspection of the chest Resp: COMMON NORMALS: normal respiratory effort and clear to auscultation bilaterally AUSCULTATION: clear to auscultation bilaterally Cardio: COMMON NORMALS: regular rate and regular rhythm RATE: regular rate RHYTHM: regular rhythm GI: COMMON NORMALS: Normal to inspection, nondistended, normoactive bowel sounds present, Soft to palpation, non-tender, No hepatosplenomegaly present and no masses PALPATION: Yes Soft to palpation and Yes No hepatosplenomegaly present Extremity: COMMON NORMALS: normal to inspection, capillary refill normal, no clubbing, cyanosis or edema, no calf tenderness and no pedal edema Neuro: LUIS DANIEL COMA SCALE: document GCS findings [place] coma scale eye opening: Spontaneous [place] coma scale verbal response: Orientated Luis Daniel coma scale motor response: Obey commands [place] coma scale total score: 15 COMMON NORMALS: patient oriented x3, moves all extremities, no focal motor deficits and no sensory deficits noted SENSORIUM/ORIENTATION: Yes alert, Yes oriented to person, Yes oriented to place and Yes oriented to time MENINGEAL SIGNS: Yes no meningeal signs Skin: COMMON NORMALS: no rashes or lesions noted GENERAL SKIN EXAM: no rashes or lesions noted Course Vital Signs: Vital signs: Vital Signs Temperature 98.2 F 08/23/21 08:12 Pulse Rate 99 08/23/21 12:05 Respiratory Rate 22 H 08/23/21 12:05 Blood Pressure 154/89 08/23/21 12:05 Pulse Oximetry 93 08/23/21 12:05 MDM - Arrhythmia/Palpitations Medical Decision Making Patient has remained completely asymptomatic during her stay in the ED. She initially arrived hypertensive however this has resolved without intervention. Last blood pressure upon my re-examination/discharge was 140s/70s. Patient has not had any further episodes of tachycardia or arrhythmias while on the monitor here. Patient never had any chest pain nor did she have any chest pain during her ED stay. Her initial EKG and repeat EKG showed no arrhythmia or ischemic changes. Blood work overall is fairly unremarkable. Her baseline troponin is 22 with a nonsignificant delta of 9.8. Discussed with Dr. Rene who feels comfortable releasing patient at this time. She was given the option to stay for a 6-hour troponin however she wants to go home. I did recommend she follow-up with cardiology and she does agree to this but states she would like to see her PCP Dr. Sage first get the referral from him. I think this is acceptable. Strict return to ED precautions given regarding onset of chest pain, shortness of breath, difficulty breathing, any further episodes of racing heart rate or palpitations, dizziness/lightheadedness, or any other concerns she may have. Patient voiced/verbalized understanding of these instructions. Lab Data : 08/23/21 08:40 08/23/21 08:40 Radiology Impressions Chest X-Ray 08/23/21 08:29 IMPRESSION: 1. No acute cardiopulmonary finding. Laboratory Results WBC 6.8 10^3/uL (4.0-10.0) 08/23/21 08:40 RBC 4.96 10^6/uL (4.1-5.3) 08/23/21 08:40 Hgb 12.6 g/dL (11.5-15.3) 08/23/21 08:40 Hct 40.6 % (37.0-47.0) 08/23/21 08:40 MCV 81.9 fl (81-99) 08/23/21 08:40 MCH 25.4 pg (28.0-34.0) L 08/23/21 08:40 MCHC 31.0 g/dL (30.0-36.0) 08/23/21 08:40 RDW 14.7 % (12.1-15.1) 08/23/21 08:40 Plt Count 226 10^3/cmm (130-400) 08/23/21 08:40 MPV 12.4 fL (7.4-10.4) H 08/23/21 08:40 Neut % (Auto) 68.9 % 08/23/21 08:40 Lymph % (Auto) 15.8 % 08/23/21 08:40 [place] % (Auto) 9.9 % 08/23/21 08:40 Eos % (Auto) 4.4 % 08/23/21 08:40 Baso % (Auto) 0.9 % 08/23/21 08:40 Neut # (Auto) 4.66 10^3/uL (1.8-7.7) 08/23/21 08:40 Lymph # (Auto) 1.1 10^3/uL (0.8-4.8) 08/23/21 08:40 [place] # (Auto) 0.7 10^3/uL (0.2-0.9) 08/23/21 08:40 Eos # (Auto) 0.3 10^3/uL (0.0-0.8) 08/23/21 08:40 Baso # (Auto) 0.1 10^3/uL (0.0-0.1) 08/23/21 08:40 Nucleated RBC % (auto) 0 % 08/23/21 08:40 Nucleated RBCs # 0.0 /100WBC 08/23/21 08:40 Sodium 138 mmol/L (136-145) 08/23/21 08:40 Potassium 5.1 mmol/L (3.5-5.1) 08/23/21 08:40 Chloride 103 mmol/L (98-107) 08/23/21 08:40 Carbon Dioxide 23 mmol/L (22-29) 08/23/21 08:40 Anion Gap 17.1 (5-19) 08/23/21 08:40 BUN 15 mg/dL (8-23) 08/23/21 08:40 Creatinine 0.9 mg/dL (0.5-0.9) 08/23/21 08:40 GFR Calculation Not Reportable 08/23/21 08:40 Glucose 121 mg/dL (65-115) H 08/23/21 08:40 Calculated Osmolality 288 mOsm/kg (285-295) 08/23/21 08:40 Calcium 10.0 mg/dL (8.5-10.5) 08/23/21 08:40 Total Bilirubin 0.3 mg/dL (0.15-1.2) 08/23/21 08:40 AST 22 U/L (0-32) 08/23/21 08:40 ALT 11 U/L (0-33) 08/23/21 08:40 Alkaline Phosphatase 76 IU/L (35-105) 08/23/21 08:40 Troponin T Baseline 22 ng/L (0-10) H 08/23/21 08:40 Troponin T 120 Minute 31.85 ng/L (0-10) H 08/23/21 11:07 Delta Troponin T 9.85 ABS# (0-10) 08/23/21 11:07 Total Protein 7.0 g/dL (6.6-8.7) 08/23/21 08:40 Albumin 4.2 g/dL (3.5-5.2) 08/23/21 08:40 Globulin 2.8 g/dL (1.3-4.6) 08/23/21 08:40 TSH 2.28 uIU/mL (0.27-4.20) 08/23/21 08:40 Discharge Plan Discharge Patient Disposition: Home Clinical Impression: Paroxysmal tachycardia Condition: Stable Prescriptions: No Action amlodipine 5 mg tablet 5 mg PO DAILY@0500 0RF metoprolol succinate 100 mg tablet extended release 24 hr 100 mg PO DAILY@1800 0RF potassium chloride 10 mEq tablet extended release 10 meq PO DAILY@0500 0RF simvastatin 20 mg tablet 20 mg PO DAILY@1800 0RF valsartan 160 mg tablet 160 mg PO DAILY@0500 0RF aspirin 81 mg Tablet,Delayed Release (Dr/Ec) 81 mg PO QPM 0RF levothyroxine [Euthyrox] 88 mcg tablet 88 mcg PO DAILY@0500 0RF pantoprazole 40 mg tablet,delayed release (DR/EC) 40 mg PO DAILY@0500 0RF Pyridium 1 tab PO PRN PRN (Reason: uti) 0RF cyanocobalamin (vitamin B-12) 1,000 mcg/mL solution 1,000 mcg IM Q30D 0RF meloxicam 15 mg tablet 15 mg PO QPM 0RF Vision Formula (with lutein) 1,000 unit-200 mg-60 unit-2 mg Tablet 1 tab PO QAM 0RF Rx Instructions: administer after a meal cholecalciferol (vitamin D3) 1,250 mcg (50,000 unit) capsule 50,000 unit PO .TWICE A WEEK 0RF Rx Instructions: on mon and Probiotic 1 cap PO QAM 0RF Discharge Orders: Discharge ED (Routine); Ordered 08/23/21 Ordered By: Sharifa Bustamante Referrals: Roc Sage DO [Primary Care Provider] - Coding Level of Care Code ED Bridge Painter Helper for Chg Fwd Exam Comprehensive Documented by User: Aly Rene MD 08/27/21 22:39 HPI - Arrhythmia/Palpitations General: Chief Complaint: Arrhythmia/Palpitations Stated Complaint: pt states she has Irregular heart beat Time Seen by Provider: 08/23/21 08:22 [facility] ED PFSH: Medical History Recurrent UTI Urinary hesitancy Uterine cancer Surgical History H/O esophagogastroduodenoscopy (08/20/20) Gastritis H/O tubal ligation H/O: hysterectomy History of colonoscopy with polypectomy (08/20/20) Diverticulosis Family History Mother , IN HER 80'S Diabetes Father , IN HIS 80'S Hypertension Social History Alcohol intake: never Marital status: / Current occupational status: retired Current occupation: Retired History of recent travel: No Physical Exam Neuro: LUIS DANIEL COMA SCALE: document GCS findings [place] coma scale total score: 15 Course Vital Signs: Vital signs: Vital Signs Temperature 98.2 F 08/23/21 08:12 Pulse Rate 99 08/23/21 12:05 Respiratory Rate 22 H 08/23/21 12:05 Blood Pressure 154/89 08/23/21 12:05 Pulse Oximetry 93 08/23/21 12:05 MDM - Arrhythmia/Palpitations Medical Decision Making Patient has remained completely asymptomatic during her stay in the ED. She initially arrived hypertensive however this has resolved without intervention. Last blood pressure upon my re-examination/discharge was 140s/70s. Patient has not had any further episodes of tachycardia or arrhythmias while on the monitor here. Patient never had any chest pain nor did she have any chest pain during her ED stay. Her initial EKG and repeat EKG showed no arrhythmia or ischemic changes. Blood work overall is fairly unremarkable. Her baseline troponin is 22 with a nonsignificant delta of 9.8. Discussed with Dr. Rene who feels comfortable releasing patient at this time. She was given the option to stay for a 6-hour troponin however she wants to go home. I did recommend she follow-up with cardiology and she does agree to this but states she would like to see her PCP Dr. Sage first get the referral from him. I think this is acceptable. Strict return to ED precautions given regarding onset of chest pain, shortness of breath, difficulty breathing, any further episodes of racing heart rate or palpitations, dizziness/lightheadedness, or any other concerns she may have. Patient voiced/verbalized understanding of these instructions. I have reviewed documentation by JACOB Pradhan. I discussed this case with her. I have reviewed labs, EKG, imaging. >6 hrs of symptoms. Patient comfortable with further outpatient eval. Aly Rene MD Emergency Medicine Lab Data : 08/23/21 08:40 08/23/21 08:40 Radiology Impressions Chest X-Ray 08/23/21 08:29 IMPRESSION: 1. No acute cardiopulmonary finding. Laboratory Results WBC 6.8 10^3/uL (4.0-10.0) 08/23/21 08:40 RBC 4.96 10^6/uL (4.1-5.3) 08/23/21 08:40 Hgb 12.6 g/dL (11.5-15.3) 08/23/21 08:40 Hct 40.6 % (37.0-47.0) 08/23/21 08:40 MCV 81.9 fl (81-99) 08/23/21 08:40 MCH 25.4 pg (28.0-34.0) L 08/23/21 08:40 MCHC 31.0 g/dL (30.0-36.0) 08/23/21 08:40 RDW 14.7 % (12.1-15.1) 08/23/21 08:40 Plt Count 226 10^3/cmm (130-400) 08/23/21 08:40 MPV 12.4 fL (7.4-10.4) H 08/23/21 08:40 Neut % (Auto) 68.9 % 08/23/21 08:40 Lymph % (Auto) 15.8 % 08/23/21 08:40 [place] % (Auto) 9.9 % 08/23/21 08:40 Eos % (Auto) 4.4 % 08/23/21 08:40 Baso % (Auto) 0.9 % 08/23/21 08:40 Neut # (Auto) 4.66 10^3/uL (1.8-7.7) 08/23/21 08:40 Lymph # (Auto) 1.1 10^3/uL (0.8-4.8) 08/23/21 08:40 [place] # (Auto) 0.7 10^3/uL (0.2-0.9) 08/23/21 08:40 Eos # (Auto) 0.3 10^3/uL (0.0-0.8) 08/23/21 08:40 Baso # (Auto) 0.1 10^3/uL (0.0-0.1) 08/23/21 08:40 Nucleated RBC % (auto) 0 % 08/23/21 08:40 Nucleated RBCs # 0.0 /100WBC 08/23/21 08:40 Sodium 138 mmol/L (136-145) 08/23/21 08:40 Potassium 5.1 mmol/L (3.5-5.1) 08/23/21 08:40 Chloride 103 mmol/L (98-107) 08/23/21 08:40 Carbon Dioxide 23 mmol/L (22-29) 08/23/21 08:40 Anion Gap 17.1 (5-19) 08/23/21 08:40 BUN 15 mg/dL (8-23) 08/23/21 08:40 Creatinine 0.9 mg/dL (0.5-0.9) 08/23/21 08:40 GFR Calculation Not Reportable 08/23/21 08:40 Glucose 121 mg/dL (65-115) H 08/23/21 08:40 Calculated Osmolality 288 mOsm/kg (285-295) 08/23/21 08:40 Calcium 10.0 mg/dL (8.5-10.5) 08/23/21 08:40 Total Bilirubin 0.3 mg/dL (0.15-1.2) 08/23/21 08:40 AST 22 U/L (0-32) 08/23/21 08:40 ALT 11 U/L (0-33) 08/23/21 08:40 Alkaline Phosphatase 76 IU/L (35-105) 08/23/21 08:40 Troponin T Baseline 22 ng/L (0-10) H 08/23/21 08:40 Troponin T 120 Minute 31.85 ng/L (0-10) H 08/23/21 11:07 Delta Troponin T 9.85 ABS# (0-10) 08/23/21 11:07 Total Protein 7.0 g/dL (6.6-8.7) 08/23/21 08:40 Albumin 4.2 g/dL (3.5-5.2) 08/23/21 08:40 Globulin 2.8 g/dL (1.3-4.6) 08/23/21 08:40 TSH 2.28 uIU/mL (0.27-4.20) 08/23/21 08:40 Discharge Plan Discharge Patient Disposition: Home Clinical Impression: Paroxysmal tachycardia Condition: Stable Prescriptions: No Action amlodipine 5 mg tablet 5 mg PO DAILY@0500 0RF metoprolol succinate 100 mg tablet extended release 24 hr 100 mg PO DAILY@1800 0RF potassium chloride 10 mEq tablet extended release 10 meq PO DAILY@0500 0RF simvastatin 20 mg tablet 20 mg PO DAILY@1800 0RF valsartan 160 mg tablet 160 mg PO DAILY@0500 0RF aspirin 81 mg Tablet,Delayed Release (Dr/Ec) 81 mg PO QPM 0RF levothyroxine [Euthyrox] 88 mcg tablet 88 mcg PO DAILY@0500 0RF pantoprazole 40 mg tablet,delayed release (DR/EC) 40 mg PO DAILY@0500 0RF Pyridium 1 tab PO PRN PRN (Reason: uti) 0RF cyanocobalamin (vitamin B-12) 1,000 mcg/mL solution 1,000 mcg IM Q30D 0RF meloxicam 15 mg tablet 15 mg PO QPM 0RF Vision Formula (with lutein) 1,000 unit-200 mg-60 unit-2 mg Tablet 1 tab PO QAM 0RF Rx Instructions: administer after a meal cholecalciferol (vitamin D3) 1,250 mcg (50,000 unit) capsule 50,000 unit PO .TWICE A WEEK 0RF Rx Instructions: on mon and thurs Probiotic 1 cap PO QAM 0RF Discharge Orders: Discharge ED (Routine); Ordered 08/23/21 Ordered By: Sharifa Bustamante Referrals: Roc Sage DO [Primary Care Provider] - Coding Level of Care Code ED Bridge Painter Helper for Chg Fwd Exam Comprehensive
[2021-08-23 08:49] LABS: Basophils # 0.1 10^3/uL (0.0-0.1); Basophils % 0.9 %; Eosinophils # 0.3 10^3/uL (0.0-0.8); Eosinophils % 4.4 %; Hematocrit 40.6 % (37.0-47.0); Hemoglobin 12.6 g/dL (11.5-15.3); Lymphocytes # 1.1 10^3/uL (0.8-4.8); Lymphocytes % 15.8 %; Mean Corpuscular Hemoglobin 25.4 pg (28.0-34.0); Mean Corpuscular Volume 81.9 fl (81-99); Mean Platelet Volume 12.4 fL (7.4-10.4); Monocytes # 0.7 10^3/uL (0.2-0.9); Monocytes % 9.9 %; Neutrophils # 4.66 10^3/uL (1.8-7.7); Neutrophils % 68.9 %; Nucleated Red Blood Cells % 0 %; Platelet Count 226 10^3/cmm (130-400); Red Blood Count 4.96 10^6/uL (4.1-5.3); Red Cell Distribution Width 14.7 % (12.1-15.1); White Blood Count 6.8 10^3/uL (4.0-10.0)
--- NOTE | 2021-08-23 09:02 | PC.PHAR ---
pt states she takes care of her own medications-pt states she took some meds this am but is unsure which 4 tabs she took this am
[2021-08-23 09:19] LABS: Troponin(5th) Baseline 22 ng/L (0-10)
[2021-08-23 09:26] LABS: Albumin Level 4.2 g/dL (3.5-5.2); Alkaline Phosphatase 76 IU/L (35-105); Blood Urea Nitrogen 15 mg/dL (8-23); Carbon Dioxide 23 mmol/L (22-29); Chloride 103 mmol/L (98-107); Globulin 2.8 g/dL (1.3-4.6); Glucose 121 mg/dL (65-115); Osmolality Calculated 288 mOsm/kg (285-295); Sodium 138 mmol/L (136-145); Thyroid Stimulating Hormone 2.28 uIU/mL (0.27-4.20); Total Bilirubin 0.3 mg/dL (0.15-1.2)
[2021-08-23 09:27] LABS: Alanine Aminotransferase 11 U/L (0-33); Anion Gap 17.1 (5-19); Aspartate Amino Transferase 22 U/L (0-32); Potassium 5.1 mmol/L (3.5-5.1)
[2021-08-23 09:37] VITALS: PULSE 82; RESP 18; O2SAT 93
[2021-08-23 09:42] VITALS: BP 168/89
--- NOTE | 2021-08-23 10:29 | ECG_ITS ---
[facility] Test Date: 2021-08-23 Pat Name: Silvia Garcia Department: Room: Gender: Female Shoemaker Custom: : 1940 Requested By: Sharifa Bustamante Order Number: [id number] Shyanne MD: Luis Hinojosa M.D. Measurements Intervals [place] Rate: 83 P: 57 [place]: 158 QRS: 21 QRSD: 97 T: 45 QT: 380 QTc: 448 Interpretive Statements SINUS RHYTHM Compared to ECG 08/23/2021 08:39:57 No significant changes Electronically Signed On 08-23-2021 13:59:22 CDT by Luis Hinojosa M.D. [id number]
[2021-08-23 11:32] LABS: Troponin 5 2HR 31.85 ng/L (0-10)
[2021-08-23 11:39] LABS: Troponin 5 2HR Delta 9.85 ABS# (0-10)
[2021-08-23 11:41] VITALS: BP 146/76; PULSE 82; RESP 18; O2SAT 93
[2021-08-23 12:05] VITALS: BP 154/89; PULSE 99; RESP 22; O2SAT 93
== END 2021-08-23 12:06 | disposition home or self-care (01) ==
PROVIDERS: Emergency Provider Physician Assistant; PCP Electrodiagnostic Medicine
DX: I47.9 Paroxysmal tachycardia, unspecified (principal); Z79.82 Long term (current) use of aspirin; I10 Essential (primary) hypertension
CPT/HCPCS: 71045; 80053; 84443; 84484; 85025; 93005; 99283

== ENCOUNTER → 2021-09-23 10:36 | Outpatient (BNVA) | payer MEDICARE, SELFPAY | PROVIDERS: PCP Electrodiagnostic Medicine; Visit Provider Internal Medicine | DX: R00.1 Bradycardia, unspecified (principal) | CPT/HCPCS: 93246 ==

== ENCOUNTER → 2021-10-29 13:19 | Outpatient (BNVA) | payer MEDICARE, SELFPAY | PROVIDERS: PCP Electrodiagnostic Medicine; Visit Provider Internal Medicine Cardiovascular Disease | DX: I48.91 Unspecified atrial fibrillation (principal); I10 Essential (primary) hypertension; E78.5 Hyperlipidemia, unspecified; K21.9 Gastro-esophageal reflux disease without esophagitis; Z87.891 Personal history of nicotine dependence | CPT/HCPCS: 99204 ==

== ENCOUNTER 2021-11-21 12:32 | Outpatient (CLI) | payer MEDICARE, SELFPAY ==
--- NOTE | 2021-11-21 13:00 | USCV_ITS ---
Silvia Garcia Age: 81 Gender: F : 1940 Exam Date: 11/21/2021 13:13 Ordering Phys: Maria M Mak MD ([email or web address]) Technologist: ERIC [place] [facility] [place]: BRADY[place]ARDIA BP: 128 / 80 HR: 45 Rhythm: Sinus Technical Quality: Adequate MEASUREMENTS (Male / Female) Normal Values 2D ECHO LV Diastolic Diameter PLAX 4.6 cm 4.2 - 5.9 / 3.9 - 5.3 cm LV Systolic Diameter PLAX 2.5 cm IVS Diastolic Thickness 1.2 cm 0.6 - 1.0 / 0.6 - 0.9 cm IVS Systolic Thickness 1.9 cm LVPW Diastolic Thickness 1.2 cm 0.6 - 1.0 / 0.6 - 0.9 cm LVPW Systolic Thickness 1.8 cm LVOT Diameter 2.0 cm LV Ejection Fraction 2D Teich 76.2 % LV Ejection Fraction MOD 2C 73.0 % LV Ejection Fraction 2C AL 72.9 % LA Diameter 4.0 cm LA Width 2.5 cm LA Height 4.6 cm RA Width 3.1 cm RA Height 5.0 cm Aorta at Sinotubular Diameter 2.5 cm IVC Diameter 1.7 cm M-MODE Aortic Annulus Diameter 2.4 cm LA Ao Ratio MM 1.6 MV E Point Septal Separation 0.3 cm DOPPLER AV Peak Velocity 182.7 cm/s LVOT Peak Velocity 132.0 cm/s AV Area Cont Eq vti 2.0 cm squared AV Area Cont Eq pk 2.3 cm squared MV Peak Velocity 132.0 cm/s MV Area PHT 2.2 cm squared Mitral E to A Ratio 1.1 MV E' Velocity 70.5 cm/s Mitral E to MV E' Ratio 16.1 Mitral E to LV E' Lateral Ratio 16.6 Mitral E to LV E' Septal Ratio 15.7 TR Peak Velocity 164.9 cm/s TR Peak Gradient 10.9 mmHg TR Mean Velocity 124.4 cm/s TR Mean Gradient 6.6 mmHg TR Velocity Time Integral 47.2 cm TV Peak E Velocity 43.0 cm/s Right Atrial Pressure 3.0 mmHg Pulmonary Artery Systolic Pressu 13.9 mmHg PV Peak Velocity 105.0 cm/s RV Acceleration Time 0.1 s RV Ejection Time 0.3 s RV AcT/ET 0.3 FINDINGS Left Ventricle Normal left ventricular size, systolic function and wall thickness, with no regional wall motion abnormalities. Grade II diastolic dysfunction, moderately elevated filling pressures. Right Ventricle Normal right ventricular size and systolic function. Normal right ventricular systolic pressure. Right Atrium Normal right atrial size. Left Atrium Mildly increased left atrial size. Mitral Valve Moderate mitral annular calcification. No mitral valve stenosis. Mild-moderate mitral valve regurgitation. Aortic Valve Mildly thickened trileaflet aortic valve. No aortic valve stenosis. No aortic valve regurgitation. Tricuspid Valve Structurally normal tricuspid valve. No tricuspid valve stenosis. Trace tricuspid valve regurgitation. Pulmonic Valve Structurally normal pulmonic valve. No pulmonary valve stenosis. Trace pulmonary valve regurgitation. Pericardium No pericardial effusion. Aorta Normal size aortic root and proximal ascending aorta. IVC Normal IVC dimension with >50% respiratory change of the inferior vena cava. CONCLUSIONS 1. Normal left ventricular size, systolic function and wall thickness, with no regional wall motion abnormalities. Grade II diastolic dysfunction, moderately elevated filling pressures. 2. Mild-moderate mitral valve regurgitation. 3. When compared to previous study dated 06/22/2018, mitral regurgitation seems to have worsened. Maria M Mak MD (Electronically Signed) Final Date: 26 November 2021 09:00 S
== END 2021-11-21 12:33 | disposition home or self-care (01) ==
LOC: RAD 12:35
PROVIDERS: PCP Electrodiagnostic Medicine; Visit Provider Internal Medicine Cardiovascular Disease
DX: I34.0 Nonrheumatic mitral (valve) insufficiency (principal); R00.1 Bradycardia, unspecified
CPT/HCPCS: 93306

== ENCOUNTER → 2022-02-25 14:05 | Outpatient (BNVA) | payer MEDICARE, SELFPAY | PROVIDERS: PCP Electrodiagnostic Medicine; Visit Provider Internal Medicine Cardiovascular Disease | DX: R00.1 Bradycardia, unspecified (principal); I48.91 Unspecified atrial fibrillation; I10 Essential (primary) hypertension; E78.5 Hyperlipidemia, unspecified; K21.9 Gastro-esophageal reflux disease without esophagitis; Z87.891 Personal history of nicotine dependence | CPT/HCPCS: 99214 ==

== ENCOUNTER 2022-03-03 17:41 | Emergency (ER) | payer MEDICARE, SELFPAY ==
[2022-03-03] VITALS (8 sets, daily range): BP systolic 154–231; BP diastolic 60–98; PULSE 53–66; RESP 16–18; TEMP 36.6; O2SAT 93–95; BMI 29.2
--- NOTE | 2022-03-03 18:29 | ECG_ITS ---
[facility] Test Date: 2022-03-03 Pat Name: Silvia Garcia Department: Room: Gender: Female Social Service Technician: : 1940 Requested By: Aly Rene Order Number: [id number] Shyanne MD: Luis Hinojosa M.D. Measurements Intervals [place] Rate: 49 P: 73 [place]: 173 QRS: -4 QRSD: 97 T: 74 QT: 463 QTc: 420 Interpretive Statements SINUS BRADYCARDIA Compared to ECG 08/23/2021 10:27:31 Sinus rhythm no longer present Electronically Signed On 03-03-2022 21:27:58 CDT by Luis Hinojosa M.D. [id number]
--- NOTE | 2022-03-03 18:29 | XRR_ITS ---
PROCEDURE INFORMATION: Exam: XR Chest Exam date and time: 03/03/2022 8:18 PM Age: 81 years old Clinical indication: Shortness of breath; Additional info: SOB TECHNIQUE: Imaging protocol: Radiologic exam of the chest. Views: 1 view. COMPARISON: CR XR chest 1V portable [id number] 08/23/2021 8:47 AM FINDINGS: Lungs: Unremarkable. No consolidation. Pleural spaces: Unremarkable. No pleural effusion. No pneumothorax. Heart/Mediastinum: Cardiomegaly. Bones/joints: Unremarkable. XR/XR chest 1V portable [id number] IMPRESSION: 1. Negative for infiltrate. 2. Cardiomegaly.
[2022-03-03 19:44] LABS: Basophils % 0.4 %; Eosinophils # 0.5 10^3/uL (0.0-0.8); Eosinophils % 5.3 %; Hematocrit 40.3 % (37.0-47.0); Hemoglobin 12.2 g/dL (11.5-15.3); Lymphocytes # 1.5 10^3/uL (0.8-4.8); Lymphocytes % 16.2 %; Mean Corpuscular HGB Conc 30.3 g/dL (30.0-36.0); Mean Corpuscular Volume 85.7 fl (81-99); Mean Platelet Volume 12.8 fL (7.4-10.4); Monocytes # 0.7 10^3/uL (0.2-0.9); Monocytes % 8.1 %; Neutrophils # 6.32 10^3/uL (1.8-7.7); Neutrophils % 69.8 %; Nucleated Red Blood Cells % 0 %; Platelet Count 209 10^3/cmm (130-400); Red Cell Distribution Width 14.9 % (12.1-15.1); White Blood Count 9.1 10^3/uL (4.0-10.0)
[2022-03-03 20:03] LABS: Alanine Aminotransferase 9 U/L (0-33); Albumin Level 4.1 g/dL (3.5-5.2); Alkaline Phosphatase 68 U/L (35-105); Anion Gap 13.8 (5-19); Aspartate Amino Transferase 14 U/L (0-32); Blood Urea Nitrogen 14 mg/dL (8-23); Calcium 9.3 mg/dL (8.5-10.5); Carbon Dioxide 27 mmol/L (22-29); Chloride 106 mmol/L (98-107); Globulin 2.4 g/dL (1.3-4.6); Glucose 118 mg/dL (65-115); Osmolality Calculated 298 mOsm/kg (285-295); Potassium 3.8 mmol/L (3.5-5.1); Sodium 143 mmol/L (136-145); Total Bilirubin 0.3 mg/dL (0.15-1.2); Total Protein 6.5 g/dL (6.6-8.7)
--- NOTE | 2022-03-03 20:09 | ED_ITS ---
HPI - General Adult General: Chief complaint: General Medical Stated complaint: BP problems Time Seen by Provider: 03/03/22 20:09 History of Present Illness: Ms. Garcia is an 81-year-old lady with history of hypertension, hyperlipidemia, intermittent atrial fibrillation, bradycardia pr esents to the emergency department due to concern for hypertension. She reports seeing cardiology on 02/25 and at that time was noted to be bradycardic and had medication change which involved discussed continuing diltiazem, increasing metoprolol succinate to 150 mg daily and increasing valsartan to 160 mg twice daily. Since that time she has noticed increased systolic blood pressure at home. No significant associated typical cardiac features or neurologic symptoms. She does endorse few episodes of diarrhea yesterday however this is improved and denies abdominal pain. Intensity symptoms is minimal. Course has persisted/worsened. No other specific changes in health, exacerbating, or all eviating factors identified. Onset (ago): day(s) Relieving factors: none Exacerbating factors: none Associated symptoms: Reports no associated symptoms Review of Systems General: Reports: 10 or more systems reviewed and unremarkable except in HPI and below PFSH ED 2 PFSH: Medical History Dyslipidemia GERD (gastroesophageal reflux disease) HTN (hypertension) Recurrent UTI Urinary hesitancy Uterine cancer Surgical History H/O esophagogastroduodenoscopy (08/20/20) Gastritis H/O tubal ligation H/O: hysterectomy History of colonoscopy with polypectomy (08/20/20) Diverticulosis Family History Mother , IN HER 80'S Diabetes Father , IN HIS 80'S Hypertension Social History Smoking and tobacco status: former smoker Alcohol intake: never Marital status: / Current occupational status: retired Current occupation: Retired History of recent travel: No Physical Exam Const: COMMON NORMALS: alert GENERAL APPEARANCE: cooperative and well developed HENMT: COMMON NORMALS: normocephalic and atraumatic HEAD & SCALP: normocephalic and atraumatic Eye: COMMON NORMALS: conjunctivae normal CONJUNCTIVA: Yes conjunctivae normal SCLERA: sclerae normal Neck/C-Spine: COMMON NORMALS: supple GENERAL: Yes trachea midline Resp: COMMON NORMALS: clear to auscultation bilaterally EFFORT & INSPECTION: Yes able to speak in complete sentences AUSCULTATION: clear to auscultation bilaterally Cardio: COMMON NORMALS: regular rate and regular rhythm RATE: regular rate RHYTHM: regular rhythm GI: COMMON NORMALS: Soft to palpation PALPATION: Yes Soft to palpation and No Tenderness to palpation present (GI) Extremity: GENERAL: Yes normal exam except as noted and No edema Neuro: COMMON NORMALS: moves all extremities SENSORIUM/ORIENTATION: Yes alert and No Orientation impaired Psych: COMMON NORMALS: mental status grossly normal and Normal thought process present THOUGHT PROCESS: Normal thought process present Course ED course: - Patient was seen and evaluated by me at bedside - Patient placed on cardiac monitors, IV access obtained - Initial evaluation notable for exam as above. - Labs and xrays personally interpreted by me. EKG notable for sinus rhythm, nonspecific ST segment abnormalities, no STEMI. -Antihypertensive ordered - Labs notable for no evidence of acute endorgan dysfunction - Imaging notable for no lobar consolidation or pneumothorax - Upon serial reexamination after treatment the patient was improved - Based on patient history, evaluation, and testing as interpreted the most like ly cause of the patient's condition is uncontrolled hypertension improved with the treatment - The results of ED evaluation were discussed with the patient including prescriptions and/or symptomatic cares (if applicable) including appropriate and responsible use, followup plan, and return precautions. The patient verbalized understanding and felt safe for discharge. - Patient discharged in satisfactory condition. Note: Click bubbles or prepopulated ford in note writing are used for assistance with data collection and billing and are inherently more limited than narrative and other text portions of this note. Please use narrative for additional clinical history and defer to narrative/free test for any case of contradictory information. If information appears in only free text or click bubble it should be considered present or absent as reported. Please contact note web content writer for clarifications of clinical information or contradictory information. MDM is a brief summary, contradictory or erroneous seeming information should be clarified and full note should be reviewed. Vital Signs: Vital signs: Vital Signs Temperature 98.1 F 03/04/22 01:23 Pulse Rate 64 03/04/22 01:23 Respiratory Rate 16 03/04/22 01:23 Blood Pressure 149/67 03/04/22 01:23 Pulse Oximetry 93 03/04/22 01:23 Oxygen Delivery Me thod 03/04/22 00:26 MDM - General Adult Medical Decision Making 81-year-old lady presenting with elevated blood pressures in the context of medication change. No evidence of endorgan dysfunction. Satisfactory for outpatient management with close cardiology follow-up. Medical Records I reviewed the patient's medical records. Lab Data I reviewed the patient's lab results. : 03/03/22 19:33 03/03/22 19:33 Radiology Impressions Chest X-Ray 03/03/22 18:29 IMPRESSION: 1. Negative for infiltrate. 2. Cardiomegaly. Laboratory Results WBC 9.1 10^3/uL (4.0-10.0) 03/03/22 19:33 RBC 4.70 10^6/uL (4.1-5.3) 03/03/22 19:33 Hgb 12.2 g/dL (11.5-15.3) 03/03/22 19:33 Hct 40.3 % (37.0-47.0) 03/03/22 19:33 MCV 85.7 fl (81-99) 03/03/22 19:33 MCH 26.0 pg (28.0-34.0) L 03/03/22 19:33 MCHC 30.3 g/dL (30.0-36.0) 03/03/22 19:33 RDW 14.9 % (12.1-15.1) 03/03/22 19:33 Plt Count 209 10^3/cmm (130-400) 03/03/22 19:33 MPV 12.8 fL (7.4-10.4) H 03/03/22 19:33 Neut % (Auto) 69.8 % 03/03/22 19:33 Lymph % (Auto) 16.2 % 03/03/22 19:33 [place] % (Auto) 8.1 % 03/03/22 19:33 Eos % (Auto) 5.3 % 03/03/22 19:33 Baso % (Auto) 0.4 % 03/03/22 19:33 Neut # (Auto) 6.32 10^3/uL (1.8-7.7) 03/03/22 19:33 Lymph # (Auto) 1.5 10^3/uL (0.8-4.8) 03/03/22 19:33 [place] # (Auto) 0.7 10^3/uL (0.2-0.9) 03/03/22 19:33 Eos # (Auto) 0.5 10^3/uL (0.0-0.8) 03/03/22 19:33 Baso # (Auto) 0.0 10^3/uL (0.0-0.1) 03/03/22 19:33 Nucleated RBC % (auto) 0 % 03/03/22 19:33 Nucleated RBCs # 0.0 /100WBC 03/03/22 19:33 Sodium 143 mmol/L (136-145) 03/03/22 19:33 Potassium 3.8 mmol/L (3.5-5.1) 03/03/22 19:33 Chloride 106 mmol/L (98-107) 03/03/22 19:33 Carbon Dioxide 27 mmol/L (22-29) 03/03/22 19:33 Anion Gap 13.8 (5-19) 03/03/22 19:33 BUN 14 mg/dL (8-23) 03/03/22 19:33 Creatinine 0.9 mg/dL (0.5-0.9) 03/03/22 19:33 GFR Calculation Not Reportable 03/03/22 19:33 Glucose 118 mg/dL (65-115) H 03/03/22 19:33 Calculated Osmolality 298 mOsm/kg (285-295) H 03/03/22 19:33 Calcium 9.3 mg/dL (8.5-10.5) 03/03/22 19:33 Total Bilirubin 0.3 mg/dL (0.15-1.2) 03/03/22 19:33 AST 14 U/L (0-32) 03/03/22 19:33 ALT 9 U/L (0-33) 03/03/22 19:33 Alkaline Phosphatase 68 U/L (35-105) 03/03/22 19:33 Troponin T Gen 5 ng/L 16 ng/L (0-10) H 03/03/22 19:33 Troponin T 120 Minute 13.62 ng/L (0-10) H 03/03/22 21:38 Delta Troponin T -2.38 ABS# (0-10) L 03/03/22 21:38 Total Protein 6.5 g/dL (6.6-8.7) L 03/03/22 19:33 Albumin 4.1 g/dL (3.5-5.2) 03/03/22 19:33 Globulin 2.4 g/dL (1.3-4.6) 03/03/22 19:33 Discharge Plan Discharge Patient Disposition: Home Clinical Impression: HTN (hypertension) Condition: Stable Prescriptions: New amlodipine 5 mg tablet 5 mg PO DAILY Qty: 30 0RF No Action clonidine HCl 0.2 mg tablet 0.2 mg PO BID metoprolol succinate 100 mg tablet extended release 24 hr 150 mg PO DAILY@1800 Qty: 135 3RF valsartan 160 mg tablet 160 mg PO BID Qty: 180 3RF simvastatin 20 mg tablet 20 mg PO DAILY@1800 aspirin 81 mg Tablet,Delayed Release (Dr/Ec) 81 mg PO QPM pantoprazole 40 mg tablet,delayed release (DR/EC) 40 mg PO DAILY@0500 cyanocobalamin (vitamin B-12) 1,000 mcg/mL solution 1,000 mcg IM Q30D levothyroxine [Euthyrox] 88 mcg tablet 100 mcg PO DAILY@0500 meloxicam 15 mg tablet 15 mg PO QPM Vision Formula (with lutein) 1,000 unit-200 mg-60 unit-2 mg Tablet 1 tab PO QAM Rx Instructions: administer after a meal cholecalciferol (vitamin D3) 1,250 mcg (50,000 unit) capsule 50,000 unit PO .TWICE A WEEK Rx Instructions: on thu and Probiotic 1 cap PO QAM Discharge Orders: Discharge ED (Routine); Ordered 03/04/22 Ordered By: Aly Rene Referrals: Roc Sage, [Primary Care Provider] - Discharge Diet: Usual diet Discharge Activity: Increase activity as tolerated Patient Instructions: Hydralazine (By mouth), Amlodipine (By mouth), Hypertension (ED) Activity Restrictions/Additional Instructions: Thank you for visiting the emergency department. You were seen and evaluated for generalized symptoms with high blood pressure. The exact cause of your high blood pressure is unclear though likely related to medication changes. We are p leased that you had improvement in the emergency department. I will add amlodipine to her your medication regimen. Please continue all other previously prescribed medications. Additionally I will add hydralazine which you can take as needed up to once every 8 hours for blood pressure systolic gre ater than 180. Please follow-up with cardiology and your primary care provider. Return to the emergency department for uncontrolled symptoms, any new neurologic symptoms, chest pain, shortness of breath, or anything else that you are concerned about a feel needs emergency department evaluation. 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
[2022-03-03 20:47] LABS: Troponin T (5th) Once 16 ng/L (0-10)
[2022-03-03] MEDS: hyDRALAzine 20 mg/mL INJ 1 mL 10 MG IVP ×2 (20:52→21:51)
[2022-03-03] MEDS: amlodipine 5 mg Tablet PO (21:51)
[2022-03-03 22:18] LABS: Troponin 5 2HR 13.62 ng/L (0-10)
[2022-03-03 22:19] LABS: Troponin 5 2HR Delta -2.38 ABS# (0-10)
--- NOTE | 2022-03-03 22:49 | ECG_ITS ---
[facility] Test Date: 2022-03-03 Pat Name: Silvia Garcia Department: Room: Gender: Female Travel Services Professional: : 1940 Requested By: Ayl Rene Order Number: [id number] Shyanne MD: Ron Davila M.D. Measurements Intervals [place] Rate: 67 P: 84 FL: 177 QRS: 59 QRSD: 97 T: 95 QT: 337 QTc: 357 Interpretive Statements SINUS RHYTHM NONSPECIFIC T-WAVE ABNORMALITY Compared to ECG 03/03/2022 18:31:48 T-wave abnormality now present Sinus bradycardia no longer present Electronically Signed On 03-05-2022 8:18:59 CDT by Ron Davila M.D. [id number]
--- NOTE | 2022-03-03 22:54 | PC.NURSE ---
repeats ekg performed on patient and given to provider Anju.
[2022-03-03] MEDS: hyDRALAzine 25 mg Tablet PO (23:46)
[2022-03-04 00:26] VITALS: BP 159/63; PULSE 61; RESP 19; O2SAT 91
[2022-03-04 01:23] VITALS: BP 149/67; PULSE 64; RESP 16; TEMP 36.7; O2SAT 93
--- NOTE | 2022-03-04 10:59 | DCPLANNER ---
Addendum entered by Staci Cuba 05/05/22 15:40: Patient had a follow up appointment scheduled with heart care - patient did attend appointment Addendum entered by Staci Cuba 03/06/22 15:25: Patient has a follow up appointment scheduled for Friday, March 11, 2022 at 1:45 with Raegan Colmenares at [facility]. Clinic will call patient with appointment information. Original Note: stock room manager had message to schedule a follow up appointment for patient with cardiology. stock room manager sent patients information to the front office staff a heart [facility]. Patients information will be printed and reviewed. Clinic will call patient with appointment information.
== END 2022-03-04 01:24 | disposition home or self-care (01) ==
PROVIDERS: Emergency Provider Emergency Medicine; PCP Electrodiagnostic Medicine
DX: I10 Essential (primary) hypertension (principal); E78.5 Hyperlipidemia, unspecified; K21.9 Gastro-esophageal reflux disease without esophagitis; Z79.82 Long term (current) use of aspirin
CPT/HCPCS: 36415; 71045; 80053; 84484; 85025; 93005; 96374; 96376; 99285; J0360

== ENCOUNTER 2022-03-05 09:03 | Outpatient (CLI) | payer MEDICARE, SELFPAY ==
[2022-03-05 10:14] LABS: Anion Gap 12.6 (5-19); Blood Urea Nitrogen 14 mg/dL (8-23); Calcium 9.5 mg/dL (8.5-10.5); Carbon Dioxide 26 mmol/L (22-29); Chloride 101 mmol/L (98-107); Glucose 106 mg/dL (65-115); Osmolality Calculated 283 mOsm/kg (285-295); Potassium 3.6 mmol/L (3.5-5.1); Sodium 136 mmol/L (136-145)
== END 2022-03-05 09:04 | disposition home or self-care (01) ==
LOC: LAB 09:06
PROVIDERS: PCP Electrodiagnostic Medicine; Visit Provider Internal Medicine Cardiovascular Disease
DX: I10 Essential (primary) hypertension (principal); I48.91 Unspecified atrial fibrillation
CPT/HCPCS: 36415; 80048

== ENCOUNTER → 2022-03-11 13:22 | Outpatient (BNVA) | payer MEDICARE, SELFPAY | PROVIDERS: PCP Electrodiagnostic Medicine; Visit Provider Nurse Practitioner Family | DX: I10 Essential (primary) hypertension (principal) | CPT/HCPCS: 99213 ==

== ENCOUNTER 2022-08-17 09:50 | Inpatient (IN) | payer MEDICARE, MEDICAID, SELFPAY ==
[2022-08-17] VITALS (9 sets, daily range): BP systolic 135–174; BP diastolic 62–80; PULSE 58–70; RESP 18; TEMP 36.6–36.8; O2SAT 91–95; BMI 28.3
[2022-08-17 10:23] LABS: Basophils # 0.1 10^3/uL (0.0-0.1); Basophils % 0.6 %; Eosinophils # 0.2 10^3/uL (0.0-0.8); Eosinophils % 2.2 %; Hematocrit 39.9 % (37.0-47.0); Hemoglobin 12.2 g/dL (11.5-15.3); Lymphocytes # 1.7 10^3/uL (0.8-4.8); Lymphocytes % 19.3 %; Mean Corpuscular HGB Conc 30.6 g/dL (30.0-36.0); Mean Corpuscular Hemoglobin 25.4 pg (28.0-34.0); Mean Platelet Volume 12.7 fL (7.4-10.4); Monocytes # 0.9 10^3/uL (0.2-0.9); Monocytes % 9.9 %; Neutrophils # 5.81 10^3/uL (1.8-7.7); Neutrophils % 67.8 %; Nucleated Red Blood Cells % 0 %; Platelet Count 223 10^3/cmm (130-400); Red Blood Count 4.81 10^6/uL (4.1-5.3); Red Cell Distribution Width 14.5 % (12.1-15.1); White Blood Count 8.6 10^3/uL (4.0-10.0)
[2022-08-17 10:48] LABS: Alanine Aminotransferase 8 U/L (0-33); Alkaline Phosphatase 65 U/L (35-105); Anion Gap 16.4 (5-19); Aspartate Amino Transferase 14 U/L (0-32); Blood Urea Nitrogen 29 mg/dL (8-23); Calcium 9.1 mg/dL (8.5-10.5); Carbon Dioxide 27 mmol/L (22-29); Chloride 97 mmol/L (98-107); Globulin 3.1 g/dL (1.3-4.6); Glucose 125 mg/dL (65-115); Lipase 49 U/L (13-60); Osmolality Calculated 291 mOsm/kg (285-295); Potassium 3.4 mmol/L (3.5-5.1); Sodium 137 mmol/L (136-145); Total Bilirubin 0.3 mg/dL (0.15-1.2); Total Protein 7.1 g/dL (6.6-8.7)
[2022-08-17 10:49] LABS: Lactic Sepsis W/Reflex 0.7 mmol/L (0.5-2.2)
[2022-08-17 11:03] LABS: INR 1.05 (0.8-1.2)
--- NOTE | 2022-08-17 11:14 | W.ED.ABDPA2 ---
HPI - Abdominal Pain General: Chief Complaint: Abdominal Pain Stated Complaint: black stool Time Seen by Provider: 08/17/22 10:01 History of Present Illness: This patient is an 81 year old presenting with abdominal discomfort and black stools. She reports that for the past several weeks she has had excessive gas and bloating, and then two days ago started having pain that radiated up from her lower abdomen to her epigastric area. She also has had some nausea, and this morning had loose bowels and black stool. She has been seeing her PCP about the gas, and was taken off her fiber supplement. She has taken simethicone and pepto bismol OTC for symptoms. No urinary symptoms, no fever, no visible blood in the urine. No easy bruising. She is not on a blood thinner other than a baby aspirin. She has had a hysterectomy in 2011 for cancer. No other abdominal surgeries. She last had a colonoscopy about a year ago. She has had ulcers diagnosed in the remote past, but never bleeding ulcers. [facility] ED PFSH: Medical History Dyslipidemia GERD (gastroesophageal reflux disease) HTN (hypertension) Recurrent UTI Urinary hesitancy Uterine cancer Surgical History H/O esophagogastroduodenoscopy (08/20/20) Gastritis H/O tubal ligation H/O: hysterectomy History of colonoscopy with polypectomy (08/20/20) Diverticulosis Family History Mother , IN HER 80'S Diabetes Father , IN HIS 80'S Hypertension Social History Smoking and tobacco status: former smoker Alcohol intake: never Marital status: / Current occupational status: retired Current occupation: Retired Physical Exam Const: COMMON NORMALS: no acute distress, patient oriented x3, no limitations and alert GENERAL APPEARANCE: cooperative and comfortable HENMT: HEAD & SCALP: normal to inspection FACE & SINUS: normal facial exam Eye: GENERAL EYE: appearance normal, both eyes and all related structures Neck/C-Spine: COMMON NORMALS: supple, no meningeal signs and no JVD Chest: COMMONS NORMALS: normal inspection of the chest Resp: COMMON NORMALS: normal respiratory effort, No use of accessory muscles and clear to auscultation bilaterally AUSCULTATION: clear to auscultation bilaterally Cardio: COMMON NORMALS: no JVD, regular rate, regular rhythm and No murmurs present (Cardio) RATE: regular rate RHYTHM: regular rhythm GI: COMMON NORMALS: Soft to palpation AUSCULTATION: Yes normoactive bowel sounds PALPATION: Yes Soft to palpation and Yes Tenderness to palpation present (GI) (epigastric. mild) PERCUSSION: normal to percussion RECTAL EXAM: normal sphincter tone and other (hemepositive, black stool) Back/Pelvis: COMMON NORMALS: thoracic and lumbar spine normal to inspection Extremity: COMMON NORMALS: normal to inspection Neuro: COMMON NORMALS: patient oriented x3, moves all extremities, no focal motor deficits and no sensory deficits noted SENSORIUM/ORIENTATION: Yes alert MENINGEAL SIGNS: Yes no meningeal signs Psych: COMMON NORMALS: mental status grossly normal, cooperative and normal affect Skin: COMMON NORMALS: no rashes or lesions noted and turgor normal GENERAL SKIN EXAM: no rashes or lesions noted and turgor normal Course Vital Signs: Vital signs: Vital Signs Temperature 98 F 08/17/22 09:56 Pulse Rate 62 08/17/22 11:41 Blood Pressure 173/77 08/17/22 11:41 Pulse Oximetry 94 08/17/22 11:41 Oxygen Delivery Me thod 08/17/22 11:41 MDM - Abdominal Pain Medical Decision Making Patient with symptoms suggesting UGI bleed vs facitious GI bleed due to pepto bismol. Rectal exam is heme positive, hgb lower than baseline, elevated BUN, tender epigastric area. Consistent with UGI bleeding. Consulted Dr. Roach who agrees to scope her, ask for the hospitalist to admit - Dr. Molina agrees. Type and screen sent. Protonix, IV fluids, NPO. Lab Data 08/17/22 10:15 08/17/22 10:15 Labs/Radiology: Laboratory Results WBC 8.6 10^3/uL (4.0-10.0) 08/17/22 10:15 RBC 4.81 10^6/uL (4.1-5.3) 08/17/22 10:15 Hgb 12.2 g/dL (11.5-15.3) 08/17/22 10:15 Hct 39.9 % (37.0-47.0) 08/17/22 10:15 MCV 83.0 fl (81-99) 08/17/22 10:15 MCH 25.4 pg (28.0-34.0) L 08/17/22 10:15 MCHC 30.6 g/dL (30.0-36.0) 08/17/22 10:15 RDW 14.5 % (12.1-15.1) 08/17/22 10:15 Plt Count 223 10^3/cmm (130-400) 08/17/22 10:15 MPV 12.7 fL (7.4-10.4) H 08/17/22 10:15 Neut % (Auto) 67.8 % 08/17/22 10:15 Lymph % (Auto) 19.3 % 08/17/22 10:15 [place] % (Auto) 9.9 % 08/17/22 10:15 Eos % (Auto) 2.2 % 08/17/22 10:15 Baso % (Auto) 0.6 % 08/17/22 10:15 Neut # (Auto) 5.81 10^3/uL (1.8-7.7) 08/17/22 10:15 Lymph # (Auto) 1.7 10^3/uL (0.8-4.8) 08/17/22 10:15 [place] # (Auto) 0.9 10^3/uL (0.2-0.9) 08/17/22 10:15 Eos # (Auto) 0.2 10^3/uL (0.0-0.8) 08/17/22 10:15 Baso # (Auto) 0.1 10^3/uL (0.0-0.1) 08/17/22 10:15 Nucleated RBC % (auto) 0 % 08/17/22 10:15 Nucleated RBCs # 0.0 /100WBC 08/17/22 10:15 PT 14.10 SECONDS (12.1-14.9) 08/17/22 10:15 INR 1.05 (0.8-1.2) 08/17/22 10:15 Sodium 137 mmol/L (136-145) 08/17/22 10:15 Potassium 3.4 mmol/L (3.5-5.1) L 08/17/22 10:15 Chloride 97 mmol/L (98-107) L 08/17/22 10:15 Carbon Dioxide 27 mmol/L (22-29) 08/17/22 10:15 Anion Gap 16.4 (5-19) 08/17/22 10:15 BUN 29 mg/dL (8-23) H 08/17/22 10:15 Creatinine 1.2 mg/dL (0.5-0.9) H 08/17/22 10:15 GFR Calculation Not Reportable 08/17/22 10:15 Glucose 125 mg/dL (65-115) H 08/17/22 10:15 Calculated Osmolality 291 mOsm/kg (285-295) 08/17/22 10:15 Lactic Acid 0.7 mmol/L (0.5-2.2) 08/17/22 10:15 Calcium 9.1 mg/dL (8.5-10.5) 08/17/22 10:15 Total Bilirubin 0.3 mg/dL (0.15-1.2) 08/17/22 10:15 AST 14 U/L (0-32) 08/17/22 10:15 ALT 8 U/L (0-33) 08/17/22 10:15 Alkaline Phosphatase 65 U/L (35-105) 08/17/22 10:15 Total Protein 7.1 g/dL (6.6-8.7) 08/17/22 10:15 Albumin 4.0 g/dL (3.5-5.2) 08/17/22 10:15 Globulin 3.1 g/dL (1.3-4.6) 08/17/22 10:15 Lipase 49 U/L (13-60) 08/17/22 10:15 Blood Type A Positive 08/17/22 10:15 Rho(D) Type Positive 08/17/22 10:15 Antibody Screen Positive 08/17/22 10:15 Discharge Plan Discharge Patient Disposition: Placed in Observation Clinical Impression: Acute upper gastrointestinal bleeding, Abdominal pain Condition: Stable Prescriptions: No Action clonidine HCl 0.2 mg tablet 0.2 mg PO BID PRN (Reason: Blood Pressure) metoprolol succinate 100 mg tablet extended release 24 hr 150 mg PO DAILY@1800 Qty: 135 3RF simvastatin 20 mg tablet 20 mg PO DAILY@1800 aspirin 81 mg Tablet,Delayed Release (Dr/Ec) 81 mg PO QPM meloxicam 15 mg tablet 15 mg PO QPM Vision Formula (with lutein) 1,000 unit-200 mg-60 unit-2 mg Tablet 1 tab PO QAM Rx Instructions: administer after a meal chlorthalidone 50 mg Tablet 50 mg PO DAILY levothyroxine 100 mcg tablet 100 mcg PO DAILY valsartan 320 mg Tablet 320 mg PO DAILY amlodipine 5 mg tablet 10 mg PO DAILY Referrals: Roc Sage DO [Primary Care Provider] - Coding Level of Care Code ED Hr Internship for Beka Brown
[2022-08-17] MEDS: pantoprazole 40 mg SDV IVP (11:38)
[2022-08-17 13:36] LABS: Add Urine Microscopic? YES; Bilirubin Urine Neg (Negative); Blood Urine 2+ (Negative); Glucose Urine UA Norm (Normal); Ketones Urine Negative (Negative); Leukocyte Esterase Urine Trace (Negative); Nitrate Urine Negative (Negative); Protein Urine Neg (Negative); Urine Appearance SL Hazy (CLEAR); Urine Color Yellow (Yellow); Urobilinogen Urine Norm (Negative); pH Urine 6 (5-7)
[2022-08-17 13:41] LABS: Add Urine Culture? Yes; Bacteria Urine 3+ /hpf; RBC Urine 0-4 /hpf (0-2); Squamous Epithelial Cell Urine 0-4 /hpf (0-5)
--- NOTE | 2022-08-17 18:47 | P.HP_ITS ---
Providers/Chief Complaint Admitting Physician: Cici Molina MD Primary Care Provider: Roc Sage DO Chief Complaint: black stool History of Present Illness Silvia Garcia is a 81 year old female with PMH HTN, hypothyroidismpresenting with c/o pain and abdominal bloating over the last 5-7 days. She states that on thursday her abdominal pain got much worse, was located in the periumbilical area, radiating up into the epigatrsic region. She had been taking simethicone up to 4 times a day with no relief. She felt subjective fever and chiils on fri and sat. Today she had dark tarry bowel movements which made her concerned for bleeding so she presented to the ER. No past h/o GI blee. Clinically diagnosed with GERD in her 30s. Pancho has not recurred since. no hematemesis. Denies any urinary complaints. 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 Vega. No abnormalities were found on colonoscopy except diverticulosis. UGIE revealed a schatzki's ring and non erosive gastritis. H. pylori negative at that time. Review of Systems General: Reports: 10 or more systems reviewed and unremarkable except in HPI and below Const: Denies: fever(s), chills or body aches Eyes: Denies: change in vision, blurry vision or photophobia ENMT: Reports: hoarseness; Denies: throat pain, enlarged tonsils, odynophagia or nasal congestion Card: Denies: chest pain, palpitations, irregular heart rhythm, edema, swelling of feet/ankles, lightheadedness, pre-syncope, dyspnea on exertion or orthopnea Resp: Denies: dyspnea, productive cough, non-productive cough, wheezing, stridor, pain on inspiration, change in phlegm color, hemoptysis or chest congestion GI: Denies: abdominal pain, nausea, vomiting, hematemesis, coffee ground gauri sis, dysphagia, heartburn, diarrhea, constipation, GI cramping, change in stool character, hematochezia or melena : Denies: flank pain, difficulty voiding, dysuria, urinary frequency, urinary urgency, urinary hesitancy or hematuria Musc: Denies: neck pain, back pain, extremity pain, joint swelling, joint warmth or deformity Neuro: Denies: headache(s), numbness in extremities, weakness in extremities, sensory changes, difficulty walking, frequent falls, dizziness, vertigo, behavioral changes, Slurred speech present or seizure-like activity Psych: Denies: anxiety, depression, suicidal ideation or homicidal ideation Endo: Denies: polyuria, polydipsia, tired all the time, cold intolerance or hot flashes Leroy/Lymph: Denies: easy bruising or easy bleeding Medications/Allergies Home Medications Medication Instructions Recorded Confirmed Last Taken Type simvastatin 20 mg tablet 20 mg PO DAILY@1800 06/13/19 08/17/22 08/16/22 History aspirin 81 mg tablet,delayed 81 mg PO QPM 06/21/20 08/17/22 08/16/22 History release meloxicam 15 mg tablet 15 mg PO QPM 08/23/21 08/17/22 08/16/22 History vit A 300 mcg-C 200 mg-E 27 1 tab PO QAM 08/23/21 08/17/22 08/16/22 History mg-lutein 2 mg and minerals tablet (Vision Formula (with lutein)) metoprolol succinate 100 mg 150 mg PO DAILY@1800 #135 tabs 02/25/22 08/17/22 08/16/22 Rx tablet,extended release 24 hr clonidine HCl 0.2 mg tablet 0.2 mg PO BID PRN Blood Pressure 03/11/22 08/17/22 Unknown History amlodipine 5 mg tablet 10 mg PO DAILY 08/17/22 08/17/22 08/16/22 History chlorthalidone 50 mg tablet 50 mg PO DAILY 08/17/22 08/17/22 08/17/22 History levothyroxine 100 mcg tablet 100 mcg PO DAILY 08/17/22 08/17/22 08/16/22 History valsartan 320 mg tablet 320 mg PO DAILY 08/17/22 08/17/22 08/17/22 History Allergies Allergy/AdvReac Type Severity Reaction Status Date / Time hydralazine Allergy Intermediate ADV-Weaknes Verified 08/17/22 09:56 s PFSH Acute PFSH: Medical History Dyslipidemia GERD (gastroesophageal reflux disease) HTN (hypertension) Recurrent UTI Urinary hesitancy Uterine cancer Surgical History H/O esophagogastroduodenoscopy (08/20/20) Gastritis H/O tubal ligation H/O: hysterectomy History of colonoscopy with polypectomy (08/20/20) Diverticulosis Family History Mother , IN HER 80'S Diabetes Father , IN HIS 80'S Hypertension Social History Smoking and tobacco status: former smoker Alcohol intake: never Marital status: / Current occupational status: retired Current occupation: Retired Vitals/I&O/Wt Last Vital Signs Temp 98 F 08/17/22 09:56 Pulse 66 08/17/22 15:08 BP 135/71 08/17/22 15:08 Pulse Ox 95 08/17/22 15:08 O2 Del Method 08/17/22 16:56 Weight last 48 hrs Weight 74.843 kg Physical Exam Narrative: General: No acute distress, AO x2 HEENT: PERRLA, pupils bilaterally equal and reactive, pallors not present Chest: Normal vesicular breath sounds, no added sounds, equal good air entry bilaterally CVS: S1-S2 regular, no murmurs, no tachycardia, no gallops, no rubs Abdomen: Soft, nontender, no organomegaly, bowel sounds present Neuro: No focal deficits, no facial deformity, AO x3, power 5/5 in all limbs Data 08/17/22 10:15 08/17/22 10:15 A&P Assessment and plan (1) Acute upper gastrointestinal bleeding: (2) Abdominal pain: Plan 81F presenting with one week of bloating and flatulence, then abdominal pain over the past 2-3 days with development of pancho today. Suspect symptoms related to UGI bleed , she has a h/o non erosive gastritis Alternate differentials include diverticulitis (reports subjective fever, abdominal pain) will check CT abdomen NPo after midnight for possible UGIE tomorrow Gen/surg consulted from ER HB currently at 12, recheck this evening , hemodynamically stable protonix infusion @ 8mg/hr DVT ppx: SCDs only Attestations Medical Necessity Statement*: >2 midnight stay anticipated for UGI bleed, planned endoscopy Coding Level of Care Code Acute Code for Chg Fwd Diagnoses Acute upper gastrointestinal bleeding K92.2 Abdominal pain R10.9
--- NOTE | 2022-08-17 18:56 | CTR_ITS ---
PROCEDURE INFORMATION: Exam: CT Abdomen And Pelvis Without Contrast Exam date and time: 08/17/2022 10:38 PM Age: 81 years old Clinical indication: Abdominal pain; Generalized; Prior surgery; Surgery date: 6+ months; Surgery type: Hysterectomy; Additional info: Assess for diverticulitis TECHNIQUE: Imaging protocol: Computed tomography of the abdomen and pelvis without contrast. Radiation optimization: All CT scans at this facility use at least one of these dose optimization techniques: automated exposure control; mA and/or kV adjustment per patient size (includes targeted exams where dose is matched to clinical indication); or iterative reconstruction. REPORTING DATA: Count of CT and Cardiac NM exams in prior 12 months: This patient has received 0 known CTs and 0 known cardiac nuclear medicine studies in the 12 months prior to the current study. COMPARISON: CT abdomen pelvis w con* [id number] 07/04/2020 10:06 AM RADIATION DOSE METRICS: Total DLP (mGy-cm): 599.33 FINDINGS: Lungs: Mild atelectasis versus fibrosis noted at the lung bases. Heart: Small pericardial effusion. Mild cardiomegaly. Liver: The liver is unremarkable in appearance. Gallbladder and bile ducts: No calcified gallstones in the gallbladder. No gallbladder wall thickening. No pericholecystic fluid. No biliary dilatation. Pancreas: The pancreas is normal in appearance. No pancreatic duct dilatation. Spleen: No focal splenic lesion. No splenomegaly. Adrenal glands: The adrenal glands appear within normal limits. Kidneys and ureters: The kidneys are morphologically normal. No nephrolithiasis. No hydronephrosis. No ureteral calculi. No obstructive uropathy. Stomach and bowel: Diverticulosis of the rectosigmoid colon. No changes of acute diverticulitis. No acute gastric abnormality demonstrated. The small bowel is unremarkable as demonstrated. Appendix: No evidence of appendicitis. Normal appendix identified. Intraperitoneal space: No pneumoperitoneum. No significant fluid collection. Vasculature: The aorta is atherosclerotic. No aortic aneurysm. Lymph nodes: No pathologically enlarged lymph nodes. Urinary bladder: The urinary bladder is unremarkable in appearance. Reproductive: The uterus is not visualized, consistent with hysterectomy. Bones/joints: Degenerative spine changes are noted. Advanced disc degeneration at L2-L3 and L5-S1. Degenerative change of the bilateral hip joints. Soft tissues: Unremarkable. CT/CT abdomen pelvis wo con [id number] IMPRESSION: 1. The kidneys are morphologically normal. No nephrolithiasis. No hydronephrosis. No ureteral calculi. No obstructive uropathy. 2. Diverticulosis of the rectosigmoid colon. No changes of acute diverticulitis. 3. No acute abnormality demonstrated in the abdomen and pelvis. 4. There is no interval change from the prior examination.
[2022-08-17] MEDS: sodium chloride 0.9% 1,000 ML 75 ML IV (21:02)
[2022-08-17] MEDS: pantoprazole 40 MG in sodium chloride 0.9% (plus) 100 ML 20 MG IV (21:29)
[2022-08-17 23:44] LABS: Hematocrit 36.4 % (37.0-47.0); Hemoglobin 11.3 g/dL (11.5-15.3)
[2022-08-18] VITALS (12 sets, daily range): BP systolic 109–165; BP diastolic 57–78; PULSE 58–97; RESP 16–18; TEMP 36.1–37; O2SAT 91–96
--- NOTE | 2022-08-18 02:09 | PC.NURSE ---
1900: Bedside shift report obtained from JEFFERY Villegas.
[2022-08-18] MEDS: pantoprazole 40 MG in sodium chloride 0.9% (plus) 100 ML 20 MG IV ×3 (02:11→16:15)
--- NOTE | 2022-08-18 10:58 | P.ANESASSM_ITS ---
Pre-Anesthetic Assessment Height/Weight: Height 1.63 m Weight 74.843 kg Temp Pulse Resp BP Pulse Ox O2 Del Method 97.5 F L 83 17 120/68 95 08/18/22 07:37 08/18/22 07:37 08/18/22 07:37 08/18/22 07:37 08/18/22 07:37 08/18/22 07:37 Preop Diagnosis: Anemia Operation Date: 08/18/22 12:30 Proposed Procedures p EGD(Not Applicable) - Alfonzo Roach DO Familial anesthetic complications: None Was Beta Mayda taken within 24 hours: N/A (Last took metoprolol on Thursday) Was Clonidine taken within 24 hours: N/A (Last took Clonidine before Thursday) Social No alcohol and No tobacco Exam alert, oriented x 3, clear to auscultation bilaterally and regular rate & rhythm Airway Submandibular: within normal limits Cervical ROM: within normal limits Mallampati: Class II Dentition: false History/ROS No significant history except as noted and No significant complaints Pulmonary Chronic Obstructive Pulmonary Disease, Cough and Exertional Dyspnea CV/HEM Anemia, Arrythmia, Coronary Artery Disease and Hypertension None reported Hepatic None reported GI Gastroesophageal Reflux Disease Black stools Metabolic Hyperlipidemia and Thyroid Disease Musc/skel Lower Back Pain Neuropsych Neuropathy Anesthetic Plan ASA status: 2 Anesthesia: Anesthesia Evaluation and General Risk of > 500 ml blood loss (7ml/kg in children): No Medications/Allergies Home Medications Medication Instructions Recorded Confirmed Last Taken Type simvastatin 20 mg tablet 20 mg PO DAILY@1800 06/13/19 08/17/22 08/16/22 History aspirin 81 mg tablet,delayed 81 mg PO QPM 06/21/20 08/17/22 08/16/22 History release meloxicam 15 mg tablet 15 mg PO QPM 08/23/21 08/17/22 08/16/22 History vit A 300 mcg-C 200 mg-E 27 1 tab PO QAM 08/23/21 08/17/22 08/16/22 History mg-lutein 2 mg and minerals tablet (Vision Formula (with lutein)) metoprolol succinate 100 mg 150 mg PO DAILY@1800 #135 tabs 02/25/22 08/17/22 08/16/22 Rx tablet,extended release 24 hr clonidine HCl 0.2 mg tablet 0.2 mg PO BID PRN Blood Pressure 03/11/22 08/17/22 Unknown History amlodipine 5 mg tablet 10 mg PO DAILY 08/17/22 08/17/22 08/16/22 History chlorthalidone 50 mg tablet 50 mg PO DAILY 08/17/22 08/17/22 08/17/22 History levothyroxine 100 mcg tablet 100 mcg PO DAILY 08/17/22 08/17/22 08/16/22 History valsartan 320 mg tablet 320 mg PO DAILY 08/17/22 08/17/22 08/17/22 History Allergies Allergy/AdvReac Type Severity Reaction Status Date / Time hydralazine Allergy Intermediate ADV-Weaknes Verified 08/17/22 09:56 s Current Medications Generic Name Dose Route Start Last Admin Trade Name Luchoq PRN Reason Stop Dose Admin Sodium Chloride 1,000 mls @ 75 mls/hr 08/17/22 18:45 08/17/22 21:02 Sodium Chloride 0.9% IV 75 mls/hr .[id number] MARIAA Administration Pantoprazole Sodium 40 mg/ 100 mls @ 20 mls/hr 08/17/22 18:45 08/18/22 02:11 Sodium Chloride IV 8 mg/hr .Q5H MARIAA 20 mls/hr Administration 8 MG/HR PFSH Anesthesia Medical History Dyslipidemia GERD (gastroesophageal reflux disease) HTN (hypertension) Recurrent UTI Urinary hesitancy Uterine cancer Surgical History H/O esophagogastroduodenoscopy (08/20/20) Gastritis H/O tubal ligation H/O: hysterectomy History of colonoscopy with polypectomy (08/20/20) Diverticulosis Family History Mother , IN HER 80'S Diabetes Father , IN HIS 80'S Hypertension Social History Smoking and tobacco status: former smoker Alcohol intake: never Marital status: / Current occupational status: retired Current occupation: Retired Data Anesthesia 08/17/22 23:27 08/17/22 10:15 Short CBC 08/17/22 08/17/22 Range/Units 10:15 23:27 WBC 8.6 (4.0-10.0) 10^3/uL Hgb 12.2 11.3 L (11.5-15.3) g/dL Hct 39.9 36.4 L (37.0-47.0) % MCV 83.0 (81-99) fl Plt Count 223 (130-400) 10^3/cmm Neut % (Auto) 67.8 % Neut # (Auto) 5.81 (1.8-7.7) 10^3/uL BMP 08/17/22 10:15 Sodium 137 Potassium 3.4 L Chloride 97 L Carbon Dioxide 27 BUN 29 H Creatinine 1.2 H Glucose 125 H Calcium 9.1 Liver Function 08/17/22 Range/Units 10:15 Total Bilirubin 0.3 (0.15-1.2) mg/dL AST 14 (0-32) U/L ALT 8 (0-33) U/L Alkaline Phosphatase 65 (35-105) U/L Albumin 4.0 (3.5-5.2) g/dL Urine 08/17/22 Range/Units 12:34 Urine Color Yellow (Yellow) Urine Appearance Sl hazy A (CLEAR) Urine pH 6 (5-7) Ur Specific [place] 1.010 (1.005-1.030) Urine Protein Neg (Negative) Urine Glucose (UA) Norm (Normal) Urine Ketones Negative (Negative) Urine Nitrate Negative (Negative) Urine Bilirubin Neg (Negative) Ur Leukocyte Esterase Trace H (Negative) Urine RBC 0-4 H (0-2) /hpf Urine WBC 5-10 H (0-5) /hpf Blood Bank 08/17/22 10:15 Blood Type A Positive Rho(D) Type Positive Antibody Screen Positive Coags 08/17/22 10:15 PT 14.10 INR 1.05 Cardiac Studies: Echocardiogram 11/21/21 Cardiac Event Monitor 09/23/21
[2022-08-18] MEDS: sodium chloride 0.9% 1,000 ML 30 ML IV (12:06)
--- NOTE | 2022-08-18 12:10 | PM.CONSULT ---
Providers/Reason For Consult Consulting Physician/Specialty*: Dr. Alfonzo Roach DO/General surgery Reason for Consult*: Melena Attending Physician: Sarwat Collins MD Primary Care Provider: Roc Sage DO History of Present Illness History of Present Illness Silvia Garcia is a 81 year old female who presented to the hospital with a 1 day history of black tarry stools. She reports that she was randomly getting left lower quadrant abdominal pain that radiated up to her epigastrium. The pain did not go to her back. The pain was dull and intermittent. Nothing seems to make the pain better or worse. She denies any nausea or vomiting. Denies any fever or chills. Denies any heartburn. She does have a history of erosive gastritis. She was slightly anemic in the ER. Review of Systems General: Reports: 10 or more systems reviewed and unremarkable except in HPI and below Medications/Allergies Home Medications Medication Instructions Recorded Confirmed Last Taken Type simvastatin 20 mg tablet 20 mg PO DAILY@1800 06/13/19 08/17/22 08/16/22 History aspirin 81 mg tablet,delayed 81 mg PO QPM 06/21/20 08/17/22 08/16/22 History release meloxicam 15 mg tablet 15 mg PO QPM 08/23/21 08/17/22 08/16/22 History vit A 300 mcg-C 200 mg-E 27 1 tab PO QAM 08/23/21 08/17/22 08/16/22 History mg-lutein 2 mg and minerals tablet (Vision Formula (with lutein)) metoprolol succinate 100 mg 150 mg PO DAILY@1800 #135 tabs 02/25/22 08/17/22 08/16/22 Rx tablet,extended release 24 hr clonidine HCl 0.2 mg tablet 0.2 mg PO BID PRN Blood Pressure 03/11/22 08/17/22 Unknown History amlodipine 5 mg tablet 10 mg PO DAILY 08/17/22 08/17/22 08/16/22 History chlorthalidone 50 mg tablet 50 mg PO DAILY 08/17/22 08/17/22 08/17/22 History levothyroxine 100 mcg tablet 100 mcg PO DAILY 08/17/22 08/17/22 08/16/22 History valsartan 320 mg tablet 320 mg PO DAILY 08/17/22 08/17/22 08/17/22 History Allergies Allergy/AdvReac Type Severity Reaction Status Date / Time hydralazine Allergy Intermediate ADV-Weaknes Verified 08/17/22 09:56 s Current Medications Generic Name Dose Route Start Last Admin Trade Name Rosa PRN Reason Stop Dose Admin Sodium Chloride 1,000 mls @ 75 mls/hr 08/17/22 18:45 08/17/22 21:02 Sodium Chloride 0.9% IV 75 mls/hr .[id number] MARIAA Administration Pantoprazole Sodium 40 mg/ 100 mls @ 20 mls/hr 08/17/22 18:45 08/18/22 02:11 Sodium Chloride IV 8 mg/hr .Q5H MARIAA 20 mls/hr Administration 8 MG/HR Sodium Chloride 1,000 mls @ 30 mls/hr 08/18/22 11:00 08/18/22 12:06 Sodium Chloride 0.9% IV 08/19/22 10:59 30 mls/hr .Q24H MARIAA Administration PFSH Acute PFSH: Medical History Dyslipidemia GERD (gastroesophageal reflux disease) HTN (hypertension) Recurrent UTI Urinary hesitancy Uterine cancer Surgical History H/O esophagogastroduodenoscopy (08/20/20) Gastritis H/O tubal ligation H/O: hysterectomy History of colonoscopy with polypectomy (08/20/20) Diverticulosis Family History Mother , IN HER 80'S Diabetes Father , IN HIS 80'S Hypertension Social History Smoking and tobacco status: former smoker Alcohol intake: never Marital status: / Current occupational status: retired Current occupation: Retired Vitals/I&O/Wt Last Vital Signs Temp 97.2 F L 08/18/22 11:00 Pulse 84 08/18/22 11:00 Resp 18 08/18/22 11:00 BP 139/57 08/18/22 11:00 Pulse Ox 94 08/18/22 11:00 O2 Del Method 08/18/22 11:00 08/17/22 08/18/2208/18/23 22:59 06:59 14:59 Intake Total 94 / 94 Output Total 200 / 200 200 / 400 Balance -200 / -200 -106 / -306 Weight last 48 hrs Weight 165 lb Physical Exam Narrative: General : Patient is well developed , no acute distress, oriented x3 Head : Normal cephalic, a-traumatic. Ears : Pinnae and external canal are normal. Hearing is normal. Eyes : PERRLA, Sclera and injection are normal. No conjunctival discharge. Nose : Mucous membranes are without erythema. Throat : buccal mucosa is normal, gums are without significant recession or hypertrophy. Lungs : Equal chest rise bilaterally, no use of accessory muscles, trachea is midline. Cor : Rate and rhythm are normal. Abdomen : Soft, ND, NT, no g/r/m Extremities : No edema, no cyanosis or clubbing, dorsalis pedis pulses are present bilaterally, non-tender to palpation of calves. Upper extremities are normal bilaterally. Back : non-tender to palpation, no CVA tenderness. Neuro : CN II - XII intact, Upper and lower extremities have equal and full strength Data 08/17/22 23:27 08/17/22 10:15 Micro: Microbiology 08/17/22 12:34 Urine Culture - Preliminary Urine,Clean Catch Gram Negative Rods A&P Assessment and plan (1) Melena: (2) Acute blood loss anemia: Plan EGD The risks and benefits of the procedure, including bleeding, infection, intestinal perforation requiring surgery, missed lesion were explained to the patient. The patient is understanding of the risks and wishes to proceed. Coding Level of Care Code Acute Code for [facility] Fwd Diagnoses Melena K92.1 Acute blood loss anemia D62
[2022-08-18] MEDS: EPINEPHrine 1 mg/mL INJ 0.3 MG XX (12:20)
--- NOTE | 2022-08-18 12:20 | PM.PN ---
Subjective Subjective: Patient was seen and examined this morning, underwent EGD today which showed: Gastritis as well as nonbleeding single superficial ulcer in duodenal bulb. Epi was injected, biopsies were taken. H&H so far has remained stable. Medications: Medication Review Details: Generic Name Dose Route Start Last Admin Trade Name Rosa PRN Reason Stop Dose Admin Sodium Chloride 1,000 mls @ 75 ml s/hr 08/17/22 18:45 08/17/22 21:02 Sodium Chloride 0.9% IV 75 mls/hr .[id number] MARIAA Administration Pantoprazole [place]od[place] m 40 mg/ 100 mls @ 20 mls/ hr 08/17/22 18:45 08/18/22 02:11 Sodium Chloride IV 8 mg/hr .Q5H MARIAA 20 mls/hr Administration 8 MG/HR Sodium Chloride 1,000 mls @ 30 ml s/hr 08/18/22 11:00 08/18/22 12:06 Sodium Chloride 0.9% IV 08/19/22 10:59 30 mls/hr .Q24H MARIAA Administration Vitals/I&O/Wt Last Vital Signs Temp 97.2 F L 08/18/22 11:00 Pulse 84 08/18/22 11:00 Resp 18 08/18/22 11:00 BP 139/57 08/18/22 11:00 Pulse Ox 94 08/18/22 11:00 O2 Del Method 08/18/22 11:00 08/17/22 08/18/22 08/18/22 22:59 06:59 14:59 Intake Total 94 / 94 Output Total 200 / 200 200 / 400 Balance -200 / -200 -106 / -306 Weight last 48 hrs Weight 74.843 kg Physical Exam Const: COMMON NORMALS: patient oriented x3 HENMT: COMMON NORMALS: normocephalic and atraumatic HEAD & SCALP: normocephalic and atraumatic Resp: COMMON NORMALS: clear to auscultation bilaterally AUSCULTATION: clear to auscultation bilaterally Cardio: COMMON NORMALS: regular rate, regular rhythm, S1 normal heart sound present, S2 normal heart sound present, No gallops present (Cardio), No murmurs present (Cardio), No rub (Cardio) and Peripheral pulses 2+ throughout RATE: regular rate RHYTHM: regular rhythm HEART SOUNDS: S1 normal heart sound present and S2 normal heart sound present PERIPHERAL PULSES: Peripheral pulses 2+ throughout GI: COMMON NORMALS: Normal to inspection, nondistended, normoactive bowel sounds present, Soft to palpation, non-tender, No hepatosplenomegaly present and no masses AUSCULTATION: Yes normoactive bowel sounds PALPATION: Yes Soft to palpation and Yes No hepatosplenomegaly present RECTAL EXAM: deferred Extremity: COMMON NORMALS: no clubbing, cyanosis or edema and no pedal edema Neuro: COMMON NORMALS: patient oriented x3 Data 08/17/22 23:27 08/17/22 10:15 Micro: Microbiology 08/17/22 12:34 Urine Culture - Preliminary Urine,Clean Catch Gram Negative Rods A&P Assessment and plan (1) Acute upper gastrointestinal bleeding: (2) Abdominal pain: Plan 81F presenting with one week of bloating and flatulence, then abdominal pain over the past 2-3 days with development of pancho today. Suspect symptoms related to UGI bleed , she has a h/o non erosive gastritis Alternate differentials include diverticulitis (reports subjective fever, abdominal pain) will check CT abdomen NPo after midnight for possible UGIE tomorrow Gen/surg consulted from ER HB currently at 12, recheck this evening , hemodynamically stable protonix infusion @ 8mg/hr DVT ppx: SCDs only Attestations Medical Necessity Statement*: Needs to be in hospital for management of GI bleed. Coding Level of Care Code Acute Code for [facility] Fwd Diagnoses Acute upper gastrointestinal bleeding K92.2 Abdominal pain R10.9
--- NOTE | 2022-08-18 15:46 | ANE.PACU2 ---
Inpatient post-anesthesia follow up: Airway intact: Yes Vital signs: Temperature 97.4 F Pulse Rate 78 Respiratory Rate 18 Blood Pressure 164/71 Pulse Oximetry 91 Oxygen Delivery Me thod Room Air Oxygen Flow Rate Fraction of Inspir ed Oxygen Hydration adequate: Yes Nausea and vomiting: No Pain level: 2 Mental status: Baseline
[2022-08-18] MEDS: metoprolol succinate ER (24 HR) 100 mg Tablet 150 MG PO (16:15)
[2022-08-18] MEDS: atorvastatin 40 mg Tablet 20 MG PO (16:16)
[2022-08-18] MEDS: sucralfate 1 gm/10 mL Oral Liq UDC PO ×2 (16:17→19:56)
[2022-08-18] MEDS: pantoprazole 40 mg SDV IVP (19:56)
[2022-08-19 03:07] VITALS: PULSE 60
[2022-08-19 04:00] VITALS: BP 168/67; PULSE 61; RESP 17; TEMP 36.2; O2SAT 92
[2022-08-19] MEDS: pantoprazole 40 mg SDV IVP (06:00)
[2022-08-19] MEDS: sucralfate 1 gm/10 mL Oral Liq UDC PO ×2 (06:00→12:09)
[2022-08-19 08:00] VITALS: BP 138/74; PULSE 61; RESP 17; TEMP 36.6; O2SAT 96
[2022-08-19 09:43] LABS: Basophils % 0.6 %; Eosinophils # 0.3 10^3/uL (0.0-0.8); Hematocrit 38.7 % (37.0-47.0); Hemoglobin 11.9 g/dL (11.5-15.3); Lymphocytes # 1.4 10^3/uL (0.8-4.8); Lymphocytes % 19.7 %; Mean Corpuscular HGB Conc 30.7 g/dL (30.0-36.0); Mean Corpuscular Hemoglobin 25.6 pg (28.0-34.0); Mean Corpuscular Volume 83.2 fl (81-99); Mean Platelet Volume 12.5 fL (7.4-10.4); Monocytes # 0.7 10^3/uL (0.2-0.9); Monocytes % 10.5 %; Neutrophils % 65.1 %; Nucleated Red Blood Cells % 0 %; Platelet Count 218 10^3/cmm (130-400); Red Blood Count 4.65 10^6/uL (4.1-5.3); Red Cell Distribution Width 14.6 % (12.1-15.1); White Blood Count 6.9 10^3/uL (4.0-10.0)
[2022-08-19] MEDS: levothyroxine 100 mcg Tablet PO (10:30)
[2022-08-19] MEDS: amlodipine 10 mg Tablet PO (10:30)
--- NOTE | 2022-08-19 11:55 | P.DS_ITS ---
Discharge Providers Date of Admission: 08/17/22 11:24 Date of Discharge: August 19, 2022 Attending Provider at Admission: Cici Molina MD Attending Provider at Discharge: Sarwat Collins MD Primary Care Provider: Roc Sage DO Diagnoses at Discharge Discharge Diagnosis (1) Acute upper gastrointestinal bleeding: Status: Acute (2) Abdominal pain: Status: Acute Reason for Visit Reason for Visit: black stool Hospital Course Hospital Course HPI : Cici Molina MD 81 year old female with PMH HTN, hypothyroidismpresenting with c/o pain and abdominal bloating over the last 5-7 days. She states that on thursday her ab dominal pain got much worse, was located in the periumbilical area, radiating up into the epigatrsic region. She had been taking simethicone up to 4 times a day with no relief. She felt subjective fever and chiils on thu and sat. Today she had dark tarry bowel movements which made her concerned for bleeding so she presented to the ER. No past h/o GI blee. Clinically diagnosed with GERD in her 30s. Cherry has not recurred since. no hematemesis. Denies any urinary complaints. 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 Vega. No abnormalities were found on colonoscopy except diverticulosis. UGIE revealed a schatzki's ring and non erosive gastritis. H. pylori negative at that time. Hospital course: Patient was admitted for the management of ?Acute upper gastrointestinal bleeding: She was initially kept on Protonix drip, n.p.o. H&H was monitored,CT abdomen pelvis wo con: Showed ?Diverticulosis of the rectosigmoid colon. No changes of acute diverticulitis.?No acute abnormality demonstrated in the abdomen and pelvis. Patient underwent EGD which showed: Gastritis as well as nonbleeding single superficial ulcer in duodenal bulb.? Epi was injected, biopsies were taken. Throughout the hospital stay H&H remained stable, there was no need for PRBC transfusion,she was discharged on p.o. Protonix as well as sucralfate, and was educated on symptoms of bleeding.Overall patient responded well to above medical management and was discharged in stable condition to home, she will continue to follow-up with her PCP as outpatient. Physical Exam Const: COMMON NORMALS: patient oriented x3 HENMT: COMMON NORMALS: normocephalic and atraumatic HEAD & SCALP: normocephalic and atraumatic Resp: COMMON NORMALS: clear to auscultation bilaterally AUSCULTATION: clear to auscultation bilaterally Cardio: COMMON NORMALS: regular rate, regular rhythm, S1 normal heart sound present, S2 normal heart sound present, No gallops present (Cardio), No murmurs present (Cardio), No rub (Cardio) and Peripheral pulses 2+ throughout RATE: regular rate RHYTHM: regular rhythm HEART SOUNDS: S1 normal heart sound present and S2 normal heart sound present PERIPHERAL PULSES: Peripheral pulses 2+ throughout GI: COMMON NORMALS: Normal to inspection, nondistended, normoactive bowel sounds present, Soft to palpation, non-tender, No hepatosplenomegaly present and no masses AUSCULTATION: Yes normoactive bowel sounds PALPATION: Yes Soft to palpation and Yes No hepatosplenomegaly present RECTAL EXAM: deferred Extremity: COMMON NORMALS: no clubbing, cyanosis or edema and no pedal edema Neuro: COMMON NORMALS: patient oriented x3 Discharge Data Studies Completed and Pending Completed Studies During Hospitalization Category Date Time Status CT abdomen pelvis wo con [id number] Routine Cat Scan 08/17/22 18:56 Completed Pathology: Surgical [PTH] Routine Pth 08/18/22 12:42 Completed Pending at discharge Category Date Time Status Urine Culture Stat Lab 08/17/22 12:34 Results Radiology Impressions Abdomen/Pelvis CT 08/17/22 18:56 IMPRESSION: 1. The kidneys are morphologically normal. No nephrolithiasis. No hydronephrosis. No ureteral calculi. No obstructive uropathy. 2. Diverticulosis of the rectosigmoid colon. No changes of acute diverticulitis. 3. No acute abnormality demonstrated in the abdomen and pelvis. 4. There is no interval change from the prior examination. Laboratory Results WBC 6.9 10^3/uL (4.0-10.0) 08/19/22 09:18 RBC 4.65 10^6/uL (4.1-5.3) 08/19/22 09:18 Hgb 11.9 g/dL (11.5-15.3) 08/19/22 09:18 Hct 38.7 % (37.0-47.0) 08/19/22 09:18 MCV 83.2 fl (81-99) 08/19/22 09:18 MCH 25.6 pg (28.0-34.0) L 08/19/22 09:18 MCHC 30.7 g/dL (30.0-36.0) 08/19/22 09:18 RDW 14.6 % (12.1-15.1) 08/19/22 09:18 Plt Count 218 10^3/cmm (130-400) 08/19/22 09:18 MPV 12.5 fL (7.4-10.4) H 08/19/22 09:18 Neut % (Auto) 65.1 % 08/19/22 09:18 Lymph % (Auto) 19.7 % 08/19/22 09:18 [place] % (Auto) 10.5 % 08/19/22 09:18 Eos % (Auto) 4.0 % 08/19/22 09:18 Baso % (Auto) 0.6 % 08/19/22 09:18 Neut # (Auto) 4.50 10^3/uL (1.8-7.7) 08/19/22 09:18 Lymph # (Auto) 1.4 10^3/uL (0.8-4.8) 08/19/22 09:18 [place] # (Auto) 0.7 10^3/uL (0.2-0.9) 08/19/22 09:18 Eos # (Auto) 0.3 10^3/uL (0.0-0.8) 08/19/22 09:18 Baso # (Auto) 0.0 10^3/uL (0.0-0.1) 08/19/22 09:18 Nucleated RBC % (auto) 0 % 08/19/22 09:18 Nucleated RBCs # 0.0 /100WBC 08/19/22 09:18 PT 14.10 SECONDS (12.1-14.9) 08/17/22 10:15 INR 1.05 (0.8-1.2) 08/17/22 10:15 Sodium 137 mmol/L (136-145) 08/17/22 10:15 Potassium 3.4 mmol/L (3.5-5.1) L 08/17/22 10:15 Chloride 97 mmol/L (98-107) L 08/17/22 10:15 Carbon Dioxide 27 mmol/L (22-29) 08/17/22 10:15 Anion Gap 16.4 (5-19) 08/17/22 10:15 BUN 29 mg/dL (8-23) H 08/17/22 10:15 Creatinine 1.2 mg/dL (0.5-0.9) H 08/17/22 10:15 GFR Calculation Not Reportable 08/17/22 10:15 Glucose 125 mg/dL (65-115) H 08/17/22 10:15 Calculated Osmolality 291 mOsm/kg (285-295) 08/17/22 10:15 Lactic Acid 0.7 mmol/L (0.5-2.2) 08/17/22 10:15 Calcium 9.1 mg/dL (8.5-10.5) 08/17/22 10:15 Total Bilirubin 0.3 mg/dL (0.15-1.2) 08/17/22 10:15 AST 14 U/L (0-32) 08/17/22 10:15 ALT 8 U/L (0-33) 08/17/22 10:15 Alkaline Phosphatase 65 U/L (35-105) 08/17/22 10:15 Total Protein 7.1 g/dL (6.6-8.7) 08/17/22 10:15 Albumin 4.0 g/dL (3.5-5.2) 08/17/22 10:15 Globulin 3.1 g/dL (1.3-4.6) 08/17/22 10:15 Lipase 49 U/L (13-60) 08/17/22 10:15 Urine Color Yellow (Yellow) 08/17/22 12:34 Urine Appearance Sl hazy (CLEAR) A 08/17/22 12:34 Urine pH 6 (5-7) 08/17/22 12:34 Ur Specific [place] 1.010 (1.005-1.030) 08/17/22 12:34 Urine Protein Neg (Negative) 08/17/22 12:34 Urine Glucose (UA) Norm (Normal) 08/17/22 12:34 Urine Ketones Negative (Negative) 08/17/22 12:34 Urine Blood 2+ (Negative) H 08/17/22 12:34 Urine Nitrate Negative (Negative) 08/17/22 12:34 Urine Bilirubin Neg (Negative) 08/17/22 12:34 Urine Urobilinogen Norm mg/dL (Negative) 08/17/22 12:34 Ur Leukocyte Esterase Trace (Negative) H 08/17/22 12:34 Urine RBC 0-4 /hpf (0-2) H 08/17/22 12:34 Urine WBC 5-10 /hpf (0-5) H 08/17/22 12:34 Ur Squamous Epith Cells 0-4 /hpf (0-5) H 08/17/22 12:34 Amorphous Sediment Not Reportable 08/17/22 12:34 Urine Bacteria 3+ /hpf (NONE) H 08/17/22 12:34 Blood Type A Positive 08/17/22 10:15 Rho(D) Type Positive 08/17/22 10:15 Antibody Screen Positive 08/17/22 10:15 PEG Antibody Screen Negative 08/17/22 10:15 Antibody Identification Non-Specific Cold Antibody 08/17/22 10:15 Cold Antibody Screen Positive 08/17/22 10:15 Vitals Last Vital Signs Temp 98 F 08/19/22 08:00 Pulse 61 08/19/22 08:00 Resp 17 08/19/22 08:00 BP 138/74 08/19/22 08:00 Pulse Ox 96 08/19/22 08:00 O2 Del Method 08/18/22 20:00 Discharge Plan Discharge Patient Disposition: Home Condition: Stable Prescriptions: New Protonix 40 mg tablet,delayed release (DR/EC) 40 mg PO BID Qty: 60 3RF sucralfate 100 mg/mL Suspension 1 g PO AC&BEDTIME 30 Days Qty: 1000 0RF Continued clonidine HCl 0.2 mg tablet 0.2 mg PO BID PRN (Reason: Blood Pressure) metoprolol succinate 100 mg tablet extended release 24 hr 150 mg PO DAILY@1800 Qty: 135 3RF simvastatin 20 mg tablet 20 mg PO DAILY@1800 aspirin 81 mg Tablet,Delayed Release (Dr/Ec) 81 mg PO QPM meloxicam 15 mg tablet 15 mg PO QPM Vision Formula (with lutein) 1,000 unit-200 mg-60 unit-2 mg Tablet 1 tab PO QAM Rx Instructions: administer after a meal chlorthalidone 50 mg Tablet 50 mg PO DAILY levothyroxine 100 mcg tablet 100 mcg PO DAILY valsartan 320 mg Tablet 320 mg PO DAILY amlodipine 5 mg tablet 10 mg PO DAILY Discharge Orders: Discharge Order (Routine); Ordered 08/19/22 Ordered By: Sarwat Collins Referrals: Roc Sage DO [Primary Care Provider] - 08/21/22 10:40 am Patient Instructions: Sucralfate (By mouth), Pantoprazole (By mouth), Upper Endoscopy (GEN), GI Discharge Instructions, Opioid Safety Discharge Attestations Time Spent in Discharge Care*: less than 30 min Quality Metrics Clinical Quality Measures [ No reported AMI, CVA or VTE this stay] Coding Level of Care Code Acute Code for Chg Fwd Diagnoses Acute upper gastrointestinal bleeding K92.2 Abdominal pain R10.9
--- NOTE | 2022-08-19 13:44 | PC.NURSE ---
Discussed discharge, new medications, continued medications and follow up appointments with patient and friend. Verbalized understanding.
[2022-08-19 13:46] VITALS: BP 138/74; PULSE 61; RESP 17; TEMP 36.6; O2SAT 96
== END 2022-08-19 13:23 | disposition home or self-care (01) | DRG 379 ==
LOC: ER 11:52 → MEDSURG 17:31
PROVIDERS: Surgery; Admitting Provider Student in an Organized Health Care Education/Training Program; Emergency Provider Emergency Medicine; PCP Electrodiagnostic Medicine; Visit Provider Internal Medicine
PROC: 0DJ08ZZ Inspection of Upper Intestinal Tract, Via Natural or Artificial Opening Endoscopic (ICD-10-PCS; CPT 43235; principal; 2022-08-18 12:30)
DX: K26.4 Chronic or unspecified duodenal ulcer with hemorrhage (principal); K22.2 Esophageal obstruction; K44.9 Diaphragmatic hernia without obstruction or gangrene; I10 Essential (primary) hypertension; E03.9 Hypothyroidism, unspecified; K21.9 Gastro-esophageal reflux disease without esophagitis; K57.30 Diverticulosis of large intestine without perforation or abscess without bleeding; K29.70 Gastritis, unspecified, without bleeding; Z79.82 Long term (current) use of aspirin; E78.5 Hyperlipidemia, unspecified; Z85.42 Personal history of malignant neoplasm of other parts of uterus; Z87.891 Personal history of nicotine dependence
CPT/HCPCS: 36415; 43255; 74176; 80053; 81001; 83605; 83690; 85014; 85018; 85025; 85610; 86850; 86870; 86900; 87077; 87086; 87186; 88305; 88342; 96374; 99285; C9113; J0171; J2704; J7030

== ENCOUNTER 2022-08-26 07:31 | Emergency (ER) | payer MEDICARE, MEDICAID, SELFPAY ==
--- NOTE | 2022-08-26 07:38 | W.ED.GENADLT ---
HPI - General Adult General: Chief complaint: Recheck/Abnormal Lab/Rx Stated complaint: BP is low Time Seen by Provider: 08/26/22 07:37 Source: patient Mode of arrival: ambulatory History of Present Illness: 81-year-old female presents emergency room complaining of low blood sugars this morning when she checked her blood pressure this morning was 88/48 she felt a little weak tired she recently had an EGD was found to have H. pylori and started on 6 usual antibiotic series for this. She TOPS taking her simvastatin because of an interaction with one of the antibiotics but otherwise she has been taking all of her oral antihypertensives. She has as needed clonidine but does not taken that in the last 24 hours. Onset (ago): hour(s) Relieving factors: none Exacerbating factors: none Associated symptoms: Deny chest pain, confusion, cough, diaphoresis, decreased appetite, dyspnea, fevers/chills, headache(s), malaise, nausea, rash, palpitations, seizures, short of breath, syncope, vomiting or weakness Treatments prior to arrival: none Review of Systems Const: Denies: fever(s), chills, fatigue, malaise or diaphoresis ENMT: Denies: throat pain, ear or mastoid pain, nasal discharge or nasal congestion Card: Denies: chest pain, palpitations, irregular heart rhythm, edema or syncope Resp: Denies: dyspnea, productive cough or non-productive cough GI: Denies: abdominal pain, nausea or vomiting : Denies: flank pain, difficulty voiding, dysuria, urinary frequency or urinary urgency Skin/Breast: Denies: rash Neuro: Denies: headache(s) or confusion PFSH ED PFSH: Medical History Abdominal pain Acute blood loss anemia Acute upper gastrointestinal bleeding Dyslipidemia GERD (gastroesophageal reflux disease) HTN (hypertension) Melena Recurrent UTI Urinary hesitancy Uterine cancer Surgical History H/O esophagogastroduodenoscopy (08/20/20) Gastritis H/O tubal ligation H/O: hysterectomy History of colonoscopy with polypectomy (08/20/20) Diverticulosis Family History Mother , IN HER 80'S Diabetes Father , IN HIS 80'S Hypertension Social History Smoking and tobacco status: former smoker Alcohol intake: never Marital status: / Current occupational status: retired Current occupation: Retired Physical Exam Const: GENERAL APPEARANCE: cooperative and comfortable ORIENTATION/CONSCIOUSNESS: Yes awake, Yes oriented to person, Yes oriented to place and Yes oriented to time HENMT: COMMON NORMALS: normocephalic, atraumatic and hearing grossly normal bilaterally HEAD & SCALP: normocephalic and atraumatic Resp: COMMON NORMALS: normal respiratory effort, No retractions, No use of accessory muscles and clear to auscultation bilaterally AUSCULTATION: clear to auscultation bilaterally Cardio: COMMON NORMALS: regular rate, regular rhythm and No murmurs present (Cardio) RATE: regular rate RHYTHM: regular rhythm GI: COMMON NORMALS: Soft to palpation and No hepatosplenomegaly present AUSCULTATION: Yes normoactive bowel sounds PALPATION: Yes Soft to palpation, No Tenderness to palpation present (GI), No Guarding due to palpation present (GI) and Yes No hepatosplenomegaly present Extremity: COMMON NORMALS: normal to inspection, capillary refill normal, no clubbing, cyanosis or edema, no calf tenderness and no pedal edema Neuro: SENSORIUM/ORIENTATION: Yes oriented to person, Yes oriented to place and Yes oriented to time Skin: COMMON NORMALS: no rashes or lesions noted GENERAL SKIN EXAM: no rashes or lesions noted Course Vital Signs: Vital signs: Vital Signs Temperature 98.2 F 08/26/22 07:45 Pulse Rate 87 08/26/22 10:59 Respiratory Rate 14 08/26/22 07:45 Blood Pressure 112/44 08/26/22 10:59 Pulse Oximetry 96 08/26/22 10:59 Oxygen Delivery Me thod 08/26/22 09:07 [facility] - General Adult Medical Decision Making Mild acute kidney injury. Patient given fluids blood pressure improved recommend she hold the chlorthalidone for now. Follow-up with her primary care doctor to reevaluate her blood pressure and kidney function within the next week. She may need to decrease to decrease the valsartan dose as well or look at other alternatives that are less likely to be renal toxic. Return if she has further problems Lab Data 08/26/22 07:54 08/26/22 07:54 Laboratory Results WBC 9.8 10^3/uL (4.0-10.0) 08/26/22 07:54 RBC 4.79 10^6/uL (4.1-5.3) 08/26/22 07:54 Hgb 12.4 g/dL (11.5-15.3) 08/26/22 07:54 Hct 39.4 % (37.0-47.0) 08/26/22 07:54 MCV 82.3 fl (81-99) 08/26/22 07:54 MCH 25.9 pg (28.0-34.0) L 08/26/22 07:54 MCHC 31.5 g/dL (30.0-36.0) 08/26/22 07:54 RDW 14.6 % (12.1-15.1) 08/26/22 07:54 Plt Count 273 10^3/cmm (130-400) 08/26/22 07:54 MPV 12.6 fL (7.4-10.4) H 08/26/22 07:54 Neut % (Auto) 67.3 % 08/26/22 07:54 Lymph % (Auto) 15.2 % 08/26/22 07:54 [place] % (Auto) 9.2 % 08/26/22 07:54 Eos % (Auto) 7.4 % 08/26/22 07:54 Baso % (Auto) 0.7 % 08/26/22 07:54 Neut # (Auto) 6.59 10^3/uL (1.8-7.7) 08/26/22 07:54 Lymph # (Auto) 1.5 10^3/uL (0.8-4.8) 08/26/22 07:54 [place] # (Auto) 0.9 10^3/uL (0.2-0.9) 08/26/22 07:54 Eos # (Auto) 0.7 10^3/uL (0.0-0.8) 08/26/22 07:54 Baso # (Auto) 0.1 10^3/uL (0.0-0.1) 08/26/22 07:54 Nucleated RBC % (auto) 0 % 08/26/22 07:54 Nucleated RBCs # 0.0 /100WBC 08/26/22 07:54 Sodium 140 mmol/L (136-145) 08/26/22 07:54 Potassium 3.5 mmol/L (3.5-5.1) 08/26/22 07:54 Chloride 102 mmol/L (98-107) 08/26/22 07:54 Carbon Dioxide 25 mmol/L (22-29) 08/26/22 07:54 Anion Gap 16.5 (5-19) 08/26/22 07:54 BUN 26 mg/dL (8-23) H 08/26/22 07:54 Creatinine 1.7 mg/dL (0.5-0.9) H 08/26/22 07:54 GFR Calculation Not Reportable 08/26/22 07:54 Glucose 104 mg/dL (65-115) 08/26/22 07:54 Calculated Osmolality 295 mOsm/kg (285-295) 08/26/22 07:54 Calcium 9.0 mg/dL (8.5-10.5) 08/26/22 07:54 Troponin T Baseline 24 ng/L (0-10) H 08/26/22 07:54 Troponin T 120 Minute 21.95 ng/L (0-10) H 08/26/22 09:46 Delta Troponin T -2.05 ABS# (0-10) L 08/26/22 09:46 Discharge Plan Discharge Patient Disposition: Home Clinical Impression: HTN (hypertension), Medication side effect Condition: Stable Prescriptions: Discontinued chlorthalidone 50 mg Tablet 50 mg PO QAM No Action amoxicillin 500 mg tablet 1,000 mg PO BID 14 Days Qty: 56 0RF clarithromycin 500 mg tablet 500 mg PO BID 14 Days Qty: 28 0RF Rx Instructions: rx filled 08/22/22 14d/s simvastatin 20 mg tablet 20 mg PO BEDTIME aspirin 81 mg Tablet,Delayed Release (Dr/Ec) 81 mg PO BEDTIME meloxicam 15 mg tablet 15 mg PO BEDTIME levothyroxine 100 mcg tablet 100 mcg PO BEDTIME valsartan 320 mg Tablet 320 mg PO QAM pantoprazole [Protonix] 40 mg tablet,delayed release (DR/EC) 40 mg PO BID Qty: 60 3RF sucralfate 100 mg/mL Suspension 1 g PO AC&BEDTIME 30 Days Qty: 1000 0RF clonidine HCl 0.1 mg Tablet 0.1 mg PO BID PRN (Reason: Blood Pressure) amlodipine 10 mg tablet 10 mg PO QAM metoprolol succinate 100 mg tablet extended release 24 hr 100 mg PO BEDTIME Discharge Orders: Discharge ED (Routine); Ordered 08/26/22 Ordered By: Pa Ball Referrals: oRc Sage, DO [Primary Care Provider] - Discharge Diet: Usual diet Discharge Activity: Resume usual activity Patient Instructions: Opioid Safety, Pain Management Activity Restrictions/Additional Instructions: You are seen today for low blood pressure. Your kidney function is slightly increased recommend that you stop the chlorthalidone continue other previously prescribed blood pressure medications monitor your blood pressure at home with a blood pressure log and check with your doctor within the next week to reevaluate blood pressure and recheck kidney function. Coding Level of Care Code ED Trim Carpenter for Beka Brown
[2022-08-26 07:45] VITALS: BP 114/62; PULSE 70; RESP 14; TEMP 36.8; O2SAT 95; BMI 27.4
--- NOTE | 2022-08-26 07:52 | ECG_ITS ---
[facility] Test Date: 2022-08-26 Pat Name: Silvia Garcia Department: Room: Gender: Female Design Architect: : 1940 Requested By: Pa Garcia Order Number: [id number] Shyanne MD: Ron Davila M.D. Measurements Intervals [place] Rate: 70 P: 123 VA: 202 QRS: 77 QRSD: 95 T: 107 QT: 413 QTc: 446 Interpretive Statements SINUS RHYTHM POSSIBLE LEFT ATRIAL ENLARGEMENT [-0.1mV P-WAVE IN V1/V2] INCOMPLETE RIGHT BUNDLE BRANCH BLOCK [90+ ms QRS DURATION, TERMINAL R IN V1/V2, 40+ ms S IN I/aVL/V4/V5/V6] Compared to ECG 03/03/2022 22:49:37 Incomplete right bundle-branch block now present T-wave abnormality no longer present Electronically Signed On 08-26-2022 11:53:24 CDT by Ron Davila M.D. [id number]
[2022-08-26 08:05] LABS: Basophils # 0.1 10^3/uL (0.0-0.1); Basophils % 0.7 %; Eosinophils # 0.7 10^3/uL (0.0-0.8); Eosinophils % 7.4 %; Hematocrit 39.4 % (37.0-47.0); Hemoglobin 12.4 g/dL (11.5-15.3); Lymphocytes # 1.5 10^3/uL (0.8-4.8); Lymphocytes % 15.2 %; Mean Corpuscular HGB Conc 31.5 g/dL (30.0-36.0); Mean Corpuscular Hemoglobin 25.9 pg (28.0-34.0); Mean Corpuscular Volume 82.3 fl (81-99); Mean Platelet Volume 12.6 fL (7.4-10.4); Monocytes # 0.9 10^3/uL (0.2-0.9); Monocytes % 9.2 %; Neutrophils # 6.59 10^3/uL (1.8-7.7); Neutrophils % 67.3 %; Nucleated Red Blood Cells % 0 %; Platelet Count 273 10^3/cmm (130-400); Red Blood Count 4.79 10^6/uL (4.1-5.3); Red Cell Distribution Width 14.6 % (12.1-15.1); White Blood Count 9.8 10^3/uL (4.0-10.0)
[2022-08-26 08:26] LABS: Troponin(5th) Baseline 24 ng/L (0-10)
[2022-08-26 08:27] LABS: Anion Gap 16.5 (5-19); Blood Urea Nitrogen 26 mg/dL (8-23); Carbon Dioxide 25 mmol/L (22-29); Chloride 102 mmol/L (98-107); Glucose 104 mg/dL (65-115); Osmolality Calculated 295 mOsm/kg (285-295); Potassium 3.5 mmol/L (3.5-5.1); Sodium 140 mmol/L (136-145)
[2022-08-26 09:07] VITALS: BP 112/54; PULSE 67; O2SAT 92
--- NOTE | 2022-08-26 09:37 | ECG_ITS ---
[facility] Test Date: 2022-08-26 Pat Name: Silvia Garcia Department: Room: Gender: Female Forensic Nurse: : 1940 Requested By: Pa Garcia Order Number: [id number] Shyanne MD: Ron Davila M.D. Measurements Intervals [place] Rate: 66 P: 123 PA: 199 QRS: 56 QRSD: 100 T: 93 QT: 432 QTc: 454 Interpretive Statements SINUS RHYTHM POSSIBLE LEFT ATRIAL ENLARGEMENT [-0.1mV P-WAVE IN V1/V2] INCOMPLETE RIGHT BUNDLE BRANCH BLOCK [90+ ms QRS DURATION, TERMINAL R IN V1/V2, 40+ ms S IN I/aVL/V4/V5/V6] Compared to ECG 08/26/2022 07:52:48 NO CHANGES Electronically Signed On 08-26-2022 11:54:34 CDT by Ron Davila M.D. [id number]
[2022-08-26] MEDS: sodium chloride 0.9% 1,000 ML 999 ML IV (09:49)
[2022-08-26 10:12] LABS: Troponin 5 2HR 21.95 ng/L (0-10)
[2022-08-26 10:13] LABS: Troponin 5 2HR Delta -2.05 ABS# (0-10)
[2022-08-26 10:59] VITALS: BP 112/44; PULSE 87; O2SAT 96
== END 2022-08-26 11:01 | disposition home or self-care (01) ==
PROVIDERS: Emergency Provider Family Medicine; PCP Electrodiagnostic Medicine
DX: I10 Essential (primary) hypertension (principal); T50.2X5A Adverse effect of carbonic-anhydrase inhibitors, benzothiadiazides and other diuretics, initial encounter; Z79.82 Long term (current) use of aspirin; E78.5 Hyperlipidemia, unspecified; Z85.42 Personal history of malignant neoplasm of other parts of uterus; Z87.891 Personal history of nicotine dependence
CPT/HCPCS: 36415; 80048; 84484; 85025; 93005; 96360; 99285; J7030

== ENCOUNTER → 2022-09-03 16:44 | Outpatient (BNVA) | payer MEDICARE, MEDICAID, SELFPAY | PROVIDERS: PCP Electrodiagnostic Medicine; Visit Provider Surgery | DX: K27.9 Peptic ulcer, site unspecified, unspecified as acute or chronic, without hemorrhage or perforation (principal); B96.81 Helicobacter pylori [H. pylori] as the cause of diseases classified elsewhere | CPT/HCPCS: 99212 ==

== ENCOUNTER 2022-11-07 14:14 | Emergency (ER) | payer MEDICARE, SELFPAY ==
[2022-11-07 14:30] VITALS: BP 137/67; PULSE 91; RESP 14; TEMP 36.8; O2SAT 95
[2022-11-07 15:21] LABS: Basophils % 0.4 %; Eosinophils # 0.2 10^3/uL (0.0-0.8); Eosinophils % 2.1 %; Hematocrit 39.4 % (37.0-47.0); Hemoglobin 12.5 g/dL (11.5-15.3); Lymphocytes # 1.1 10^3/uL (0.8-4.8); Lymphocytes % 16.2 %; Mean Corpuscular HGB Conc 31.7 g/dL (30.0-36.0); Mean Corpuscular Volume 81.9 fl (81-99); Monocytes # 1.2 10^3/uL (0.2-0.9); Monocytes % 16.3 %; Neutrophils # 4.55 10^3/uL (1.8-7.7); Neutrophils % 64.7 %; Nucleated Red Blood Cells % 0 %; Platelet Count 209 10^3/cmm (130-400); Red Blood Count 4.81 10^6/uL (4.1-5.3); Red Cell Distribution Width 14.1 % (12.1-15.1)
[2022-11-07 15:39] LABS: Anion Gap 15.2 (5-19); Blood Urea Nitrogen 14 mg/dL (8-23); Calcium 9.1 mg/dL (8.5-10.5); Carbon Dioxide 28 mmol/L (22-29); Chloride 94 mmol/L (98-107); Glucose 103 mg/dL (65-115); Osmolality Calculated 279 mOsm/kg (285-295); Potassium 3.2 mmol/L (3.5-5.1); Sodium 134 mmol/L (136-145)
--- NOTE | 2022-11-07 16:18 | ED_ITS ---
HPI - GI Bleed General: Chief complaint: GI Bleed Stated complaint: black diarhea, fever Time Seen by Provider: 11/07/22 16:17 History of Present Illness: Ms. Garcia is an 82-year-old lady with history of GERD, history of GI bleed secondary to bleeding ulcer presenting to the emergency department for concern over recurrent GI bleed. She notes onset of symptoms with diarrhea 3 days ago without known specific provoking event. Nausea but no vomiting. No associated abdominal pain. She does endorse nightly chills which at times have become severe. Overall course of symptoms has persisted. She had an episode of severe chills earlier today and associated with diarrhea that she could not make it to the bathroom for that was black. No other specific changes in health, exacerba ting, or alleviating factors identified. Onset (ago): day(s) Severity: moderate Associated symptoms: Reports chills, malaise, nausea and other Review of Systems General: Reports: 10 or more systems reviewed and unremarkable except in HPI and below Const: Reports: chills and malaise GI: Reports: nausea PFSH ED PFSH: Medical History Abdominal pain Acute blood loss anemia Acute upper gastrointestinal bleeding Dyslipidemia GERD (gastroesophageal reflux disease) HTN (hypertension) Melena Recurrent UTI Urinary hesitancy Uterine cancer Surgical History H/O esophagogastroduodenoscopy (08/20/20) Gastritis H/O tubal ligation H/O: hysterectomy History of colonoscopy with polypectomy (08/20/20) Diverticulosis Family History Mother , IN HER 80'S Diabetes Father , IN HIS 80'S Hypertension Social History Smoking and tobacco status: former smoker Alcohol intake: never Marital status: / Current occupational status: retired Current occupation: Retired Physical Exam Const: COMMON NORMALS: alert GENERAL APPEARANCE: cooperative and well developed HENMT: COMMON NORMALS: normocephalic and atraumatic HEAD & SCALP: normocephalic and atraumatic THROAT: posterior oropharynx normal Eye: COMMON NORMALS: conjunctivae normal CONJUNCTIVA: Yes conjunctivae normal SCLERA: sclerae normal Neck/C-Spine: COMMON NORMALS: supple GENERAL: Yes trachea midline Resp: COMMON NORMALS: clear to auscultation bilaterally EFFORT & INSPECTION: Yes able to speak in complete sentences AUSCULTATION: clear to auscultation bilaterally Cardio: COMMON NORMALS: regular rate and regular rhythm RATE: regular rate RHYTHM: regular rhythm GI: COMMON NORMALS: Soft to palpation PALPATION: Yes Soft to palpation, Yes Tenderness to palpation present (GI), No Guarding due to palpation present (GI) and No Rigid due to palpation OTHER: Rectal exam performed with marionette performer present, guaiac negative. Extremity: GENERAL: Yes normal exam except as noted and No edema Neuro: COMMON NORMALS: moves all extremities SENSORIUM/ORIENTATION: Yes alert and No Orientation impaired Psych: COMMON NORMALS: mental status grossly normal and Normal thought process present THOUGHT PROCESS: Normal thought process present Course Vital Signs: Vital signs: Vital Signs Temperature 98.2 F 11/07/22 14:30 Pulse Rate 96 11/07/22 18:33 Respiratory Rate 14 11/07/22 14:30 Blood Pressure 150/72 11/07/22 18:33 Pulse Oximetry 96 11/07/22 18:33 Oxygen Delivery Me thod Room Air 11/07/22 18:00 MDM - GI Bleed Medical Decision Making 82-year-old female presenting with concern over possible GI bleed. Exam as above. Patient is nontoxic. Abdominal tenderness without evidence of acute perez rgical abdomen. Labs with normal hemoglobin, no leukocytosis, normal white blood cell count. Metabolic panel with some evidence of dehydration and hypokalemia. CT demonstrates colitis. Incidental findings noted and discussed with the patient. Patient denies right upper quadrant tenderness and this is not where she is tender on clinical exam. Patient treated with potassium replenishment and feels improved. Plan to treat for colitis with need for outpatient further testing discussed with patient. The results of ED evaluation were discussed with the patient including prescriptions and/or symptomatic cares (if applicable) including appropriate and responsible use, followup plan, and return precautions. The patient verbalized understanding and felt safe for discharge. Medical Records I reviewed the patient's medical records. Lab Data I reviewed the patient's lab results. 11/07/22 15:13 11/07/22 15:13 Radiology Impressions Abdomen/Pelvis CT 11/07/22 17:00 IMPRESSION: 1. Possible gallbladder wall thickening along the inferior lateral aspect, further evaluation with ultrasound advised, finding is somewhat concerning for a mass or perhaps an evolving cholecystitis. Finding best seen series 6, image 13. 2. Constipation. 3. Left colon wall thickening may reflect a colitis. 4. Constipation. 5. Right middle lobe 8.7 mm pulmonary nodule, somewhat more prominent to prior exam from 07/04/2020, further evaluation with dedicated nonemergent chest CT advised. 6. Coronary artery atherosclerotic calcifications. 7. Hepatic steatosis. 8. Small is hiatal hernia. Laboratory Results WBC 7.0 10^3/uL (4.0-10.0) 11/07/22 15:13 RBC 4.81 10^6/uL (4.1-5.3) 11/07/22 15:13 Hgb 12.5 g/dL (11.5-15.3) 11/07/22 15:13 Hct 39.4 % (37.0-47.0) 11/07/22 15:13 MCV 81.9 fl (81-99) 11/07/22 15:13 MCH 26.0 pg (28.0-34.0) L 11/07/22 15:13 MCHC 31.7 g/dL (30.0-36.0) 11/07/22 15:13 RDW 14.1 % (12.1-15.1) 11/07/22 15:13 Plt Count 209 10^3/cmm (130-400) 11/07/22 15:13 MPV 12.0 fL (7.4-10.4) H 11/07/22 15:13 Neut % (Auto) 64.7 % 11/07/22 15:13 Lymph % (Auto) 16.2 % 11/07/22 15:13 [place] % (Auto) 16.3 % 11/07/22 15:13 Eos % (Auto) 2.1 % 11/07/22 15:13 Baso % (Auto) 0.4 % 11/07/22 15:13 Neut # (Auto) 4.55 10^3/uL (1.8-7.7) 11/07/22 15:13 Lymph # (Auto) 1.1 10^3/uL (0.8-4.8) 11/07/22 15:13 [place] # (Auto) 1.2 10^3/uL (0.2-0.9) H 11/07/22 15:13 Eos # (Auto) 0.2 10^3/uL (0.0-0.8) 11/07/22 15:13 Baso # (Auto) 0.0 10^3/uL (0.0-0.1) 11/07/22 15:13 Nucleated RBC % (auto) 0 % 11/07/22 15:13 Nucleated RBCs # 0.0 /100WBC 11/07/22 15:13 Sodium 134 mmol/L (136-145) L 11/07/22 15:13 Potassium 3.2 mmol/L (3.5-5.1) L 11/07/22 15:13 Chloride 94 mmol/L (98-107) L 11/07/22 15:13 Carbon Dioxide 28 mmol/L (22-29) 11/07/22 15:13 Anion Gap 15.2 (5-19) 11/07/22 15:13 BUN 14 mg/dL (8-23) 11/07/22 15:13 Creatinine 1.3 mg/dL (0.5-0.9) H 11/07/22 15:13 GFR Calculation Not Reportable 11/07/22 15:13 Glucose 103 mg/dL (65-115) 11/07/22 15:13 Calculated Osmolality 279 mOsm/kg (285-295) L 11/07/22 15:13 Calcium 9.1 mg/dL (8.5-10.5) 11/07/22 15:13 Discharge Plan Discharge Patient Disposition: Home Clinical Impression: Colitis, Abnormal CT scan, gallbladder, Pulmonary nodule, Hypokalemia, Dehydration, mild Condition: Stable Prescriptions: New amoxicillin-pot clavulanate 875-125 mg tablet 1 tab PO BID Qty: 20 0RF No Action amoxicillin 500 mg tablet 1,000 mg PO BID 14 Days Qty: 56 0RF clarithromycin 500 mg tablet 500 mg PO BID 14 Days Qty: 28 0RF Rx Instructions: rx filled 08/22/22 14d/s simvastatin 20 mg tablet 20 mg PO BEDTIME aspirin 81 mg Tablet,Delayed Release (Dr/Ec) 81 mg PO BEDTIME meloxicam 15 mg tablet 15 mg PO BEDTIME levothyroxine 100 mcg tablet 100 mcg PO BEDTIME valsartan 320 mg Tablet 320 mg PO QAM pantoprazole [Protonix] 40 mg tablet,delayed release (DR/EC) 40 mg PO BID Qty: 60 3RF clonidine HCl 0.1 mg Tablet 0.1 mg PO BID PRN (Reason: Blood Pressure) amlodipine 10 mg tablet 10 mg PO QAM metoprolol succinate 100 mg tablet extended release 24 hr 100 mg PO BEDTIME Discharge Orders: Discharge ED (Routine); Ordered 11/07/22 Ordered By: Aly Rene Referrals: Roc Sage, [Primary Care Provider] - Discharge Diet: Advance as tolerated and Clear Liquid Discharge Activity: Increase activity as tolerated Patient Instructions: Constipation (ED), Pulmonary Nodules (ED), Colitis (ED) Activity Restrictions/Additional Instructions: Thank you for visiting the emergency department. You were seen and evaluated for fever and diarrhea. The most likely cause of your symptoms is colitis. You were also found to have mild dehydration. Please ensure that you are staying hydrated and I will prescribe antibiotics. Please follow-up with your primary care provider. As discussed you do have abnormal findings on CT scan which require follow-up. Your primary care provider should arrange for a gallbladder ultrasound as well as a CT scan of your chest. Return to the emergency department for uncontrolled symptoms, right upper quadrant abdominal pain, failure to improve, blood in stool, or anything else that you are concerned about and feel needs emergency department evaluation. Coding Level of Care Code ED Full Stack Software Developer for Beka Brown
[2022-11-07 16:33] VITALS: BP 147/79; PULSE 80; O2SAT 92
--- NOTE | 2022-11-07 17:00 | CTR_ITS ---
PROCEDURE INFORMATION: Exam: CT Abdomen And Pelvis With Contrast Exam date and time: 11/07/2022 5:39 PM Age: 82 years old Clinical indication: Other: Bloody diarrhea; Additional info: Chills, diarrhea, ? colitis TECHNIQUE: Imaging protocol: Computed tomography of the abdomen and pelvis with contrast. Radiation optimization: All CT scans at this facility use at least one of these dose optimization techniques: automated exposure control; mA and/or kV adjustment per patient size (includes targeted exams where dose is matched to clinical indication); or iterative reconstruction. Contrast material: OMNIPAQUE 350; Contrast volume: 100 ml; Contrast route: INTRAVENOUS (IV); REPORTING DATA: Count of CT and Cardiac NM exams in prior 12 months: This patient has received [address] and 0 known cardiac nuclear medicine studies in the 12 months prior to the current study. COMPARISON: CT abdomen pelvis wo con [id number] 08/17/2022 10:38 PM RADIATION DOSE METRICS: Total DLP (mGy-cm): 585.63 FINDINGS: Lungs: Right middle lobe 8.7 mm pulmonary nodule, somewhat more prominent to prior exam from 07/04/2020, further evaluation with dedicated nonemergent chest CT advised. Coronary arteries: Coronary artery atherosclerotic calcifications. Diaphragm: Small is hiatal hernia. Liver: Hepatic steatosis. Gallbladder and bile ducts: Possible gallbladder wall thickening along the inferior lateral aspect, further evaluation with ultrasound advised, finding is somewhat concerning for a mass or perhaps an evolving cholecystitis. Finding best seen series 6, image 13. Pancreas: Normal. No ductal dilation. Spleen: Normal. No splenomegaly. Adrenal glands: Normal. No mass. Kidneys and ureters: Normal. No hydronephrosis. Stomach and bowel: Constipation. Left colon wall thickening may reflect a colitis. Constipation. Appendix: No evidence of appendicitis. Intraperitoneal space: Unremarkable. No free air. No significant fluid collection. Vasculature: Unremarkable. No abdominal aortic aneurysm. Lymph nodes: Unremarkable. No enlarged lymph nodes. Urinary bladder: Unremarkable as visualized. Reproductive: Unremarkable as visualized. Bones/joints: Unremarkable. No acute fracture. Soft tissues: Unremarkable. CT/CT abdomen pelvis w con* [id number] IMPRESSION: 1. Possible gallbladder wall thickening along the inferior lateral aspect, further evaluation with ultrasound advised, finding is somewhat concerning for a mass or perhaps an evolving cholecystitis. Finding best seen series 6, image 13. 2. Constipation. 3. Left colon wall thickening may reflect a colitis. 4. Constipation. 5. Right middle lobe 8.7 mm pulmonary nodule, somewhat more prominent to prior exam from 07/04/2020, further evaluation with dedicated nonemergent chest CT advised. 6. Coronary artery atherosclerotic calcifications. 7. Hepatic steatosis. 8. Small is hiatal hernia.
[2022-11-07 17:30] VITALS: BP 152/87; PULSE 99; O2SAT 90
[2022-11-07] MEDS: iohexol 350 mg/mL 500 mL Btl (per mL) IV (17:45)
[2022-11-07 18:00] VITALS: BP 150/72; PULSE 97; O2SAT 95
[2022-11-07] MEDS: potassium chloride ER 20 mEq Tablet 40 MEQ PO (18:10)
[2022-11-07 18:33] VITALS: BP 150/72; PULSE 96; O2SAT 96
== END 2022-11-07 18:35 | disposition home or self-care (01) ==
PROVIDERS: Emergency Provider Emergency Medicine; PCP Electrodiagnostic Medicine
DX: K52.9 Noninfective gastroenteritis and colitis, unspecified (principal); E86.0 Dehydration; E87.6 Hypokalemia; R93.3 Abnormal findings on diagnostic imaging of other parts of digestive tract; R91.8 Other nonspecific abnormal finding of lung field
CPT/HCPCS: 36415; 74177; 80048; 85025; 99285; Q9967

== ENCOUNTER → 2022-12-04 14:33 | Outpatient (BNVA) | payer MEDICARE, SELFPAY | PROVIDERS: PCP Electrodiagnostic Medicine; Visit Provider Nurse Practitioner Family | DX: L57.0 Actinic keratosis (principal); L57.8 Other skin changes due to chronic exposure to nonionizing radiation; L81.4 Other melanin hyperpigmentation; D22.5 Melanocytic nevi of trunk; Z71.89 Other specified counseling; L85.3 Xerosis cutis; L82.1 Other seborrheic keratosis | CPT/HCPCS: 17000; 17003; 99213 ==

== ENCOUNTER 2022-12-22 15:06 | Outpatient (CLI) | payer MEDICARE, SELFPAY ==
--- NOTE | 2022-12-22 15:19 | CTR_ITS ---
PROCEDURE INFORMATION: Exam: CT Chest With Contrast; Diagnostic Exam date and time: 12/22/2022 4:22 PM Age: 82 years old Clinical indication: Condition or disease; Lung condition and disease; Pulmonary nodule, solitary; Patient HX: HX of ovarian cancer; Additional info: Lung nodule TECHNIQUE: Imaging protocol: Diagnostic computed tomography of the chest with contrast. Radiation optimization: All CT scans at this facility use at least one of these dose optimization techniques: automated exposure control; mA and/or kV adjustment per patient size (includes targeted exams where dose is matched to clinical indication); or iterative reconstruction. Contrast material: OMNI 350; Contrast volume: 95 ml; Contrast route: INTRAVENOUS (IV); REPORTING DATA: Count of CT and Cardiac NM exams in prior 12 months: This patient has received 2 known CTs and 0 known cardiac nuclear medicine studies in the 12 months prior to the current study. COMPARISON: 1. CT chest w con* [id number] 10/18/2020 8:[address] chest w con* [id number] 04/23/2020 12:[address] angio chest PE protcl [id number] 06/22/2018 8:21 AM RADIATION DOSE METRICS: Total DLP (mGy-cm): 202.58 FINDINGS: Lungs: No consolidation. Mild bibasilar linear scarring versus atelectasis. Mildly increased size of multiple right lower lung nodules compared to May 2018. Index right middle lobe nodule on axial image 38 of series 4 measures 11 x 11 x 8 mm, previously 8 x 7 x 6 mm in May 2018. Right lower lobe nodule on axial image 39 of series 4 measures 8 x 8 x 7 mm, previously 7 x 5 x 5 mm in 2019. Additional right middle lobe nodule on axial image 41 of series 4 measures 7 x 7 x 7 mm, previously 6 x 4 x 4 mm in 2019. Stable left lower lobe calcified nodularity. No new pulmonary nodules. Pleural spaces: Unremarkable. No pneumothorax. No pleural effusion. Heart: Heavy mitral annular calcification. Left atrial enlargement measuring 6.9 x 5.0 cm in axial dimension. Coronary arteries: Moderate coronary artery calcification. Lymph nodes: No enlarged lymph nodes. Vasculature: Moderate systemic atherosclerotic calcification without aortic aneurysm. Bones/joints: No acute fracture. Mild degenerative changes along the spine. Soft tissues: Unremarkable. CT/CT chest w con* [id number] IMPRESSION: 1. Increased size of multiple right lower lung nodules compared to May 2018. No new nodules. 2. Heavy mitral annular calcification with left atrial enlargement. 3. Atherosclerosis with moderate coronary artery calcification.
[2022-12-22] MEDS: iohexol 350 mg/mL 500 mL Btl (per mL) IV (16:17)
== END 2022-12-22 15:07 | disposition home or self-care (01) ==
PROVIDERS: PCP Electrodiagnostic Medicine; Visit Provider Electrodiagnostic Medicine
DX: R91.8 Other nonspecific abnormal finding of lung field (principal); I34.81 Nonrheumatic mitral (valve) annulus calcification; I25.10 Atherosclerotic heart disease of native coronary artery without angina pectoris; Z85.43 Personal history of malignant neoplasm of ovary; R91.1 Solitary pulmonary nodule
CPT/HCPCS: 71260; Q9967

== ENCOUNTER → 2023-01-20 14:16 | Outpatient (BNVA) | payer MEDICARE, SELFPAY | PROVIDERS: PCP Electrodiagnostic Medicine; Visit Provider Internal Medicine Pulmonary Disease | DX: R91.8 Other nonspecific abnormal finding of lung field (principal); R06.00 Dyspnea, unspecified; Z87.891 Personal history of nicotine dependence; R06.02 Shortness of breath | CPT/HCPCS: 36415; 82785; 86003; 99204 ==

== ENCOUNTER 2023-01-28 08:56 | Outpatient (CLI) | payer MEDICARE, SELFPAY ==
--- NOTE | 2023-01-28 09:01 | USCV_ITS ---
Silvia Garcia Age: 82 Gender: F : 1940 Exam Date: 01/28/2023 09:15 Ordering Phys: Roc Sage DO Technologist: Beatrice Workman Exam Location: [facility] Indication: SYSTOLIC MURMUR BP: 140 / 67 HR: 54 Rhythm: Sinus Technical Quality: Good MEASUREMENTS (Male / Female) Normal Values 2D ECHO LV Diastolic Diameter PLAX 4.4 cm 4.2 - 5.9 / 3.9 - 5.3 cm LV Systolic Diameter PLAX 2.3 cm LV Chamber Size 3.5 cm IVS Diastolic Thickness 1.0 cm 0.6 - 1.0 / 0.6 - 0.9 cm IVS Systolic Thickness 1.1 cm LVPW Diastolic Thickness 1.2 cm 0.6 - 1.0 / 0.6 - 0.9 cm LVPW Systolic Thickness 1.3 cm RV Chamber Size 3.1 cm LVOT Diameter 2.0 cm LV Ejection Fraction 2D Teich 79.3 % LV Ejection Fraction MOD 2C 58.8 % LV Ejection Fraction 2C AL 57.5 % LA Diameter 3.8 cm LA Width 3.2 cm LA Height 3.3 cm RA Width 2.4 cm RA Height 3.3 cm Aorta at Sinotubular Diameter 2.5 cm IVC Diameter 1.3 cm M-MODE Aortic Annulus Diameter 3.1 cm LA Ao Ratio MM 1.6 MV E Point Septal Separation 0.3 cm DOPPLER AV Peak Velocity 175.0 cm/s LVOT Peak Velocity 114.0 cm/s AV Area Cont Eq vti 2.3 cm squared AV Area Cont Eq pk 2.1 cm squared MV Peak Velocity 162.0 cm/s MV Area PHT 2.3 cm squared Mitral E to A Ratio 0.8 MV E' Velocity 53.0 cm/s Mitral E to MV E' Ratio 15.9 Mitral E to LV E' Lateral Ratio 13.7 Mitral E to LV E' Septal Ratio 18.9 TR Peak Velocity 262.1 cm/s TR Peak Gradient 27.5 mmHg TR Mean Velocity 184.9 cm/s TR Mean Gradient 16.7 mmHg TR Velocity Time Integral 72.2 cm TV Peak E Velocity 53.0 cm/s Right Atrial Pressure 3.0 mmHg Pulmonary Artery Systolic Pressu 30.5 mmHg RV Acceleration Time 0.2 s RV Ejection Time 0.4 s RV AcT/ET 0.5 FINDINGS Left Ventricle Normal left ventricular size and systolic function, EF 60 %. No regional wall motion abnormalities. Grade I/IV diastolic dysfunction (abnormal relaxation filling pattern), normal to mildly elevated filling pressures. Right Ventricle Normal right ventricular size and systolic function. Right Atrium Normal right atrial size. Left Atrium Mildly increased left atrial size. Mitral Valve Moderate mitral annular calcification. Mild mitral valve regurgitation. Aortic Valve Thickened aortic valve. Tricuspid Valve Trace to mild tricuspid valve regurgitation. Pulmonic Valve Pulmonic valve not well visualized. Pericardium Normal pericardium without effusion. Aorta Normal ascending aorta dimension. IVC The inferior vena cava appears normal. CONCLUSIONS Normal left ventricular size and systolic function, EF 60 %. No regional wall motion abnormalities. Grade I/IV diastolic dysfunction (abnormal relaxation filling pattern), normal to mildly elevated filling pressures. Mildly increased left atrial size. Moderate mitral annular calcification. Thickened aortic valve. Trace to mild tricuspid valve regurgitation. Mild mitral regurgitation Estimated pulmonary artery peak systolic pressure 31 mm Hg There is no pericardial effusion. There are no intracardiac masses. Compared to the previous study from 11/21/2021, there may not be a significant change Dr Luis Hinojosa MD FACC (Electronically Signed) Final Date: 28 January 2023 13:52 S
== END 2023-01-28 08:57 | disposition home or self-care (01) ==
PROVIDERS: PCP Electrodiagnostic Medicine; Visit Provider Electrodiagnostic Medicine
DX: R01.1 Cardiac murmur, unspecified (principal); I34.81 Nonrheumatic mitral (valve) annulus calcification; I34.0 Nonrheumatic mitral (valve) insufficiency; I35.8 Other nonrheumatic aortic valve disorders; I51.89 Other ill-defined heart diseases
CPT/HCPCS: 93306

== ENCOUNTER 2023-01-30 14:16 | Outpatient (CLI) | payer MEDICARE, SELFPAY ==
--- NOTE | 2023-01-30 14:21 | CT_ITS ---
WS: [id number] CT NECK TECHNIQUE: Contrast-enhanced CT of the neck with coronal and sagittal reformatted images. CLINICAL INFORMATION: MASS OF NECK COMPARISON: CT 04/23/20. DLP: 163.[address] scans at [facility] use at least one of these dose optimization techniques: automated e xposure control; mA and/or kV adjustment per patient size (includes targeted exams where dose is matc hed to clinical indication); or iterative reconstruction. FINDINGS: Mastoid air cells are well aerated. Paranasal sinuses are well aerated. Normal parapharyngeal fat. No rmal posterior nasopharynx. Tongue base appears normal. No evidence of supraglottic or glottic mass. Normal subglottic airway. Lung apices are well aerated. No cervical lymphadenopathy. Mild spondylitic changes cervical spine. S light anterolisthesis C4 on C5. Disc narrowing worse at C5-C6 and C6-C7. Normal partially visualized intracranial contents. IMPRESSION: 1. No evidence of neck mass or drainable fluid collection. 2. No cervical lymphadenopathy. 3. No evidence of supraglottic or glottic mass. 4. Normal salivary glands. 5. No other suspicious findings.
[2023-01-30 15:22] LABS: Blood Urea Nitrogen 25 mg/dL (8-23)
[2023-01-30] MEDS: iohexol 350 mg/mL 500 mL Btl (per mL) IV (15:30)
== END 2023-01-30 14:17 | disposition home or self-care (01) ==
LOC: RAD 14:16
PROVIDERS: PCP Electrodiagnostic Medicine; Visit Provider Electrodiagnostic Medicine
DX: R22.1 Localized swelling, mass and lump, neck (principal)
CPT/HCPCS: 70491; 82565; 84520; Q9967

== ENCOUNTER 2023-02-07 05:36 | Outpatient (CLI) | payer MEDICARE, SELFPAY ==
--- NOTE | 2023-02-07 09:30 | PETR_ITS ---
PROCEDURE INFORMATION: Exam: PET/CT Skull Base to Mid-thigh Exam date and time: 02/07/2023 10:27 AM Age: 82 years old Clinical indication: Abnormal findings; 1. Increased size of multiple right lower lung nodules compared to 2018. No new nodules. Patient HX: HX of ovarian cancer; Additional info: Lung cancer screening LABS AND CLINICAL REPORTS: Glucose: 98 mg/dl Treatment strategy for malignancy (PET staging): Initial Staging (PI) TECHNIQUE: Imaging protocol: Following at least four-hour fasting and following the injection of radiopharmaceutical, low dose CT images were obtained. Then, PET images were obtained. Attenuation corrected images were constructed using the CT scan. Fused images of PET and CT were reviewed. The standardized uptake values (SUV) reported below are maximum values within a region of interest, expressed in gm/ml. Exam includes orbital meatal line to mid-thigh. Radiopharmaceutical: 12.32 mCi F-18 FDG (Fluorodeoxyglucose), IV. Time of imaging post radiopharmaceutical administration: 1 hour Injection site: Left antecubital COMPARISON: CT neck w con* [id number] 01/30/2023 3:27 PM FINDINGS: Brain: Visualized brain has normal physiologic uptake. Pharynx: No abnormal uptake. Larynx: No abnormal uptake. Lungs, pleura and trachea: A previously described solid anteromedial right middle lobe nodule is unchanged in size measuring approximately 1 cm in diameter in the axial plane, allowing for slight differences in measurement technique between the current and prior exam. This nodule demonstrates low-level uptake, SUV max 3.1. Similar size of an inferior right middle lobe solid nodule on series 3, image 72 measuring approximately 6 mm, and similar solid anterior right lower lobe nodule measuring approximately 8 mm on series 3 image 67. These smaller nodules are not radiotracer avid. Bandlike areas of streaky density in both lungs are compatible with atelectasis or scarring. Heart: Normal physiologic uptake. Mitral annular calcification is present. Mediastinal space: No abnormal uptake. Liver: No abnormal uptake. Gallbladder and bile ducts: No abnormal uptake. Pancreas: No abnormal uptake. Spleen: No abnormal uptake. Adrenal glands: No abnormal uptake. Kidneys and ureters: Normal physiologic uptake. Stomach and bowel: No abnormal uptake. There are scattered colonic diverticula. Vasculature: No abnormal uptake. Diffuse atherosclerotic changes are present. Lymph nodes: No abnormal uptake. No lymphadenopathy in the head, neck, chest, abdomen, pelvis, and extremities. Bones/joints: No abnormal uptake in the visualized axial and appendicular skeleton. Diffuse mild degenerative vertebral body spondylosis is present. Soft tissues: No abnormal uptake in the visualized head, neck, chest, abdomen, pelvis, and extremities. METRICS: Mediastinal blood pool: SUV max 2.8 PET/PET [facility] SUBSEQ [id number] IMPRESSION: 1. Similar size and number of right-sided noncalcified pulmonary nodules compared with 12/22/2022. The dominant nodule in the right middle lobe demonstrates low-level activity (SUV max 3.1) which is slightly greater than mediastinal blood pool activity. A malignant etiology cannot be excluded particularly given the history of ovarian cancer. This nodule and the additional smaller right-sided pulmonary nodules are somewhat suboptimally characterized by PET-CT secondary to their small size. 2. Additional nonurgent findings as detailed above.
== END 2023-02-07 05:37 | disposition home or self-care (01) ==
LOC: RAD 02-09 05:36
PROVIDERS: PCP Electrodiagnostic Medicine; Visit Provider Internal Medicine Pulmonary Disease
DX: R91.1 Solitary pulmonary nodule (principal); R91.8 Other nonspecific abnormal finding of lung field; Z85.43 Personal history of malignant neoplasm of ovary
CPT/HCPCS: 78815; A9552

== ENCOUNTER 2023-02-17 15:29 | Observation (INO) | payer MEDICARE, SELFPAY ==
[2023-02-16 11:38] VITALS: BMI 26.6
[2023-02-17] VITALS (53 sets, daily range): BP systolic 126–175; BP diastolic 55–105; PULSE 57–86; RESP 13–36; TEMP 36.1–36.4; O2SAT 90–98; BMI 26.6
--- NOTE | 2023-02-17 08:17 | CT_ITS ---
WS: [id number] CT chest ION (PULM ONLY) [id number] HISTORY: For bronchoscopic biopsy purposes TECHNIQUE: Axial imaging. All CT scans at [facility] use at least one of these dose optimizati on techniques: automated exposure control; mA and/or kV adjustment per patient size (includes targete d exams where dose is matched to clinical indication); or iterative reconstruction. CONTRAST: None DLP: 307.26 mGy COMPARISON: 12/22/2022 Well-circumscribed nodules are noted in the RIGHT middle and RIGHT upper lobes. Largest nodule in the RIGHT upper lobe medially located with a maximal diameter of 12 mm. 8 mm nodule in the RIGHT middle lobe. Additional smaller nodule in the RIGHT middle lobe. No pneumothorax or lobar collapse. Mild atherosclerosis aorta. Mild pulmonary hypertension. Coronary artery calcifications. Spiculated mass in the LEFT breast is reidentified. This was not positive on a prior PET/CT. IMPRESSION: 1. Reidentified are the RIGHT upper and RIGHT middle lobe pulmonary nodules. 2. Spiculated mass in the LEFT breast. Recommend follow-up mammography. No recent mammogram has been obtained. PET/CT imaging was negative concerning this lesion.
--- NOTE | 2023-02-17 08:46 | ECG_ITS ---
[facility] Test Date: 2023-02-17 Pat Name: Silvia Garcia Department: Room: Gender: Female Meatman: : 1940 Requested By: Dale Salter Order Number: [id number] Shyanne MD: Luis Hinojosa M.D. Measurements Intervals [place] Rate: 53 P: 67 MI: 185 QRS: 15 QRSD: 97 T: 62 QT: 451 QTc: 424 Interpretive Statements SINUS BRADYCARDIA Compared to ECG 08/26/2022 09:37:35 Sinus rhythm no longer present Incomplete right bundle-branch block no longer present Electronically Signed On 02-17-2023 21:14:10 CDT by Luis Hinojosa M.D. [id number]
[2023-02-17] MEDS: sodium chloride 0.9% 1,000 ML 30 ML IV (09:07)
--- NOTE | 2023-02-17 09:24 | ANES.PREANE2 ---
Pre-Anesthetic Assessment Height/Weight: Height 1.63 m Weight 70.307 kg Temp Pulse Resp BP Pulse Ox O2 Del Method 97.1 F L 57 L 18 175/74 95 Room Air 02/17/23 08:31 02/17/23 08:31 02/17/23 08:31 02/17/23 08:31 02/17/23 08:31 02/17/23 08:31 Operation Date: 02/17/23 09:50 Proposed Procedures p [ION navigational bronch, EBUS, 25241, 77688, 64941, 92149, 70906, 95179, 80897, 83871, 84496, 75058, 36438, 17099, 09366, 81112 ] R91.8, R59.9(Not Applicable) - David Agarwal MD s Ebus(Not Applicable) - David Agarwal MD Was Beta Mayda taken within 24 hours: Yes Was Clonidine taken within 24 hours: Yes Last intake: Intake Last Liquid Date 02/16/23 Last Liquid Time 21:00 Last Solid Date 02/16/23 Last Solid Time 17:00 Social No tobacco Quit smoking years ago Exam alert, oriented x 3, clear to auscultation bilaterally and regular rate & rhythm Airway Submandibular: within normal limits Cervical ROM: within normal limits Mallampati: Class II Dentition: false History/ROS No significant history except as noted and No significant complaints CV/HEM Hypertension GI Gastroesophageal Reflux Disease Metabolic Hyperlipidemia and Thyroid Disease Anesthetic Plan ASA status: 3 Anesthesia: General Risk of > 500 ml blood loss (7ml/kg in children): No Medications/Allergies Home Medications Medication Instructions Recorded Confirmed Last Taken Type simvastatin 20 mg tablet 20 mg PO BEDTIME 06/13/19 02/16/23 02/16/23 History aspirin 81 mg tablet,delayed 81 mg PO BEDTIME 06/21/20 02/16/23 02/12/23 History release levothyroxine 100 mcg tablet 100 mcg PO DAILY 08/17/22 02/16/23 02/17/23 06:00 History valsartan 320 mg tablet 320 mg PO QAM 08/17/22 02/16/23 02/16/23 History clonidine HCl 0.1 mg tablet 0.1 mg PO BID PRN Blood Pressure 08/26/22 02/16/23 Unknown History metoprolol succinate 100 mg 100 mg PO BEDTIME 08/26/22 02/16/23 02/16/23 18:00 History tablet,extended release 24 hr albuterol sulfate 90 mcg/actuation 1 inh inhalation QID PRN shortness 01/20/23 02/16/23 Unknown Rx aerosol inhaler of breath or wheezing #8.5 grams chlorthalidone 50 mg tablet 25 mg PO DAILY 02/16/23 02/16/23 02/17/23 06:00 History clonidine 0.1 mg/24 hr weekly 0.1 mg transdermal .WKLY 02/16/23 02/16/23 02/15/23 History transdermal patch multivit-iron 18 mg-folic acid 400 1 tab PO BEDTIME 02/16/23 02/16/23 02/16/23 History mcg-calcium 500 mg-minerals tablet (Women's One Daily) fdxpoqub-thv- 250 mg-dha 90 1 cap PO DAILY 02/16/23 02/16/23 02/16/23 History mg-epa 160 qo-gvwd-dbdd-zeax capsule (Ocuvite Adult 50 Plus) pantoprazole 40 mg tablet,delayed 40 mg PO BEDTIME 02/16/23 02/16/23 02/16/23 History release (Protonix) Allergies Allergy/AdvReac Type Severity Reaction Status Date / Time hydralazine Allergy Intermediate ADV-Weaknes Verified 01/20/23 14:28 s Current Medications Generic Name Dose Route Start Last Admin Trade Name Freq PRN Reason Stop Dose Admin Sodium Chloride 1,000 mls @ 30 mls/hr 02/17/23 08:30 02/17/23 09:07 Sodium Chloride 0.9% IV 02/18/23 08:29 30 mls/hr .Q24H MARIAA Administration PFSH Anesthesia Medical History Abdominal pain Acute blood loss anemia Acute upper gastrointestinal bleeding Dyslipidemia GERD (gastroesophageal reflux disease) HTN (hypertension) Melena Recurrent UTI Urinary hesitancy Uterine cancer Surgical History H/O esophagogastroduodenoscopy (08/20/20) Gastritis H/O tubal ligation H/O: hysterectomy History of colonoscopy with polypectomy (08/20/20) Diverticulosis Family History Mother , IN HER 80'S Diabetes Father , IN HIS 80'S Hypertension Social History Smoking and tobacco status: former smoker Alcohol intake: never Marital status: / Current occupational status: retired Current occupation: Retired Data Anesthesia 02/17/23 08:47 BMP 02/17/23 08:47 Sodium Cancelled Potassium Cancelled Chloride Cancelled Carbon Dioxide Cancelled BUN Cancelled Creatinine Cancelled Glucose Cancelled Calcium Cancelled Cardiac Studies: Echocardiogram 01/28/23 Cardiac Event Monitor 09/23/21
--- NOTE | 2023-02-17 09:29 | W.PM.OPSUD ---
Surgery/Procedure H&P Update DATE OF PROCEDURE: February 17, 2023 DATE H&P PERFORMED: 01/20/23 CHANGES TO PREVIOUS DOCUMENTATION: PET/CT 02/07/2023 showed similar size and number of right-sided noncalcified pulmonary nodules compared with 12/22/2022. The dominant nodule in the right middle lobe demonstrates low-level activity (SUV max 3.1) which is slightly greater than mediastinal blood pool activity. A malignant etiology cannot be excluded particularly given the history of ovarian cancer. PRIMARY INDICATION FOR PROCEDURE: Today scheduled for navigational bronchoscopy guided biopsy of right middle lobe lung nodule followed by endobronchial surveillance of hilar/mediastinal lymph node and possible biopsies PLANNED PROCEDURE: Operation Date: 02/17/23 09:50 Proposed Procedures p [ION navigational bronch, EBUS, 45169, 63896, 57195, 06390, 95265, 85762, 60456, 20822, 43774, 05600, 49545, 54862, 05773, 75912 ] R91.8, R59.9(Not Applicable) - David Agarwal MD s Ebus(Not Applicable) - David Agarwal MD
--- NOTE | 2023-02-17 09:52 | SC_ITS ---
WS: [id number] C-ARM RADIOGRAPHS CHEST; 6 IMAGES HISTORY: right middle lobe lesion ion/ebus COMPARISON: None available. Intraprocedural imaging during bronchoscopy and lung biopsy. Bronchoscopy terminates over the RIGHT i nferior thorax. IMPRESSION: Intraprocedural imaging during lung biopsy.
[2023-02-17 09:59] LABS: Anion Gap 11.6 (5-19); Blood Urea Nitrogen 17 mg/dL (8-23); Calcium 9.6 mg/dL (8.5-10.5); Carbon Dioxide 30 mmol/L (22-29); Chloride 103 mmol/L (98-107); Glucose 100 mg/dL (65-115); Osmolality Calculated 294 mOsm/kg (285-295); Potassium 3.6 mmol/L (3.5-5.1); Sodium 141 mmol/L (136-145)
[2023-02-17] MEDS: lidocaine 1% INJ 10 mL (per mL) XX ×2 (10:56→12:32)
--- NOTE | 2023-02-17 11:27 | XRR_ITS ---
PROCEDURE INFORMATION: Exam: XR Chest Exam date and time: 02/17/2023 11:58 AM Age: 82 years old Clinical indication: Screening exam; Other screening; Prior surgery; Surgery date: Post-operative (0-2 days); Surgery type: Post ion/ebus TECHNIQUE: Imaging protocol: Radiologic exam of the chest. Views: 1 view. COMPARISON: CT chest ION (PULM ONLY) [id number] 02/17/2023 8:58 AM FINDINGS: Lungs: The left lung appears clear. Pleural spaces: There is a large right pneumothorax with what appears to be paojz-rf-rzvf mediastinal shift. Heart/Mediastinum: See Pleural spaces finding. Bones/joints: Unremarkable. XR/XR chest 1V portable [id number] IMPRESSION: Findings suspicious for a large right tension pneumothorax.
--- NOTE | 2023-02-17 11:33 | P.OP_ITS ---
Operative Report Date of procedure: February 17, 2023 Pre-op diagnosis: PET/CT active right middle lobe lesion suspicious for malignancy Post-op diagnosis: Preliminary-suspected malignancy; awaiting final diagnosis Procedure done: 97768? ? Dx Bronchoscope w/Washings or airway inspection 47994? ? Dx Bronchoscope w/BAL 12861? ? Bronch with computer image guided Navigational Bronchoscopy 45745? ? Bronchoscopy w/Transbronchial lung biopsy(s), single lobe 23817? ? Bronchoscopy w/Transbronchial needle aspiration biopsy(s), tracheal, main stem, and/or lobar bronchus 87553? ? Bronchoscopy w/ therapeutic aspiration of the tracheobronchial tree (clearance of airway secretions, removal of mucus plugs) 35112? ? EBUS Diag or Interven Peripheral lesion (radial EBUS) Surgeon: David Agarwal MD Brief History: Ms. Silvia Garcia is a 82-year-old female with past medical history of GERD, dyslipidemia, hypertension, atrial fibrillation, peptic ulcer disease referred for eval and treat multiple nodules per Dr. Sage. Patient is a former smoker 1 ppd x 35 years. quit in 1989 She complains of occasional sob on exertion where she has to stop and rest. She never had PFTs and does not use inhalers; no known allergies; she always had absolute eosinophil counts more than 150.? It was 700 on 08/26/2022 Patient denied any cardiac interventions or stents; she had uterine cancer in 2011; she had surgery and chemotherapy and radition She had a CT chest 12/22/2022: Ordered by her primary care physician given her previous history of lung nodule;? Increased size of multiple right lower lung nodules compared to May 2018. Right middle lobe nodule 11 x 11 x 8 mm has increased from 8 x 7 x 6 mm In May 2018. Subsequent PET CT scan 02/09/2023 showed Anterior medial right middle lobe nodule 1 cm in Diameter With a low level uptake SUV 3.1 Which is likely greater than mediastinal pool activity. Malignant etiology cannot be ruled out given her history of uterine cancer. Rest of the nodules are not radiotracer avid. Today she is scheduled for navigational bronchoscopy guided biopsies of right middle lobe nodule and surveillance of hilar/mediastinal lymph nodes.Explained patient and her daughter in detail about the indication for the procedure, nature of the procedure, risks involved given her proximity to pleura- pneumothorax requiring chest tube and hospitalization As well as possible bleeding, Alternatives to procedure. They verbalized understanding and agreed to proceed with the procedure Procedure: 37592? ? Dx Bronchoscope w/Washings or airway inspection 72510? ? Dx Bronchoscope w/BAL 60744? ? Bronch with computer image guided Navigational Bronchoscopy 55969? ? Bronchoscopy w/Transbronchial lung biopsy(s), single lobe 09304? ? Bronchoscopy w/Transbronchial needle aspiration biopsy(s), tracheal, main stem, and/or lobar bronchus 75657? ? Bronchoscopy w/ therapeutic aspiration of the tracheobronchial tree (clearance of airway secretions, removal of mucus plugs) 76269? ? EBUS Diag or Interven Peripheral lesion (radial EBUS) Description of the procedure: The procedure was explained to the patient and the consent was obtained.? The patient was brought to the OR. Anesthesia: The patient underwent endotracheal intubation for general anesthesia. Local anesthesia: The distal trachea-Kat, right and left mainstem bronchi were anesthetized with 1% lidocaine, 3 mL. Following induction of general anesthesia, the flexible bronchoscope was advanced through the? ET tube.? The? lower trachea mucosa appeared normal, no endotracheal lesion was seen.? The kat was sharp.? The kat, the right and left mainstem bronchi are anesthetized with 1% lidocaine.? In a systematic manner bilateral bronchial tree was then examined.? The bronchoscope was advanced into the left mainstem bronchus.? The mucosa appeared normal with no endobronchial lesions.? The left upper lobe, lingula and left lower lobe bronchi were examined up to the third subsegmental level and no abnormalities were identified.? Mucosa appeared normal with no endobronchial lesion, active bleeding or mucous plug.??There were some mucus secretions in left lower lobe-which were suctioned right away.(63491) ?The bronchoscope was then introduced into the right mainstem bronchus.? The right upper lobe, right middle lobe and right lower lobe bronchi were examined up to the third subsegmental level.? Bronchus intermedius and lower lobe airways appeared distorted and has somewhat torturous anatomy.? Mucosa appeared normal with no endobronchial lesion, active bleeding or mucous plug.There were significant clear as well as some mucus secretions which were suctioned right away.(86862). After initial inspection as well as airway clearance with flexible bronchoscope(07033),?ION robotic assisted navigational bronchoscope (39543) was introduced-and right Middle lobe lesion was accessed.? After?confirming the location with radial EBUS (97737)Eccentric view,?under the fluoroscopy guidance? -we were able to obtain biopsies using fine-needle, forceps.There was some evidence of grade 2 bleeding-cold saline was instilled.? BAL was also taken from Lateral segment of right Middle lobe. After making sure there is no active bleeding navigational bronchoscope was retracted and introduced Endobronchial ultrasound EBUS (51586). ? There were no abnormal lymph nodes and mediastinal and hilar areas. After making sure there is no active bleeding bronchoscope was retracted and procedure terminated. ? Samples: A.? Right Middle lobe lesion 1.? Total of?4 passes were made using needle aspiration(31364);?1 slide was sent for rapid onsite evaluation.? Pathology reported seeing malignant cells Suspicious for non-small cell.? Rest of the material placed in formalin for histopathology. 2.? Targeting the?same area 4 passes were made using forceps (53765);?1 slide was sent for rapid onsite evaluation.? Pathology reported not seeing malignant cells.? Rest of the material placed in formalin for histopathology. 3.?Bronchoscope was wedged at the entrance of the Lateral segment of right middle lobe, 20 mL of saline was instilled and returned 14 mL of bronchoalveolar lavage (50723).??The fluid was mixed with blood and specks of tissue. Samples for cell count, cytology, cultures Postprocedure chest x-ray: There is no evidence of pneumothorax ? Complications: Postprocedure chest x-ray showed significant pneumothorax-accor dingly a Thora vent was placed and connected to suction. She was admitted to ICU for close observation Pt, and her daughter are aware that I am going to call them? to update final biopsy results once available.
[2023-02-17 11:50] LABS: Apprearance, Bronch Wash Cloudy (CLEAR); Color, Bronc Wash Red
[2023-02-17 11:51] LABS: Bronch Source Right Middle Lobe
[2023-02-17 11:57] LABS: Cyto Order Verification Order Verified
--- NOTE | 2023-02-17 12:22 | PC.NURSE ---
dr. sanchez rao to place thoracic vent.
[2023-02-17] MEDS: sodium chloride 0.9% 1,000 ML 100 ML IV (12:36)
--- NOTE | 2023-02-17 12:37 | XRR_ITS ---
PROCEDURE INFORMATION: Exam: XR Chest Exam date and time: 02/17/2023 12:40 PM Age: 82 years old Clinical indication: Condition or disease; Lung condition and disease; Pneumothorax; Additional info: Pneumo TECHNIQUE: Imaging protocol: Radiologic exam of the chest. Views: 1 view. COMPARISON: 1. CR XR chest 1V portable [id number] 02/17/2023 11:[address] chest ION (PULM ONLY) 93774 02/17/2023 8:58 AM FINDINGS: Lungs: Platelike atelectasis at the right mid lung zone. Stable mild patchy opacification of the right lower lung zone likely representing combination of atelectasis and known nodules. Pleural spaces: Interval small caliber right upper chest tube with persistent but substantially decreased pneumothorax. No pleural effusion. Heart/Mediastinum: Unremarkable. No cardiomegaly. Bones/joints: Unremarkable. XR/XR chest 1V portable [id number] IMPRESSION: Interval right chest tube with substantially decreased pneumothorax.
--- NOTE | 2023-02-17 12:49 | PC.NURSE ---
pt resting. tolerated procedure will.
[2023-02-17 12:57] LABS: Total Cells Counted Bronch 200
--- NOTE | 2023-02-17 13:58 | ANE.PACU2 ---
Inpatient post-anesthesia follow up: Airway intact: Yes Vital signs: Temperature 97 F Pulse Rate 66 Respiratory Rate 18 Blood Pressure 161/72 Pulse Oximetry 95 Oxygen Delivery Me thod Nasal Cannula Oxygen Flow Rate 2 Fraction of Inspir ed Oxygen Hydration adequate: Yes Nausea and vomiting: No Pain level: 2 Mental status: Baseline
--- NOTE | 2023-02-17 14:30 | XR_ITS ---
WS: [id number] PORTABLE CHEST HISTORY: post thoracic vent placement COMPARISON: Earlier the same day at 12:45 p.m. Smallbore RIGHT chest tube. Slight increase in size of the previously described RIGHT pneumothorax si nce the prior study. Atelectatic changes are noted in the lower lung field. No pleural effusion. Cardiac size: Normal. Mediastinum/Aorta: Mild atherosclerosis aorta. No osseous abnormality seen. New increase in RIGHT subcutaneous emphysema. IMPRESSION: 1. Small bore chest tube identified overlying the RIGHT apex. 2. Increase in size of the right-sided pneumothorax estimated approximately 30%. 3. Increasing RIGHT lateral subcutaneous emphysema.
--- NOTE | 2023-02-17 14:50 | PC.NURSE ---
pt hooked to pleur evac at 20 suction.
--- NOTE | 2023-02-17 15:07 | PC.NURSE ---
pt being admitted to icu 7 . report given to Olu.
[2023-02-17] MEDS: HYDROcodone-acetaminophen 5-325 mg Tablet 1 TAB PO (15:08)
--- NOTE | 2023-02-17 15:45 | XR_ITS ---
WS: [id number] PORTABLE CHEST HISTORY: pneumothorax COMPARISON: 02/17/2023 Small chest tube has been readjusted. The small RIGHT apical pneumothorax has nearly completely resol florencia. There is a very small amount of pneumothorax at the apex. Much improved. Linear atelectasis in t he mid RIGHT lung. No midline shift. 7 mm nodule lower half of the RIGHT thorax. No pleural effusion. Cardiac size: Mildly enlarged cardiac silhouette. Mediastinum/Aorta: Normal mediastinum. No osseous abnormality seen. IMPRESSION: 1. Slight readjustment of the small bore RIGHT chest tube. Markedly improved expansion of the RIGHT p neumothorax. Very tiny residual RIGHT apical pneumothorax. 2. No midline shift.
--- NOTE | 2023-02-17 17:02 | PM.CONSULT ---
Providers/Reason For Consult Consulting Physician/Specialty*: Hospitalist Reason for Consult*: Assist with medical management Requesting Physician: Due to tar Attending Physician: David Agarwal MD Primary Care Provider: Roc Sage DO History of Present Illness History of Present Illness Silvia Garcia is a 82 year old female with history of hypertension atrial fibrillation peptic ulcer disease presents status post bronchoscopy today. Patient was having bronchoscopy for exertional shortness of breath and multiple lung nodules on the right middle lobe. Unfortunately she sustained a complication of pneumothorax. Dr. Sanchez placed Pleurx catheter and patient will be observed overnight. She complains of minimal discomfort with movement or cough. Review of Systems Const: Denies: fever(s) or chills Eyes: Denies: change in vision ENMT: Denies: throat pain or nasal congestion Card: Denies: chest pain or palpitations Resp: Reports: other (exertional dypsnea); Denies: dyspnea or productive cough GI: Denies: abdominal pain, nausea, vomiting or change in stool character : Denies: dysuria Musc: Denies: back pain or extremity pain Skin/Breast: Denies: rash or lesions Neuro: Denies: headache(s) or dizziness Psych: Denies: anxiety or depression Leroy/Lymph: Denies: easy bruising or easy bleeding Medications/Allergies Home Medications Medication Instructions Recorded Confirmed Last Taken Type simvastatin 20 mg tablet 20 mg PO BEDTIME 06/13/19 02/16/23 02/16/23 History aspirin 81 mg tablet,delayed 81 mg PO BEDTIME 06/21/20 02/16/23 02/12/23 History release levothyroxine 100 mcg tablet 100 mcg PO DAILY 08/17/22 02/16/23 02/17/23 06:00 History valsartan 320 mg tablet 320 mg PO QAM 08/17/22 02/16/23 02/16/23 History clonidine HCl 0.1 mg tablet 0.1 mg PO BID PRN Blood Pressure 08/26/22 02/16/23 Unknown History metoprolol succinate 100 mg 100 mg PO BEDTIME 08/26/22 02/16/23 02/16/23 18:00 History tablet,extended release 24 hr albuterol sulfate 90 mcg/actuation 1 inh inhalation QID PRN shortness 01/20/23 02/16/23 Unknown Rx aerosol inhaler of breath or wheezing #8.5 grams chlorthalidone 50 mg tablet 25 mg PO DAILY 02/16/23 02/16/23 02/17/23 06:00 History clonidine 0.1 mg/24 hr weekly 0.1 mg transdermal .WKLY 02/16/23 02/16/23 02/15/23 History transdermal patch multivit-iron 18 mg-folic acid 400 1 tab PO BEDTIME 02/16/23 02/16/23 02/16/23 History mcg-calcium 500 mg-minerals tablet (Women's One Daily) tphuylat-vee-uuqzf5 250 mg-dha 90 1 cap PO DAILY 02/16/23 02/16/23 02/16/23 History mg-epa 160 hu-pnoc-knnm-zeax capsule (Ocuvite Adult 50 Plus) pantoprazole 40 mg tablet,delayed 40 mg PO BEDTIME 02/16/23 02/16/23 02/16/23 History release (Protonix) Allergies Allergy/AdvReac Type Severity Reaction Status Date / Time hydralazine Allergy Intermediate ADV-Weaknes Verified 01/20/23 14:28 s Current Medications Generic Name Dose Route Start Last Admin Trade Name Freq PRN Reason Stop Dose Admin Sodium Chloride 1,000 mls @ 30 mls/hr 02/17/23 08:30 02/17/23 12:36 Sodium Chloride 0.9% IV 02/18/23 08:29 Infused .Q24H MARIAA Infusion Sodium Chloride 1,000 mls @ 100 mls/hr 02/17/23 11:30 02/17/23 12:36 Sodium Chloride 0.9% IV 02/18/23 11:29 100 mls/hr .Q10H MARIAA Administration PFSH Acute PFSH: Medical History Abdominal pain Acute blood loss anemia Acute upper gastrointestinal bleeding Dyslipidemia GERD (gastroesophageal reflux disease) HTN (hypertension) Melena Recurrent UTI Urinary hesitancy Uterine cancer Surgical History H/O esophagogastroduodenoscopy (08/20/20) Gastritis H/O tubal ligation H/O: hysterectomy History of colonoscopy with polypectomy (08/20/20) Diverticulosis Family History Mother , IN HER 80'S Diabetes Father , IN HIS 80'S Hypertension Social History Smoking and tobacco status: former smoker Alcohol intake: never Marital status: / Current occupational status: retired Current occupation: Retired Vitals/I&O/Wt Last Vital Signs Temp 97 F L 02/17/23 12:15 Pulse 76 02/17/23 16:00 Resp 20 H 02/17/23 14:59 BP 144/64 02/17/23 14:59 Pulse Ox 95 02/17/23 16:00 O2 Del Method Nasal Cannula 02/17/23 16:00 O2 Flow Rate 2 02/17/23 16:00 02/17/23 02/17/23 02/17/23 06:59 14:59 22:59 Intake Total 1050 / 1050 Output Total Balance 1049 / 1049 Weight last 48 hrs Weight 70.307 kg Weight 70.307 kg Physical Exam Narrative: Elderly female in no acute distress at time of exam HEENT head is normocephalic atraumatic pupils equal round and reactive to light accommodation extraocular muscles are intact there is no scleral icterus mucous membranes are moist and pink without lesions or exudates neck is supple no JVD carotid bruits or lymphadenopathy Lymphatic no cysts cervical supraclavicular or inguinal lymphadenopathy palpable chest rises symmetrically with inspiration Lungs clear to auscultation without wheezes rales or rhonchi. Patient has a decreased inspiration effort due to pain and cough. Heart is normal S1-S2 patient has a 3 out of 6 systolic murmur heard best at the left upper sternal border Abdomen: Soft nontender nondistended positive bowel sounds no hepatosplenomegaly Extremities no clubbing cyanosis or edema Psych: Mood and affect is appropriate for illness. Data 02/17/23 09:20 Micro: Microbiology 02/17/23 11:15 Gram Stain - Final Lung Right Middle Lobe CXR: My impression: 4 chest x-rays done status post bronchoscopy and biopsy. Patient initially had a right complete pneumothorax subsequently images show Pleurx catheter with almost complete resolution by the fourth x-ray Radiologist's impression: CT imaging A&P Assessment and plan (1) Pneumothorax of right lung after biopsy: Status post Pleurx catheter placement with resolution of pneumothorax. Follow-up chest x-rays and management of Pleurx catheter per Dr. Agarwal (2) Exertional shortness of breath: Followed by Dr. Agarwal as an outpatient On 2 L status post pneumothorax (3) Multiple lung nodules on CT: Status postbiopsy await results (4) Peptic ulcer disease: Patient takes PPI chronically (5) Dyslipidemia: Patient on simvastatin chronically (6) HTN (hypertension): Patient on clonidine patch metoprolol 100 mg nightly and valsartan 320 mg every morning Will continue (7) Atrial fibrillation: By history currently in normal sinus rhythm Plan Patient is placed in observation status overnight in the ICU. Dr. Agarwal to manage pneumothorax chest tube and follow-up chest x-rays. Hospitalists to provide general medical care. Consult Attestations Medical Necessity Statement: Patient requires hospital level care due to post procedural complication of pneumothorax. She has a Pleurx cath to suction. Medical care is required to prevent sudden respiratory decompensation. Coding Level of Care Code Acute Code for [facility] Diagnoses Pneumothorax of right lung after biopsy J95.811 Exertional shortness of breath R06.[address] nodules on CT R91.8 Peptic ulcer disease K27.9 Dyslipidemia E78.5 HTN (hypertension) I10 Atrial fibrillation I48.91
--- NOTE | 2023-02-17 17:58 | PC.NURSE ---
Received patient from surgery staff at 1525. Patient is alert and oriented to person, place, time, and situation. HR: 69, BP: 147/66, SPO2: 98% on 2 L, Temp: 97.6. Pleuravac to the right upper chest. Verified set to 20 of suction.
--- NOTE | 2023-02-17 17:59 | PC.NURSE ---
Shift SUmmary: Uneventful shift. patient arrived in ICU around 1530. Up to the bedside commode one time and was able to void. Pleura vac set to 20 of suction. Occasionally complains of pain at pleuravac insertion site, but pain quickly goes away without intervention and rest.
--- NOTE | 2023-02-17 18:30 | XRR_ITS ---
PROCEDURE INFORMATION: Exam: XR Chest Exam date and time: 02/17/2023 6:33 PM Age: 82 years old Clinical indication: Condition or disease; Other: Pnemothorax; Prior surgery; Surgery date: Post-operative (0-2 days); Surgery type: Bronch; Additional info: Pneumothorax, timed for 1829 TECHNIQUE: Imaging protocol: Radiologic exam of the chest. Views: 1 view. COMPARISON: CR XR chest 1V portable [id number] 02/17/2023 3:41 PM FINDINGS: Right apical chest tube is again seen. Previously seen right apical pneumothorax is not definitely seen on the current exam. Right-sided subcutaneous emphysema is unchanged. Otherwise essentially unchanged chest x-ray. XR/XR chest 1V portable [id number] IMPRESSION: Previously seen small right apical pneumothorax is not definitely visualized on the current exam. Otherwise no change.
[2023-02-17] MEDS: docusate sodium 100 mg Capsule PO (18:41)
--- NOTE | 2023-02-17 19:03 | P.PCN_ITS ---
Procedure/Consent Time out: Time Out Performed: Yes Consent: Consent for Procedure: Consent obtained from other (indicate) (Daughter) Procedure Narrative: CPT code 17477: Pleural drainage, percutaneous, with insertion of indwelling catheter; without imaging guidance Date of procedure: 02/17/2023 Pre-op Diagnosis: Posterior lung biopsy-pneumothorax Post-op diagnosis: same Procedure Done:CPT code 17122: Pleural drainage, percutaneous, with insertion of indwelling catheter; without imaging guidance; 13 [place]ian thoracic vent placement Pathology: none sent [place] Department Worker: David Agarwal MD Anesthesia: Local Complications: None: Post procedure chest x-ray reveals lung expansion without evidence for pneumothorax Condition: Stable Disposition: ICU Brief History: Indication: Patient underwent right middle lobe navigational bronchoscopy biopsy of 1 cm nodule in the right in anterior medial right middle lobe close to the pleura. Postprocedure chest x-ray revealed significant pneumothorax. His right anterior chest wall was then sterilely prepped and draped. 1% lidocaine was infiltrated in the mid clavicular line over the second intercostal space. A #11 scalpel blade was used to incise the skin. Next, a trocar 13 Mauritanian thoracic vent was inserted through the incision and then by direct firm and controlled pressure into the left pleural space where the vent was advanced over the trocar as it was removed. There was a prompt return of air. The vent was secured to the skin with adhesive tabs and also with 2-0 silk suture. The vent was then connected to Pleur-evac suction where further air was evacuated. Vital signs remained stable throughout the procedure. Dressings were secured. I did membership counselor patient and her daughter at the completion of the procedure. Post procedure chest x-ray: Significant reexpansion of the right lung after connecting to suction Complications: None Acute Procedures Epistaxis Control: Time out performed: Yes
[2023-02-17] MEDS: pantoprazole DR 40 mg Tablet PO (21:56)
[2023-02-17] MEDS: metoprolol succinate ER (24 HR) 100 mg Tablet PO (21:56)
[2023-02-17] MEDS: aspirin 81 mg EC Tablet PO (21:56)
[2023-02-17] MEDS: atorvastatin 40 mg Tablet 20 MG PO (21:56)
[2023-02-18] VITALS (46 sets, daily range): BP systolic 114–177; BP diastolic 48–68; PULSE 46–66; RESP 14–30; TEMP 36.6–36.8; O2SAT 87–98
--- NOTE | 2023-02-18 | XRR_ITS ---
PROCEDURE INFORMATION: Exam: XR Chest Exam date and time: 02/18/2023 7:06 AM Age: 82 years old Clinical indication: Condition or disease; Lung condition and disease; Pneumothorax; Prior surgery; Surgery date: Post-operative (0-2 days); Surgery type: Bronch; Additional info: Pneumothorax/chest tube TECHNIQUE: Imaging protocol: Radiologic exam of the chest. Views: 1 view. COMPARISON: 1. CR (CHEST, ) 02/18/2023 12:14 AM 2. CR (CHEST, ) 02/17/2023 6:33 PM 3. CR XR chest 1V portable [id number] 02/17/2023 3:41 PM FINDINGS: Tubes, catheters and devices: Stable right upper chest tube. Lungs: Stable bibasilar linear atelectasis and/or scarring. No consolidation. Pleural spaces: No pleural effusion or pneumothorax. Heart/Mediastinum: Unremarkable. No cardiomegaly. Bones/joints: Unremarkable. Soft tissues: Right chest wall subcutaneous emphysema. XR/XR chest 1V portable [id number] IMPRESSION: Stable right upper chest tube with resolved pneumothorax.
--- NOTE | 2023-02-18 07:00 | XRR_ITS ---
PROCEDURE INFORMATION: Exam: XR Chest Exam date and time: 02/18/2023 12:14 AM Age: 82 years old Clinical indication: Device placement; Chest tube; Prior surgery; Surgery date: Post-operative (0-2 days); Additional info: Pneumothorax, timed for 0700 on 02/17/2023 TECHNIQUE: Imaging protocol: Radiologic exam of the chest. Views: 1 view. COMPARISON: CR (CHEST, ) 02/17/2023 6:33 PM FINDINGS: Tubes, catheters and devices: Right chest tube is unchanged. Lungs: Patchy bibasilar atelectasis or other infiltrates. Pleural spaces: Trace right apical pneumothorax, no change. Heart/Mediastinum: No cardiomegaly. Bones/joints: No acute fracture. Soft tissues: Subcutaneous emphysema projects over the right lateral chest wall. XR/XR chest 1V portable [id number] IMPRESSION: 1. Right chest tube is unchanged. Trace right apical pneumothorax, no change. 2. Patchy bibasilar atelectasis or other infiltrates.
[2023-02-18] MEDS: docusate sodium 100 mg Capsule PO ×2 (08:33→17:22)
[2023-02-18] MEDS: levothyroxine 100 mcg Tablet PO (08:34)
[2023-02-18] MEDS: losartan 50 mg Tablet 100 MG PO (08:36)
--- NOTE | 2023-02-18 08:38 | P.PN_ITS ---
Subjective Subjective: S/p IR navigational bronchoscopy of anterior medial right middle lobe lesion yesterday-she had post biopsy pneumothorax requiring 13 Togolese Thora vent connected to suction overnight Chest x-ray showed complete resolution of pneumothorax under suction at 12 AM midnight; suction was turned off and morning chest x-ray showed complete resolution of pneumothorax Patient denied any complaints and states her breathing is better she is able to cough without any pain She can go to floor and we will repeat chest x-ray in the afternoon Medications: Reviewed: Yes Vitals/I&O/Wt Last Vital Signs Temp 98.2 F 02/18/23 02:00 Pulse 49 L 02/18/23 06:00 Resp 20 H 02/18/23 06:00 BP 138/57 02/18/23 08:36 Pulse Ox 94 02/18/23 06:00 O2 Del Method Room Air 02/18/23 01:00 O2 Flow Rate 2 02/17/23 20:03 02/17/23 02/18/23 02/18/23 22:59 06:59 14:59 Intake Total 868.333 / 1918.333 Output Total 300 / 301 950 / 1251 Balance 568.333 / 1617.333 -950 / 667.333 Weight last 48 hrs Weight 155 lb Weight 155 lb Physical Exam Narrative: General: alert, NAD HEENT: conj clear, EOMI, PERRL, mmm, Neck: supple, no meningismus Heme: no cervical LAP Respiratory: Inspection: No visible deformity of the chest wall; Thora vent on right chest wall Palpation: Trachea is mildly deviated to the right, bilateral symmetric expansion Percussion: Bilateral tympanic percussion note both anterior and posteriorly Auscultation: Bilateral clear to auscultation both anterior and posteriorly, no crackles wheezing or rhonchi Cardiovascular: rrr, nl s1s2, no mrg Abdomen: soft, nt, nd, no r/g, bs+ Extremities: pulses +, no edema, no c/c : no CVA tenderness Skin: intact, no rash MSK: no back or neck pain Neurologic: grossly intact Data 02/17/23 09:20 Other Labs: Radiology Impressions Chest X-Ray 02/18/23 07:00 IMPRESSION: 1. Right chest tube is unchanged. Trace right apical pneumothorax, no change. 2. Patchy bibasilar atelectasis or other infiltrates. Laboratory Results Sodium 141 mmol/L (136-145) 02/17/23 09:20 Potassium 3.6 mmol/L (3.5-5.1) 02/17/23 09:20 Chloride 103 mmol/L (98-107) 02/17/23 09:20 Carbon Dioxide 30 mmol/L (22-29) H 02/17/23 09:20 Anion Gap 11.6 (5-19) 02/17/23 09:20 BUN 17 mg/dL (8-23) 02/17/23 09:20 Creatinine 1.3 mg/dL (0.5-0.9) H 02/17/23 09:20 GFR Calculation Not Reportable 02/17/23 09:20 Glucose 100 mg/dL (65-115) 02/17/23 09:20 Calculated Osmolality 294 mOsm/kg (285-295) 02/17/23 09:20 Calcium 9.6 mg/dL (8.5-10.5) 02/17/23 09:20 Bronch Specimen Source Right middle lobe 02/17/23 11:15 Bronchial Fluid Color Red 02/17/23 11:15 Bronchial Fluid Appearance Cloudy (CLEAR) 02/17/23 11:15 Bronchial Fluid WBC TNP 02/17/23 11:15 Bronchial Fluid RBC TNP 02/17/23 11:15 Bronch Cells Counted 200 02/17/23 11:15 Bronchial Neutrophils 21.00 % (0.9-2.3) H 02/17/23 11:15 Bronchial Lymphocytes 11.00 % (10.71-12.91) 02/17/23 11:15 Bronchial Eosinophils 4.00 % (0.13-0.25) H 02/17/23 11:15 Bronchial Macrophages 64.00 % (83.6-86.8) L 02/17/23 11:15 Micro: Microbiology 02/17/23 11:15 Gram Stain - Final Lung Right Middle Lobe A&P Assessment and plan (1) Pneumothorax of right lung after biopsy: S/p ion navigational bronchoscopy of anterior medial right middle lobe lesion yesterday-she had post biopsy pneumothorax requiring 13 Togolese Thora vent connected to suction overnight Chest x-ray showed complete resolution of pneumothorax under suction at 12 AM midnight; suction was turned off and morning chest x-ray showed complete resolution of pneumothorax Patient denied any complaints and states her breathing is better she is able to cough without any pain She can go to floor and we will repeat chest x-ray in the afternoon Encourage incentive spirometry and out of bed to chair (2) Right middle lobe pulmonary nodule: S/p ion navigational bronchoscopy of anterior medial right middle lobe lesion yesterday Preliminary reported suspected for malignancy Awaiting final path results; patient to follow-up as outpatient for the results Attestations Medical Necessity Statement*: Need at least 24 more hours elevations to make sure there is no recurrence of pneumothorax Time Spent in Patient Care: Greater than 35 minutes (>than 50% of time spent in counselling and/or direct pt care on unit) . Critical Care Time: The high probability of a clinically significant, sudden or life threatening deterioration of the patient's [pulmonary] system(s) required my full and direct attention, intervention and personal management. The critical care time is as shown. This time is in addition to time spent performing any reported procedures but includes the following: [x] Data and vital sign review and interpretation [x] Patient assessment, examination and intervention [x] Documentation [x] Medication orders and management Critical Care Time (min): 52 Coding Level of Care Code Acute Code for Chg Fwd Diagnoses Pneumothorax of right lung after biopsy J95.811 Right middle lobe pulmonary nodule R91.1 Time Spent (min) 52
--- NOTE | 2023-02-18 11:07 | PC.NURSE ---
Pt report given to Ivania GIL on med surge. TOok patient to room 276 bed 1
[2023-02-18] MEDS: chlorthalidone 25 mg Tablet PO (11:09)
--- NOTE | 2023-02-18 15:00 | XRR_ITS ---
PROCEDURE INFORMATION: Exam: XR Chest Exam date and time: 02/18/2023 3:03 PM Age: 82 years old Clinical indication: Condition or disease; Lung condition and disease; Pneumothorax; Prior surgery; Surgery date: 3-7 days post-operative; Surgery type: Bronch TECHNIQUE: Imaging protocol: Radiologic exam of the chest. Views: 1 view. COMPARISON: 1. CR (CHEST, ) 02/18/2023 7:06 AM 2. CR (CHEST, ) 02/18/2023 12:14 AM 3. CR (CHEST, ) 02/17/2023 6:33 PM FINDINGS: Tubes, catheters and devices: Stable right upper chest tube. Lungs: Bibasilar linear atelectasis and/or scarring. No consolidation. Stable right mid lung zone nodule. Pleural spaces: Possible tiny right apical pneumothorax. No pleural effusion. Heart/Mediastinum: Unremarkable. No cardiomegaly. Bones/joints: Unremarkable. Soft tissues: Right chest wall subcutaneous emphysema. XR/XR chest 1V portable [id number] IMPRESSION: Stable right upper chest tube with questionable tiny right apical pneumothorax.
--- NOTE | 2023-02-18 19:42 | PM.PN ---
Subjective Subjective: No complaints doing well. Vitals/I&O/Wt Last Vital Signs Temp 98.0 F 02/18/23 16:00 Pulse 52 L 02/18/23 16:00 Resp 18 02/18/23 16:00 BP 161/67 02/18/23 16:00 Pulse Ox 90 02/18/23 16:00 O2 Del Method Room Air 02/18/23 16:00 O2 Flow Rate 2 02/18/23 08:00 02/18/23 02/18/23 02/18/23 06:59 14:59 22:59 Intake Total 480 / 480 120 / 600 Output Total 950 / 1251 Balance -950 / 667.333 480 / 480 120 / 600 Weight last 48 hrs Weight 70.307 kg Physical Exam Narrative: Elderly female in no acute distress at time of exam Lungs clear to auscultation without wheezes rales or rhonchi. Patient has a decreased inspiration effort due to pain and cough. Heart is normal S1-S2 patient has a 3 out of 6 systolic murmur heard best at the left upper sternal border Abdomen: Soft nontender nondistended positive bowel sounds no hepatosplenomegaly Extremities no clubbing cyanosis or edema Data 02/17/23 09:20 Micro: Microbiology 02/17/23 11:15 Gram Stain - Final Lung Right Middle Lobe Bronchial Washings Culture - Preliminary A&P Assessment and plan (1) Pneumothorax of right lung after biopsy: Status post Pleurx catheter placement with resolution of pneumothorax. Suction removed. (2) Exertional shortness of breath: Followed by Dr. Agarwal as an outpatient On 2 L status post pneumothorax (3) Multiple lung nodules on CT: Status postbiopsy await results (4) Peptic ulcer disease: Patient takes PPI chronically (5) Dyslipidemia: Patient on simvastatin chronically (6) HTN (hypertension): Patient on clonidine patch metoprolol 100 mg nightly and valsartan 320 mg every morning Will continue (7) Atrial fibrillation: By history currently in normal sinus rhythm Plan Transfer to floor. She is off suction. Dr. Agarwal to manage pneumothorax chest tube and follow-up chest x-rays. Hospitalists to provide general medical care. Attestations Medical Necessity Statement*: Need at least 24 more hours elevations to make sure there is no recurrence of pneumothorax Coding Level of Care Code Acute Code for Chg Fwd Diagnoses Pneumothorax of right lung after biopsy J95.811 Exertional shortness of breath R06.[address] nodules on CT R91.8 Peptic ulcer disease K27.9 Dyslipidemia E78.5 HTN (hypertension) I10 Atrial fibrillation I48.91
[2023-02-18] MEDS: LORazepam 0.5 mg Tablet PO (22:46)
[2023-02-18] MEDS: metoprolol succinate ER (24 HR) 100 mg Tablet PO (22:47)
[2023-02-18] MEDS: atorvastatin 40 mg Tablet 20 MG PO (22:47)
[2023-02-18] MEDS: pantoprazole DR 40 mg Tablet PO (22:47)
[2023-02-18] MEDS: aspirin 81 mg EC Tablet PO (22:47)
[2023-02-19] VITALS: BP 112/51; PULSE 51; RESP 16; TEMP 37.1; O2SAT 91
[2023-02-19 01:47] VITALS: BP 112/51; PULSE 51; RESP 16; TEMP 37; O2SAT 91
[2023-02-19 04:13] VITALS: BP 147/65; PULSE 55; RESP 17; TEMP 37.1; O2SAT 91
[2023-02-19 05:01] VITALS: PULSE 61
--- NOTE | 2023-02-19 07:10 | XR_ITS ---
WS: [id number] Portable AP upright chest, 02/19/2023 Clinical Data: pneumothorax Comparison: Portable chest, 02/18/2023 Findings: The small right apical pneumothorax is not apparent. There is a small chest tube ending in the superior right pleural space. There is moderate subcutaneous emphysema along the right chest wall . No masses, nodules or effusions are seen. The heart is slightly enlarged. The aortic arch shows mil d tortuosity. No pneumonia is present. There are monitor leads on the chest wall. Impression: 1. Small right apical pneumothorax not apparent. 2. Small right upper pleural space chest tube remains in position. 3. No change in subcutaneous emphysema adjacent to the right chest wall.
[2023-02-19 08:12] VITALS: BP 184/70; PULSE 57; RESP 18; TEMP 36.6; O2SAT 94
--- NOTE | 2023-02-19 08:40 | PM.PN ---
Subjective Subjective: Patient did well overnight Thora vent was closed yesterday evening-today morning chest x-ray no recurrence of pneumothorax Thora vent was removed Patient is stable for discharge from pulmonary standpoint Medications: Reviewed: Yes Vitals/I&O/Wt Last Vital Signs Temp 97.9 F 02/19/23 08:12 Pulse 57 L 02/19/23 08:12 Resp 18 02/19/23 08:12 BP 184/70 02/19/23 08:12 Pulse Ox 94 02/19/23 08:12 O2 Del Method Room Air 02/19/23 08:12 O2 Flow Rate 2 02/18/23 08:00 02/18/23 02/19/23 02/19/23 22:59 06:59 14:59 Intake Total 120 / 600 120 / 720 Balance 120 / 600 120 / 720 Physical Exam Narrative: General: alert, NAD HEENT: conj clear, EOMI, PERRL, mmm, Neck: supple, no meningismus Heme: no cervical LAP Respiratory: Inspection: No visible deformity of the chest wall Palpation: Trachea is mildly deviated to the right, bilateral symmetric expansion Percussion: Bilateral tympanic percussion note both anterior and posteriorly Auscultation: Bilateral clear to auscultation both anterior and posteriorly, no crackles wheezing or rhonchi Cardiovascular: rrr, nl s1s2, no mrg Abdomen: soft, nt, nd, no r/g, bs+ Extremities: pulses +, no edema, no c/c : no CVA tenderness Skin: intact, no rash MSK: no back or neck pain Neurologic: grossly intact Data 02/17/23 09:20 Other Labs: Laboratory Results Sodium 141 mmol/L (136-145) 02/17/23 09:20 Potassium 3.6 mmol/L (3.5-5.1) 02/17/23 09:20 Chloride 103 mmol/L (98-107) 02/17/23 09:20 Carbon Dioxide 30 mmol/L (22-29) H 02/17/23 09:20 Anion Gap 11.6 (5-19) 02/17/23 09:20 BUN 17 mg/dL (8-23) 02/17/23 09:20 Creatinine 1.3 mg/dL (0.5-0.9) H 02/17/23 09:20 GFR Calculation Not Reportable 02/17/23 09:20 Glucose 100 mg/dL (65-115) 02/17/23 09:20 Calculated Osmolality 294 mOsm/kg (285-295) 02/17/23 09:20 Calcium 9.6 mg/dL (8.5-10.5) 02/17/23 09:20 Bronch Specimen Source Right middle lobe 02/17/23 11:15 Bronchial Fluid Color Red 02/17/23 11:15 Bronchial Fluid Appearance Cloudy (CLEAR) 02/17/23 11:15 Bronchial Fluid WBC TNP 02/17/23 11:15 Bronchial Fluid RBC TNP 02/17/23 11:15 Bronch Cells Counted 200 02/17/23 11:15 Bronchial Neutrophils 21.00 % (0.9-2.3) H 02/17/23 11:15 Bronchial Lymphocytes 11.00 % (10.71-12.91) 02/17/23 11:15 Bronchial Eosinophils 4.00 % (0.13-0.25) H 02/17/23 11:15 Bronchial Macrophages 64.00 % (83.6-86.8) L 02/17/23 11:15 Micro: Microbiology 02/17/23 11:15 Gram Stain - Final Lung Right Middle Lobe Bronchial Washings Culture - Preliminary A&P Assessment and plan (1) Pneumothorax of right lung after biopsy: S/p ion navigational bronchoscopy of anterior medial right middle lobe lesion yesterday-she had post biopsy pneumothorax requiring 13 [place]uba Thora vent She was off suction and repeat chest x-ray was normal; closed Thora vent yesterday evening and today morning Chest x-ray showed complete resolution of pneumothorax Patient denied any complaints and states her breathing is better she is able to cough without any pain She can be discharged from pulmonary standpoint (2) Right middle lobe pulmonary nodule: S/p ion navigational bronchoscopy of anterior medial right middle lobe lesion yesterday Preliminary reported suspected for malignancy Awaiting final path results; patient to follow-up as outpatient for the results (3) Encounter for chest tube removal: Closed with Thora vent yesterday evening-today morning chest x-ray with no evidence of recurrence of pneumothorax Thora vent removed Attestations Medical Necessity Statement*: Patient is stable from pulmonary standpoint for discharge Time Spent in Patient Care: Greater than 35 minutes (>than 50% of time spent in counselling and/or direct pt care on unit). Coding Level of Care Code 15048 Diagnoses Pneumothorax of right lung after biopsy J95.811 Right middle lobe pulmonary nodule R91.1 Encounter for chest tube removal Z46.82 Time Spent (min) 35
[2023-02-19] MEDS: levothyroxine 100 mcg Tablet PO (09:57)
[2023-02-19] MEDS: docusate sodium 100 mg Capsule PO (09:58)
[2023-02-19] MEDS: losartan 50 mg Tablet 100 MG PO (09:59)
[2023-02-19] MEDS: chlorthalidone 25 mg Tablet PO (10:00)
--- NOTE | 2023-02-19 10:04 | PM.DCS ---
Discharge Providers Date of Admission: 02/17/23 15:29 Date of Discharge: February 19, 2023 Attending Provider at Admission: Elvia Rajan MD Attending Provider at Discharge: David Agarwal MD Consults: Dr. Agarwal Primary Care Provider: Roc Sage DO Diagnoses at Discharge Discharge Diagnosis (1) Pneumothorax of right lung after biopsy: Status: Acute (2) Right middle lobe pulmonary nodule: Status: Acute (3) Encounter for chest tube removal: Status: Acute Reason for Visit Reason for Visit: R91.8, R95.9 Brief History: Mrs. Garcia was at the hospital for outpatient bronchoscopy due to a right middle lobe nodule. After the procedure she experienced an unfortunate not uncommon complication of a pneumothorax. Dr. Agarwal chest tube and patient was admitted for resolution Hospital Course Hospital Course Was admitted to the ICU overnight with the Pleurx catheter to suction. Pneumothorax was apical and small. The able to be discontinued. [place] out of the unit with the tube in place without suction. X-ray showed complete resolution of pneumothorax. Discharge her Pleurx was removed and she was discharged home in stable and improved condition Physical Exam Narrative: Elderly female in no acute distress at time of exam Lungs minimal rhonchi in the middle upper left lung field Heart is normal S1-S2 patient has a 3 out of 6 systolic murmur heard best at the left upper sternal border Abdomen: Soft nontender nondistended positive bowel sounds no hepatosplenomegaly Extremities no clubbing cyanosis or edema Discharge Data Studies Completed and Pending Completed Studies During Hospitalization Category Date Time Status CT chest ION (PULM ONLY) 18378 Routine Cat Scan 02/17/23 08:17 Completed CXRP [XR chest 1V portable [id number]] Routine Exams 02/18/23 15:00 Completed CXRP [XR chest 1V portable [id number]] Stat Exams 02/19/23 07:10 Completed XR chest 1V portable [id number] Routine Exams 02/17/23 11:27 Completed XR chest 1V portable [id number] Routine Exams 02/17/23 14:30 Completed XR chest 1V portable [id number] Routine Exams 02/17/23 18:30 Completed XR chest 1V portable [id number] Routine Exams 02/18/23 07:00 Completed XR chest 1V portable [id number] Stat Exams 02/17/23 15:45 Completed XR chest 1V portable [id number] Stat Exams 02/18/23 00:00 Completed XR chest 1V portable [id number] Urgent Exams 02/17/23 12:37 Completed Pending at discharge Category Date Time Status Bronch Washing Culture & GS Routine Lab 02/17/23 11:15 Results Cytology [PTH] Routine Pth 02/17/23 10:49 Received Cytology [PTH] Routine Pth 02/17/23 11:06 Received Cytology [PTH] Routine Pth 02/17/23 11:17 Received Pathology: Surgical [PTH] Routine Pth 02/17/23 11:31 Received Laboratory Results Sodium 141 mmol/L (136-145) 02/17/23 09:20 Potassium 3.6 mmol/L (3.5-5.1) 02/17/23 09:20 Chloride 103 mmol/L (98-107) 02/17/23 09:20 Carbon Dioxide 30 mmol/L (22-29) H 02/17/23 09:20 Anion Gap 11.6 (5-19) 02/17/23 09:20 BUN 17 mg/dL (8-23) 02/17/23 09:20 Creatinine 1.3 mg/dL (0.5-0.9) H 02/17/23 09:20 GFR Calculation Not Reportable 02/17/23 09:20 Glucose 100 mg/dL (65-115) 02/17/23 09:20 Calculated Osmolality 294 mOsm/kg (285-295) 02/17/23 09:20 Calcium 9.6 mg/dL (8.5-10.5) 02/17/23 09:20 Bronch Specimen Source Right middle lobe 02/17/23 11:15 Bronchial Fluid Color Red 02/17/23 11:15 Bronchial Fluid Appearance Cloudy (CLEAR) 02/17/23 11:15 Bronchial Fluid WBC TNP 02/17/23 11:15 Bronchial Fluid RBC TNP 02/17/23 11:15 Bronch Cells Counted 200 02/17/23 11:15 Bronchial Neutrophils 21.00 % (0.9-2.3) H 02/17/23 11:15 Bronchial Lymphocytes 11.00 % (10.71-12.91) 02/17/23 11:15 Bronchial Eosinophils 4.00 % (0.13-0.25) H 02/17/23 11:15 Bronchial Macrophages 64.00 % (83.6-86.8) L 02/17/23 11:15 Vitals Last Vital Signs Temp 97.9 F 02/19/23 08:12 Pulse 57 L 02/19/23 08:12 Resp 18 02/19/23 08:12 BP 184/70 02/19/23 08:12 Pulse Ox 94 02/19/23 08:12 O2 Del Method Room Air 02/19/23 08:12 O2 Flow Rate 2 02/18/23 08:00 Discharge Plan Discharge Patient Disposition: Home Condition: Stable Prescriptions: New atorvastatin 40 mg Tablet 80 mg PO BEDTIME Qty: 30 0RF Continued albuterol sulfate 90 mcg/actuation HFA aerosol inhaler 1 inh inhalation QID PRN (Reason: shortness of breath or wheezing) Qty: 8.5 4RF aspirin 81 mg Tablet,Delayed Release (Dr/Ec) 81 mg PO BEDTIME Women's One Daily 18 mg iron-400 mcg-500 mg Ca Tablet 1 tab PO BEDTIME Ocuvite Adult 50 Plus 250 mg (90 mg-160 mg) Capsule 1 cap PO DAILY pantoprazole [Protonix] 40 mg tablet,delayed release (DR/EC) 40 mg PO BEDTIME levothyroxine 100 mcg tablet 100 mcg PO DAILY Discontinued simvastatin 20 mg tablet 20 mg PO BEDTIME clonidine 0.1 mg/24 hr patch weekly 0.1 mg transdermal .WKLY chlorthalidone 50 mg tablet 25 mg PO DAILY valsartan 320 mg Tablet 320 mg PO QAM clonidine HCl 0.1 mg Tablet 0.1 mg PO BID PRN (Reason: Blood Pressure) metoprolol succinate 100 mg tablet extended release 24 hr 100 mg PO BEDTIME Discharge Orders: Discharge Order (Routine); Ordered 02/19/23 Ordered By: Bruce Russo Referrals: Roc Sage DO [Primary Care Provider] - Discharge Diet: Usual diet Discharge Activity: Resume usual activity Activity Restrictions/Additional Instructions: May resume taking Eliquis tonight. Discharge Attestations Time Spent in Discharge Care*: less than 30 min Quality Metrics Clinical Quality Measures [ No reported AMI, CVA or VTE this stay] Coding Level of Care Code Acute Code for Chg Fwd Diagnoses Pneumothorax of right lung after biopsy J95.811 Right middle lobe pulmonary nodule R91.1 Encounter for chest tube removal Z46.82
[2023-02-19 13:33] VITALS: BP 184/70; PULSE 57; RESP 18; TEMP 36.6; O2SAT 94
== END 2023-02-19 13:30 | disposition home or self-care (01) ==
LOC: ICU 17:21 → MEDSURG 02-18 11:25
PROVIDERS: Admitting Provider Hospitalist; PCP Electrodiagnostic Medicine; Visit Provider Internal Medicine Pulmonary Disease
PROC: 0BJ08ZZ Inspection of Tracheobronchial Tree, Via Natural or Artificial Opening Endoscopic (ICD-10-PCS; CPT 31622; principal; 2023-02-17 09:30)
PROC: BB4BZZZ Ultrasonography of Pleura (ICD-10-PCS; 2023-02-17 09:30)
DX: R91.1 Solitary pulmonary nodule (principal); J95.811 Postprocedural pneumothorax; Z46.82 Encounter for fitting and adjustment of non-vascular catheter; K21.9 Gastro-esophageal reflux disease without esophagitis; E78.5 Hyperlipidemia, unspecified; I10 Essential (primary) hypertension; I48.91 Unspecified atrial fibrillation; Z87.11 Personal history of peptic ulcer disease; Z87.891 Personal history of nicotine dependence; R06.02 Shortness of breath; R91.8 Other nonspecific abnormal finding of lung field; Z79.82 Long term (current) use of aspirin; Z85.42 Personal history of malignant neoplasm of other parts of uterus; R00.1 Bradycardia, unspecified
CPT/HCPCS: 31624; 31627; 31628; 31629; 31645; 31654; 32556; 36415; 71045; 71250; 76000; 80048; 80503; 87070; 87205; 88112; 88305; 88342; 89050; 93005; 96376; G0378; J1100; J2405; J2704; J2710; J3010; J3490; J7030

== ENCOUNTER → 2023-02-24 15:37 | Outpatient (BNVA) | payer MEDICARE, SELFPAY | PROVIDERS: PCP Electrodiagnostic Medicine; Visit Provider Internal Medicine Pulmonary Disease | DX: C34.90 Malignant neoplasm of unspecified part of unspecified bronchus or lung (principal); J95.811 Postprocedural pneumothorax; C34.2 Malignant neoplasm of middle lobe, bronchus or lung; R91.8 Other nonspecific abnormal finding of lung field; Z09 Encounter for follow-up examination after completed treatment for conditions other than malignant neoplasm; Z87.891 Personal history of nicotine dependence | CPT/HCPCS: 71045; 99214 ==

== ENCOUNTER → 2023-03-18 09:25 | Outpatient (BNVA) | payer MEDICARE, SELFPAY | PROVIDERS: PCP Electrodiagnostic Medicine; Visit Provider Nurse Practitioner Family | DX: L57.0 Actinic keratosis (principal); L81.4 Other melanin hyperpigmentation; L57.8 Other skin changes due to chronic exposure to nonionizing radiation; D22.39 Melanocytic nevi of other parts of face | CPT/HCPCS: 17000; 99213 ==

== ENCOUNTER → 2023-05-20 12:21 | Outpatient (BNVA) | payer MEDICARE, SELFPAY | PROVIDERS: PCP Electrodiagnostic Medicine; Visit Provider Internal Medicine Pulmonary Disease | DX: R91.8 Other nonspecific abnormal finding of lung field (principal); R06.02 Shortness of breath; N63.20 Unspecified lump in the left breast, unspecified quadrant | CPT/HCPCS: 99214 ==

== ENCOUNTER 2023-06-25 11:18 | Outpatient (CLI) | payer MEDICARE, SELFPAY ==
--- NOTE | 2023-06-25 11:23 | MM_ITS ---
WS: [id number] BILATERAL 3D TOMOSYNTHESIS DIGITAL DIAGNOSTIC MAMMOGRAPHY WITH CAD CLINICAL INFORMATION: LT BR MASS HISTORY: LEFT breast lesion on prior chest CT 02/17/2023 COMPARISON: 01/02/2021 TECHNIQUE: Bilateral CC, MLO, and ML views. FINDINGS: Scattered fibroglandular densities bilaterally. Incidental punctate and lucent centered calcification s. No suspicious abnormalities deep to the palpable marker LEFT breast. Dense subareolar LEFT breast tissue corresponds to the chest CT findings and appears similar in appearance compared to 2020. Ultra sound of this area is pending. Vascular calcification. Chronic nipple inversion or nipple retraction LEFT breast. Unremarkable RIGHT breast. ULTRASOUND BREAST LEFT TECHNIQUE: Ultrasound left breast focused area of concern. CLINICAL INFORMATION: LT BR MASS FINDINGS: Ultrasound LEFT breast subareolar and area of concern. 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 This is similar in appearance to the prior ultrasound 2018 No suspicious abnormalities in the area of concern. IMPRESSION: MM/[place] [id number] BI-RADS: 2-Benign FOLLOW UP: 1 Year Follow-up Recommend return to annual screening mammography.
== END 2023-06-25 11:19 | disposition home or self-care (01) ==
LOC: RAD 11:18
PROVIDERS: PCP Electrodiagnostic Medicine; Visit Provider Electrodiagnostic Medicine
DX: N63.20 Unspecified lump in the left breast, unspecified quadrant (principal); R92.322 Mammographic fibroglandular density, left breast; N64.59 Other signs and symptoms in breast
CPT/HCPCS: 76642; 77062; G0279

== ENCOUNTER 2023-08-13 08:58 | Outpatient (CLI) | payer MEDICARE, SELFPAY ==
--- NOTE | 2023-08-13 09:30 | CTR_ITS ---
PROCEDURE INFORMATION: Exam: CT Chest Without Contrast; Diagnostic Exam date and time: 08/13/2023 9:07 AM Age: 82 years old Clinical indication: Condition or disease; Lung condition and disease; Cancer of the lung; Unspecified; Prior surgery; Surgery date: 6+ months; Surgery type: Right lung ion/radiation; Additional info: Follow up TECHNIQUE: Imaging protocol: Diagnostic computed tomography of the chest without contrast. Radiation optimization: All CT scans at this facility use at least one of these dose optimization techniques: automated exposure control; mA and/or kV adjustment per patient size (includes targeted exams where dose is matched to clinical indication); or iterative reconstruction. COMPARISON: CT chest ION (PULM ONLY) [id number] 02/17/2023 8:58 AM RADIATION DOSE METRICS: Total DLP (mGy-cm): 335.63 FINDINGS: Lungs: Right upper, middle and lower lobe pulmonary nodules measuring up to 10.7 mm in the right middle lobe, similar dating back to 12/22/2022. Stability suggests a possible benign process, however, malignancy is not excluded. Pleural spaces: Unremarkable. No pneumothorax. No pleural effusion. Heart: Cardiomegaly. Small pericardial effusion measuring 7.4 mm in thickness. Cardiomegaly. Coronary arteries: Coronary artery atherosclerotic calcifications. Coronary artery atherosclerotic calcifications. Lymph nodes: Unremarkable. No enlarged lymph nodes. Vasculature: Proximal superior mesenteric artery atherosclerotic calcifications with 60-70% luminal narrowing suspected. Bones/joints: Unremarkable. No acute fracture. Soft tissues: Spiculated left breast 2.6 cm mass again seen series 4, image 32, please correlate with dedicated breast imaging. CT/CT chest wo con [id number] IMPRESSION: 1. Right upper, middle and lower lobe pulmonary nodules measuring up to 10.7 mm in the right middle lobe, similar dating back to 12/22/2022. Stability suggests a possible benign process, however, malignancy is not excluded. Previously a PET-CT scan was performed of these nodules which also noted a malignant etiology cannot be excluded. 2. Spiculated left breast 2.6 cm mass again seen series 4, image 32, please correlate with dedicated breast imaging. 3. Cardiomegaly. 4. Coronary artery atherosclerotic calcifications. 5. Small pericardial effusion measuring 7.4 mm in thickness. 6. Cardiomegaly. 7. Coronary artery atherosclerotic calcifications. 8. Proximal superior mesenteric artery atherosclerotic calcifications with 60-70% luminal narrowing suspected.
== END 2023-08-13 08:59 | disposition home or self-care (01) ==
LOC: RAD 08:59
PROVIDERS: PCP Electrodiagnostic Medicine; Visit Provider Internal Medicine Pulmonary Disease
DX: C34.90 Malignant neoplasm of unspecified part of unspecified bronchus or lung (principal); R91.8 Other nonspecific abnormal finding of lung field; I25.10 Atherosclerotic heart disease of native coronary artery without angina pectoris; K55.1 Chronic vascular disorders of intestine; I31.39 Other pericardial effusion (noninflammatory); I51.7 Cardiomegaly
CPT/HCPCS: 71250

== ENCOUNTER → 2023-08-19 10:18 | Outpatient (BNVA) | payer MEDICARE, SELFPAY | PROVIDERS: PCP Electrodiagnostic Medicine; Visit Provider Internal Medicine Pulmonary Disease | DX: R91.8 Other nonspecific abnormal finding of lung field (principal); J82.83 Eosinophilic asthma; N63.20 Unspecified lump in the left breast, unspecified quadrant; Z87.891 Personal history of nicotine dependence | CPT/HCPCS: 99214 ==

== ENCOUNTER 2024-01-14 09:58 | Outpatient (CLI) | payer MEDICARE, SELFPAY ==
--- NOTE | 2024-01-14 10:05 | CT_ITS ---
WS: [id number] CT chest w con* [id number] HISTORY: NON SMALL CELL LUNG CANCER TECHNIQUE: Axial imaging performed through the thorax. Coronal and sagittal reformats are submitted. All CT scans at [facility] use at least one of these dose optimization techniques: automated exposure control; mA and/or kV adjustment per patient size (includes targeted exams where dose is mat ched to clinical indication); or iterative reconstruction. CONTRAST: Omnipaque 350; 100 mL IV. DLP: 293.29 mGy.cm COMPARISON: 08/13/2023, PET/CT 02/07/2023, chest CT 12/22/2022 and 10/18/2020 Lungs and central airway: Moderate centrilobular emphysema. Patient has multiple known pulmonary nodu les which are reidentified. The largest nodule in the medial RIGHT middle lobe is reidentified measur ing 11 mm. This nodule has been present since 10/18/2020 with slight increase in size. The additional nodules also appear to be stable without a significant change. There is a single nodule which is new. This nodule is slightly ovoid with a maximum diameter of 9 mm in the RIGHT lower lobe, image 42 of s eries 5. Pleura: Normal. No pleural effusion. Heart and pericardium: Mild cardiomegaly. Mediastinum and tonny: No mediastinum or hilar adenopathy. Vessels: Mildly ectatic aorta and prominent pulmonary artery. Chest wall and lower neck: No soft tissue masses. Upper abdomen: Slightly contracted gallbladder. No adrenal mass. The visualized liver is negative. At herosclerotic plaque in the proximal SMA moderate stenosis reidentified. Osseous structures: Mild increase in thoracic kyphosis. Mild thoracic spondylosis. CT/CT chest w con* [id number] IMPRESSION: 1. Numerous, bilateral and multilobar pulmonary nodules are reidentified. The largest in the RIGHT middle lobe measures 11 mm. Slight increase in size of thi s largest nodule since 10/18/2020. Indeterminate by PET/CT on 02/07/2023. Recomme nd continued close imaging follow-up. 2. New RIGHT lower lobe pulmonary nodule measures 9 mm. Recommend follow-up ch est CT in 3 months to document stability or progression. Neoplasm is not exclud ed. 3. No adenopathy. 4. Mild cardiomegaly. 5. No adrenal mass.
[2024-01-14 11:02] LABS: Blood Urea Nitrogen 22 mg/dL (8-23)
[2024-01-14] MEDS: iohexol 350 mg/mL 500 mL Btl (per mL) IV (11:42)
== END 2024-01-14 09:59 | disposition home or self-care (01) ==
LOC: RAD 09:59
PROVIDERS: Radiology Neuroradiology; PCP Electrodiagnostic Medicine; Visit Provider Electrodiagnostic Medicine
DX: C34.90 Malignant neoplasm of unspecified part of unspecified bronchus or lung (principal); J43.2 Centrilobular emphysema; R91.1 Solitary pulmonary nodule; I77.1 Stricture of artery
CPT/HCPCS: 71260; 82565; 84520; Q9967

== ENCOUNTER → 2024-03-18 10:30 | Outpatient (BNVA) | payer MEDICARE, SELFPAY | PROVIDERS: PCP Electrodiagnostic Medicine; Visit Provider Nurse Practitioner Family | DX: L57.0 Actinic keratosis (principal); D22.39 Melanocytic nevi of other parts of face; L81.8 Other specified disorders of pigmentation; L57.8 Other skin changes due to chronic exposure to nonionizing radiation; L82.1 Other seborrheic keratosis; D69.2 Other nonthrombocytopenic purpura | CPT/HCPCS: 17000; 99213 ==

== ENCOUNTER 2024-04-20 11:47 | Outpatient (CLI) | payer MEDICARE, SELFPAY ==
--- NOTE | 2024-04-20 11:46 | CTR_ITS ---
PROCEDURE INFORMATION: Exam: CT Chest With Contrast; Diagnostic Exam date and time: 04/20/2024 12:30 PM Age: 83 years old Clinical indication: Condition or disease; Lung condition and disease; Cancer of the lung; Unspecified; Primary cancer: Left lung; Prior surgery; Surgery date: 6+ months; Additional info: Non small cell lung cancer TECHNIQUE: Imaging protocol: Diagnostic computed tomography of the chest with contrast. Radiation optimization: All CT scans at this facility use at least one of these dose optimization techniques: automated exposure control; mA and/or kV adjustment per patient size (includes targeted exams where dose is matched to clinical indication); or iterative reconstruction. Contrast material: OMNI 350; Contrast volume: 100 ml; Contrast route: INTRAVENOUS (IV); COMPARISON: CT chest w con* [id number] 01/14/2024 11:22 AM RADIATION DOSE METRICS: Total DLP (mGy-cm): 276.27 FINDINGS: Lungs: The noncalcified nodule in the right middle lobe is slightly smaller on the current study measuring about 9 x 10 mm (previously 11 x 11 mm). There is a right lower lobe noncalcified pulmonary nodule which measures 7 mm (previously 9 mm) (series 5, image 41). There is a stable 10 mm noncalcified nodule in the right lower lobe (series 5, image 36). There is a stable 7 mm noncalcified nodule in the right middle lobe (series 5, image 40). There are several other stable small noncalcified nodules. No new nodules are identified. For patients at low risk (minimal or absent history of smoking and of other known risk factors), no routine follow-up is indicated. For patients at high risk (history of smoking or of other known risk factors), consider optional CT Chest at 12 months. (Reference: Chadd) Pleural spaces: Unremarkable. No pneumothorax. No pleural effusion. Heart: Mild cardiomegaly. There are mitral annulus calcifications and aortic valve calcifications. Coronary arteries: Calcified coronary artery disease. Lymph nodes: Unremarkable. No enlarged lymph nodes. Vasculature: Unremarkable. No aortic aneurysm. Bones/joints: No acute osseous lesions. There are multilevel chronic degenerative changes throughout the thoracic spine. No visible bone metastases. Soft tissues: Asymmetrically dense and slightly spiculated soft tissue in the left breast. Nonemergent mammogram/ultrasound is recommended. The appearance of the left breast is similar in appearance to the prior study. CT/CT chest w con* [id number] IMPRESSION: 1. Multiple noncalcified pulmonary nodules as above. Two of the nodules are slightly smaller on the current study. 2. Stable asymmetrically dense and spiculated soft tissue in the left breast. Nonemergent mammogram/ultrasound is recommended. 3. Calcified coronary artery disease. REFERENCES: Chadd H, et al. Guidelines for Management of Incidental Pulmonary Nodules Detected on CT Images: From the Fleischner Society 2017. Radiology. 2017;284(1):228-243.
[2024-04-20 12:32] LABS: Blood Urea Nitrogen 21 mg/dL (8-23)
[2024-04-20] MEDS: iohexol 350 mg/mL 500 mL Btl (per mL) IV (12:47)
== END 2024-04-20 11:48 | disposition home or self-care (01) ==
LOC: RAD 11:47
PROVIDERS: PCP Electrodiagnostic Medicine; Visit Provider Electrodiagnostic Medicine
DX: C34.92 Malignant neoplasm of unspecified part of left bronchus or lung (principal); R91.8 Other nonspecific abnormal finding of lung field; I25.84 Coronary atherosclerosis due to calcified coronary lesion; N63.20 Unspecified lump in the left breast, unspecified quadrant
CPT/HCPCS: 71260; 82565; 84520

== ENCOUNTER 2024-06-27 11:10 | Outpatient (CLI) | payer MEDICARE, SELFPAY ==
--- NOTE | 2024-06-27 11:15 | MM_ITS ---
WS: [id number] BILATERAL SCREENING DIGITAL TOMOSYNTHESIS MAMMOGRAM WITH CAD HISTORY: SCREEN COMPARISON: 06/25/2023, 01/02/2021 Bilateral CC and MLO views with tomosynthesis and synthetic mammography submitted. Computer aided det ection analyzed. Breast composition: There are scattered areas of fibroglandular density. No suspicious masses, microc alcifications or architectural distortion. Arterial and benign calcifications in each breast. MM/MM scr BI tomosynthesis [id number] IMPRESSION: BI-RADS: 2 - Benign. FOLLOW UP: 1 Year Follow-up
== END 2024-06-27 11:11 | disposition home or self-care (01) ==
PROVIDERS: PCP Electrodiagnostic Medicine; Visit Provider Electrodiagnostic Medicine
DX: Z12.31 Encounter for screening mammogram for malignant neoplasm of breast (principal); R92.323 Mammographic fibroglandular density, bilateral breasts; R92.1 Mammographic calcification found on diagnostic imaging of breast
CPT/HCPCS: 77063; 77067

== ENCOUNTER 2024-10-27 11:30 | Emergency (ER) | payer MEDICARE, SELFPAY ==
[2024-10-27 11:32] VITALS: BP 160/76; PULSE 63; RESP 16; TEMP 36.7; O2SAT 94; BMI 26.6
--- NOTE | 2024-10-27 12:02 | XR_ITS ---
WS: [id number] XR ribs RT mn 3V w CXR1V [id number] REASON FOR EXAM: fall FINDINGS: No acute rib fracture identified. No pneumothorax. No subcutaneous emphysema. Underlying lung and pleura are unremarkable. XR/XR ribs RT mn 3V w CXR1V [id number] IMPRESSION: No acute abnormality.
--- NOTE | 2024-10-27 12:50 | W.ED.FALL ---
HPI - Fall General: Chief Complaint: Fall Stated Complaint: fall-right side pain Time Seen by Provider: 10/27/24 11:44 History of Present Illness: This patient is an 84-year-old white female who presents to the emergency department complaining of right rib cage pain. Patient states she tripped and fell today injuring her right rib cage. Denies other injuries. Related Data Home Medications ?Medication ?Instructions ?Recorded ?Confirmed aspirin 81 mg tablet,delayed 81 mg PO BEDTIME 06/21/20 08/19/23 release levothyroxine 100 mcg tablet 100 mcg PO DAILY 08/17/22 08/19/23 [id number]-bcq- 250 mg-dha 90 1 cap PO DAILY 02/16/23 08/19/23 mg-epa 160 [id number]-[id number] capsule (Ocuvite Adult 50 Plus) pantoprazole 40 mg tablet,delayed 40 mg PO BEDTIME 02/16/23 08/19/23 release (Protonix) chlorthalidone 50 mg tablet 25 mg PO DAILY 02/24/23 08/19/23 metoprolol succinate 100 mg 100 mg PO DAILY 02/24/23 08/19/23 tablet,extended release 24 hr simvastatin 20 mg tablet 20 mg PO DAILY 02/24/23 08/19/23 valsartan 320 mg tablet 320 mg PO DAILY 02/24/23 08/19/23 Previous Rx's ?Medication ?Instructions ?Recorded albuterol sulfate 90 mcg/actuation 1 inh inhalation QID PRN shortness 01/20/23 aerosol inhaler of breath or wheezing #8.5 grams fluticasone propionate 50 2 spray intranasal DAILY #16 grams 05/20/23 mcg/actuation nasal spray,suspension (Flonase Allergy Relief) fluticasone propionate 45 2 puff inhalation BID #12 grams 09/01/23 mcg-salmeterol 21 mcg/actuation HFA inhaler (Advair HFA) Allergies Allergy/AdvReac Type Severity Reaction Status Date / Time hydralazine Allergy Intermediate ADV-Weaknes Verified 08/19/23 10:51 s Review of Systems General: Reports: 10 or more systems reviewed and unremarkable except in HPI and below Musc: Reports: other (Right rib pain) [facility] PFSH: Medical History Encounter for chest tube removal Pneumothorax of right lung after biopsy Peptic ulcer disease Acute blood loss anemia Melena Abdominal pain Acute upper gastrointestinal bleeding GERD (gastroesophageal reflux disease) Dyslipidemia HTN (hypertension) Uterine cancer Urinary hesitancy Recurrent UTI Surgical History H/O esophagogastroduodenoscopy (08/20/20) Gastritis History of colonoscopy with polypectomy (08/20/20) Diverticulosis H/O: hysterectomy H/O tubal ligation Family History Mother , IN HER 80'S Diabetes Father , IN HIS 80'S Hypertension Social History Smoking and tobacco/nicotine status: never used tobacco/nicotine Quit status (tobacco/nicotine): has quit using Year quit tobacco: 1989 Former quit date comment: 1 ppd X 35 years Alcohol intake: never Marital status: / Current occupational status: retired Current occupation: Retired Physical Exam Const: COMMON NORMALS: no acute distress, patient oriented x3 and no limitations GENERAL APPEARANCE: cooperative and comfortable HENMT: COMMON NORMALS: normocephalic, atraumatic, Normal nasal mucous membranes and turbinates present, moist oral mucous membranes and oropharynx normal HEAD & SCALP: normal to inspection, normocephalic and atraumatic FACE & SINUS: normal facial exam NOSE: Normal nasal mucous membranes and turbinates present Eye: COMMON NORMALS: Equal, round and reactive pupils present, EOMs intact bilaterally and conjunctivae normal GENERAL EYE: appearance normal, both eyes and all related structures CONJUNCTIVA: Yes conjunctivae normal PUPIL: Yes Equal, round and reactive pupils present Neck/C-Spine: COMMON NORMALS: supple and no JVD Chest: COMMONS NORMALS: normal inspection of the chest OTHER: Some mild discomfort to palpation along the right upper lateral rib cage. No ecchymosis, no crepitance, no step-off deformities. Resp: COMMON NORMALS: normal respiratory effort and clear to auscultation bilaterally AUSCULTATION: clear to auscultation bilaterally Cardio: COMMON NORMALS: no JVD, regular rate, regular rhythm, No gallops present (Cardio), No murmurs present (Cardio) and No rub (Cardio) RATE: regular rate RHYTHM: regular rhythm GI: COMMON NORMALS: Normal to inspection, nondistended, normoactive bowel sounds present, Soft to palpation and non-tender AUSCULTATION: Yes normoactive bowel sounds PALPATION: Yes Soft to palpation : COMMON NORMALS: Yes no CVA tenderness BLADDER/KIDNEY EXAM: Yes no CVA tenderness Back/Pelvis: COMMON NORMALS: no CVA tenderness and thoracic and lumbar spine normal to inspection Extremity: COMMON NORMALS: normal to inspection Neuro: COMMON NORMALS: patient oriented x3 and CN's II-XII intact bilaterally Psych: COMMON NORMALS: mental status grossly normal, Normal thought process present and cooperative THOUGHT PROCESS: Normal thought process present Skin: COMMON NORMALS: no rashes or lesions noted, turgor normal and no jaundice GENERAL SKIN EXAM: no rashes or lesions noted and turgor normal Course Vital Signs: Vital signs: Vital Signs Temperature 98.0 F 10/27/24 11:32 Pulse Rate 63 10/27/24 11:32 Respiratory Rate 16 10/27/24 11:32 Blood Pressure 160/76 10/27/24 11:32 Pulse Oximetry 94 10/27/24 11:32 Oxygen Delivery Me thod Room Air 10/27/24 11:32 MDM - Fall Medical Decision Making Chest x-ray with right rib films were read by the radiologist as normal. Patient declined pain medication. She states she will be fine just taking ibuprofen at home. I recommended ice to the area. Follow-up with primary care physician as needed. She was discharged in stable condition. Lab Data Radiology Impressions Ribs X-Ray 10/27/24 12:02 IMPRESSION: No acute abnormality. All radiology interpretation(s) finalized by discharge Discharge Plan Discharge Patient Disposition: Home Clinical Impression: Contusion of ribs Qualifiers: Encounter type: initial encounter Laterality: right Qualified Code(s): S20.211A - Contusion of right front wall of thorax, initial encounter Condition: Stable Prescriptions: No Action albuterol sulfate 90 mcg/actuation HFA aerosol inhaler 1 inh inhalation QID PRN (Reason: shortness of breath or wheezing) Qty: 8.5 4RF metoprolol succinate 100 mg tablet extended release 24 hr 100 mg PO DAILY chlorthalidone 50 mg tablet 25 mg PO DAILY simvastatin 20 mg tablet 20 mg PO DAILY valsartan 320 mg tablet 320 mg PO DAILY fluticasone propionate [Flonase Allergy Relief] 50 mcg/actuation spray,suspension 2 spray intranasal DAILY Qty: 16 6RF Rx Instructions: administer into each nostril fluticasone propion-salmeterol [Advair HFA] 45-21 mcg/actuation HFA aerosol inhaler 2 puff inhalation BID Qty: 12 6RF aspirin 81 mg Tablet,Delayed Release (Dr/Ec) 81 mg PO BEDTIME Ocuvite Adult 50 Plus 250 mg (90 mg-160 mg) Capsule 1 cap PO DAILY pantoprazole [Protonix] 40 mg tablet,delayed release (DR/EC) 40 mg PO BEDTIME levothyroxine 100 mcg tablet 100 mcg PO DAILY Discharge Orders: Discharge ED (Routine); Ordered 10/27/24 Ordered By: Óscar Browning Referrals: Roc Sage DO [Primary Care Provider, Family Practice] Patient Instructions: Rib Contusion (ED), Pain Management Print Language: [place] Coding Level of Care Code ED Time Clock Repairer for Beka Brown
[2024-10-27 13:03] VITALS: PULSE 63; O2SAT 96
== END 2024-10-27 13:05 | disposition home or self-care (01) ==
PROVIDERS: Emergency Provider Emergency Medicine; PCP Electrodiagnostic Medicine
DX: S20.211A Contusion of right front wall of thorax, initial encounter (principal); Z79.82 Long term (current) use of aspirin; Z87.891 Personal history of nicotine dependence; E78.5 Hyperlipidemia, unspecified; I10 Essential (primary) hypertension; Z85.42 Personal history of malignant neoplasm of other parts of uterus; W01.0XXA Fall on same level from slipping, tripping and stumbling without subsequent striking against object, initial encounter
CPT/HCPCS: 71101; 99283

== ENCOUNTER 2024-12-14 07:21 | Outpatient (RCR) | payer MEDICARE, SELFPAY | END 2024-12-22 23:59 | disposition home or self-care (01) | LOC: SPT 07:21 | PROVIDERS: Visit Provider Electrodiagnostic Medicine | DX: R26.89 Other abnormalities of gait and mobility (principal) | CPT/HCPCS: 97110; 97112; 97161 ==

== ENCOUNTER 2024-12-23 05:00 | Outpatient (RCR) | payer MEDICARE, SELFPAY | END 2025-01-22 23:59 | disposition home or self-care (01) | LOC: SPT 05:00 | PROVIDERS: Visit Provider Electrodiagnostic Medicine | DX: R26.89 Other abnormalities of gait and mobility (principal) | CPT/HCPCS: 97110; 97112 ==

== ENCOUNTER 2025-01-31 07:14 | Outpatient (CLI) | payer MEDICARE, SELFPAY ==
--- NOTE | 2025-01-31 07:18 | CT_ITS ---
WS: [id number] CT chest w con* [id number] HISTORY: NON SMALL CELL LUNG CANCER TECHNIQUE: Axial imaging performed through the thorax. Coronal and sagittal reformats are submitted. All CT scans at [facility] use at least one of these dose optimization techniques: automated exposure control; mA and/or kV adjustment per patient size (includes targeted exams where dose is matched to clinical indication); or iterative reconstruction. CONTRAST: Omnipaque 350; 100 mL IV. DLP: 257.83 mGy.cm COMPARISON: 04/20/2024, 01/14/2024, 12/22/2022 Lungs and central airway: Multiple stable, noncalcified RIGHT middle and RIGHT lower lobe pulmonary nodules. Nodules have been described since 2022. The largest nodule is 8 mm in the RIGHT middle lobe. There are additional smaller nodules and satellite nodules in the RIGHT middle and RIGHT lower lobe. Stable subpleural nodule in the lingula. 3 mm nodule LEFT lower lobe is stable. Pleura: Normal. No pleural effusion. Heart and pericardium: Mild cardiomegaly. Coronary artery calcifications. Mediastinum and tonny: No adenopathy. Vessels: Normal size aortic and pulmonary artery. No coronary artery calcifications. Chest wall and lower neck: Reidentified prominent LEFT breast tissue which is stable. Upper abdomen: Visualized liver is negative. Mild diffuse pancreatic duct dilatation is similar to the prior study. The entire pancreatic head is not included. Common bile duct size is similar to prior studies measuring 6.8 mm. No adrenal mass. Osseous structures: Mild degenerative disc disease and osteophytes in the thoracic spine. CT/CT chest w con* [id number] IMPRESSION: 1. Stable pulmonary nodules since 2022. No new or increasing nodule size. No p neumonia. 2. No mediastinal or hilar adenopathy. 3. Mild cardiomegaly. 4. No adrenal mass.
[2025-01-31] MEDS: iohexol 350 mg/mL 500 mL Btl (per mL) IV (08:04)
[2025-01-31 08:23] LABS: Blood Urea Nitrogen 17 mg/dL (8-23)
== END 2025-01-31 07:15 | disposition home or self-care (01) ==
LOC: RAD 07:15
PROVIDERS: Radiology Diagnostic Radiology; PCP Electrodiagnostic Medicine; Visit Provider Electrodiagnostic Medicine
DX: C34.90 Malignant neoplasm of unspecified part of unspecified bronchus or lung (principal); I51.7 Cardiomegaly
CPT/HCPCS: 71260; 82565; 84520

== ENCOUNTER 2025-03-07 13:51 | Outpatient (CLI) | payer MEDICARE, SELFPAY ==
[2025-03-07 14:15] VITALS: PULSE 75; RESP 18; O2SAT 95
== END 2025-03-07 13:52 | disposition home or self-care (01) ==
LOC: RT 13:53
PROVIDERS: PCP Electrodiagnostic Medicine; Visit Provider Electrodiagnostic Medicine
DX: C34.90 Malignant neoplasm of unspecified part of unspecified bronchus or lung (principal)
CPT/HCPCS: 94060; 94726; 94729; J7613

== ENCOUNTER → 2025-03-13 08:18 | Outpatient (BNVA) | payer MEDICARE, SELFPAY | PROVIDERS: Absent Provider Electrodiagnostic Medicine; PCP Electrodiagnostic Medicine; Visit Provider Internal Medicine | DX: J45.30 Mild persistent asthma, uncomplicated (principal); J82.83 Eosinophilic asthma; R91.8 Other nonspecific abnormal finding of lung field; C34.90 Malignant neoplasm of unspecified part of unspecified bronchus or lung; Z87.891 Personal history of nicotine dependence | CPT/HCPCS: 99214; Q3014 ==

== ENCOUNTER → 2025-03-20 08:17 | Outpatient (BNVA) | payer MEDICARE, SELFPAY | PROVIDERS: PCP Electrodiagnostic Medicine; Visit Provider Nurse Practitioner Family | DX: L82.1 Other seborrheic keratosis (principal); L98.8 Other specified disorders of the skin and subcutaneous tissue; D22.39 Melanocytic nevi of other parts of face; L57.8 Other skin changes due to chronic exposure to nonionizing radiation; X32.XXXA Exposure to sunlight, initial encounter; L81.4 Other melanin hyperpigmentation | CPT/HCPCS: 99213 ==

== ENCOUNTER → 2025-05-08 10:51 | Outpatient (BNVA) | payer MEDICARE, SELFPAY | PROVIDERS: PCP Electrodiagnostic Medicine; Visit Provider Internal Medicine | DX: R91.8 Other nonspecific abnormal finding of lung field (principal); J82.83 Eosinophilic asthma; C34.90 Malignant neoplasm of unspecified part of unspecified bronchus or lung; Z87.891 Personal history of nicotine dependence; J44.9 Chronic obstructive pulmonary disease, unspecified; T78.40XA Allergy, unspecified, initial encounter; X58.XXXA Exposure to other specified factors, initial encounter | CPT/HCPCS: 99214; Q3014 ==